=== PATIENT | female | born 1955 | race Caucasian/White ===

== ENCOUNTER 2016-10-26 11:58 | Day surgery (SDC) | payer OTHER ==
[~2016-10-26 11:58] MED LIST: DIPHENHYDRAMINE HCL 50 MG/ML VIAL ONE; EPINEPHRINE INJ 1 MG/10 ML DISP.SYRIN ONE; FENTANYL CITRATE INJ/PF 100 MCG/2 ML AMPUL ONE; FLUMAZENIL INJ 0.5 MG/5 ML VIAL IV ONE; GLUCAGON,HUMAN RECOMB 1 MG INJ ONE; MIDAZOLAM 2 MG/2 ML INJ ONE; NALOXONE HCL INJ/PF 0.4 MG/1 ML SDV ONE; ONDANSETRON HCL INJ/PF 4 MG/2 ML SDV ONE; PROMETHAZINE HCL INJ 25 MG/1 ML VIAL ONE
--- NOTE | 2016-10-26 14:30 | Operative Report ---
Operative Report DATE OF SURGERY: 10/26/16 Operative Report: The risks benefits and alternatives of the procedure explained to the patient in detail and informed consent is obtained that GIF Olympus video scope was inserted into the patient's mouth and hypopharynx the esophagus is identified intubated and insufflated the scope was then advanced through the esophagus stomach and duodenum retroflexion maneuver is done the esophagus stomach and first and second portions of the duodenum examined PREOPERATIVE DIAGNOSIS: Dysfunctional PEG tube POSTOPERATIVE DIAGNOSIS: PEG tube changed with endoscopic assistance. PEG tube was attempted to be pulled out after local sedation and lubrication was provided. However bumper was not able to be pulled out. It did appear calcified after upper endoscopy was done. OPERATION: EGD with percutaneous endoscopic gastrostomy tube change SURGEON: CLAUDIA GASCA ANESTHESIA: Moderate Sedation - 1 mg of Versed administered. TISSUE REMOVED OR ALTERED: None. COMPLICATIONS: None. ESTIMATED BLOOD LOSS: none. INTRAOPERATIVE FINDINGS: Initial attempt at percutaneous removal was unsuccessful. Upper endoscopy had to be done to assist change of the PEG tube. The upper endoscopy is performed the old bumper of the indwelling PEG tube was calcified. This explained the fact that it could not be removed transabdominally. The the bumper was snared. It was cut on the outside. The bumper was retrieved. A new PEG tube was inserted 6 mL of saline was used to insufflate the balloon photodocumentation is obtained PROCEDURE: Patient tolerated the procedure well. No immediate postprocedure complications are noted. Patient is discharged in good condition. Discharge date 10/26/2016 Discharge diet: Regular. Discharge activity: Regular. Follow-up in 2-3 weeks Patient is instructed to call the office or proceed to the emergency room to any further problems or questions Social work up in called to arrange for home assistance
[2016-10-26 15:01] VITALS: BP 118/69
== END 2016-10-26 14:45 | disposition home or self-care (01) ==
LOC: END 11:58
PROVIDERS: ATTEND Internal Medicine Gastroenterology
PROC: 0DH63UZ Insertion of Feeding Device into Stomach, Percutaneous Approach (ICD-10-PCS; principal; 2016-10-26 12:30)
DX: R13.10 Dysphagia, unspecified (principal); I10 Essential (primary) hypertension; E11.9 Type 2 diabetes mellitus without complications; Z86.73 Personal history of transient ischemic attack (TIA), and cerebral infarction without residual deficits; Z79.82 Long term (current) use of aspirin; Z79.899 Other long term (current) drug therapy; Z79.4 Long term (current) use of insulin; Z79.02 Long term (current) use of antithrombotics/antiplatelets
CPT/HCPCS: 43246; 82962; J2250; 43235; 43760; J0171; J1200; J1610; J2310; J2405; J2550; J3010; J3490

== ENCOUNTER 2017-05-12 17:10 | Emergency (ER) | payer OTHER ==
--- NOTE | 2017-05-12 17:29 | ER Document Report ---
ED Blood Pressure Problem - General Chief Complaint: Blood Pressure Problem Stated Complaint: HIGH BLOOD PRESSURE Time Seen by Provider: 05/12/17 17:15 Notes: The patient is a 62-year-old female, past medical history prior CVA with residual left-sided weakness, hyperlipidemia, presents by EMS from home after her occupational therapist took her blood pressure and was 170/80. Patient said that she used to have hypertension and was on medications, but the medications were stopped 1 year ago because her blood pressure was remaining 120 /80. Her primary care physician is at [facility]. Patient denies any complaints at this time. She denies increased weakness, numbness, tingling, blurry vision , headache, fevers, urinary symptoms, chest pain, shortness of breath or difficulty swallowing. TRAVEL OUTSIDE OF THE [place] IN LAST 30 DAYS: No - Related Data Allergies/Adverse Reactions: No Known Allergies Allergy (Verified 10/21/16 15:55) Past Medical History - General Information source: Patient, Relative, Emergency Med Personnel - Social History Smoking Status: Never Smoker Family History: Reviewed & Not Pertinent - Past Medical History Cardiac Medical History: Denies: Hx Coronary Artery Disease, Hx Heart Attack, Hx Hypertension Pulmonary Medical History: Denies: Hx Asthma, Hx Bronchitis, Hx COPD, Hx Pneumonia Neurological Medical History: Reports: Hx Cerebrovascular Accident - 2004, 2014. Denies: Hx Seizures Endocrine Medical History: Reports: Hx Diabetes Mellitus Type 1 Musculoskeltal Medical History: Denies Hx Arthritis - Immunizations Hx Diphtheria, Pertussis, Tetanus Vaccination: Yes Review of Systems - Review of Systems Notes: REVIEW OF SYSTEMS: CONSTITUTIONAL: -fevers, -chills EENT: -eye pain, -difficulty swallowing, -nasal congestion CARDIOVASCULAR:-chest pain, -syncope. RESPIRATORY: -cough, -SOB GASTROINTESTINAL: -abdominal pain, - nausea, -vomiting, -diarrhea GENITOURINARY: -dysuria, -hematuria MUSCULOSKELETAL: -back pain, -neck pain SKIN: -rash or skin lesions. HEMATOLOGIC: -easy bruising or bleeding. LYMPHATIC: -swollen, enlarged glands. NEUROLOGICAL: -altered mental status or loss of consciousness, -headache, - acute neurologic symptoms PSYCHIATRIC: -anxiety, -depression. ALL OTHER SYSTEMS REVIEWED AND NEGATIVE. Physical Exam - Vital signs Vitals: Resp BP Pulse Ox 19 157/72 H 96 05/12/17 17:15 05/12/17 17:15 05/12/17 17:15 - Notes Notes: PHYSICAL EXAMINATION: GENERAL: Well-appearing, well-nourished and in no acute distress. HEAD: Atraumatic, normocephalic. EYES: Pupils equal round and reactive to light, extraocular movements intact, sclera anicteric, conjunctiva are normal. ENT: nares patent, oropharynx clear without exudates. Moist mucous membranes. NECK: Normal range of motion, supple without lymphadenopathy LUNGS: Breath sounds clear to auscultation bilaterally and equal. No wheezes rales or rhonchi. HEART: Regular rate and rhythm without murmurs ABDOMEN: Soft, nontender, normoactive bowel sounds. No guarding, no rebound. No masses appreciated. EXTREMITIES: Normal range of motion, no pitting or edema. No cyanosis. NEUROLOGICAL: Chronic left-sided weakness. 5/5 strength in RUE and RLE. No sensory changes. PSYCH: Normal mood, normal affect. SKIN: Warm, Dry, normal turgor, no rashes or lesions noted. Course - Re-evaluation Re-evalutation: Patient has no symptoms at this time. Her blood pressure in the emergency room is 157/72. Without symptoms, no labs are indicated. Instructed patient to begin a blood pressure log and present it to her primary care physician during her next visit next week. Based on ACEP guidelines, patient should be started on blood pressure medications by primary care physicians due to close follow-up and not in the emergency room. Given strict return precautions and the patient and family understand. - Vital Signs Vital signs: Temp Pulse Resp BP Pulse Ox 19 157/72 H 96 05/12/17 17:15 05/12/17 17:15 05/12/17 17:15 Discharge - Discharge Clinical Impression: High blood pressure Qualifiers: Hypertension type: unspecified Qualified Code(s): I10 - Essential (primary) hypertension Condition: Stable Disposition: HOME, SELF-CARE Additional Instructions: HIGH BLOOD PRESSURE, NOT TREAT: When your blood pressure was taken today it was elevated. Today's reading was 157/92. We do not think you need to have your blood pressure treated today. Sometimes, stress or illness causes a temporary elevation of your blood pressure. We suggest that you get your blood pressure measured again during the next few days to see if this elevated blood pressure is more than a temporary abnormality. If your blood pressure is greater than 150/90 on each occasion, you must have treatment. Some simple things you can do to help are: If you have blood pressure medicine but aren't using it regularly, start taking it again. Get some aerobic exercise for at least 20 minutes on a daily basis. (See your doctor before beginning a new exercise program.) Eat a low-fat diet. Lose excess weight. Avoid salty foods and avoid adding salt to any of the foods you eat. Avoid diet pills, decongestants, "energizing" herbs, and other medicines that elevate blood pressure. If left untreated, hypertension greatly enhances your risk for developing heart disease and strokes. Please don't ignore this problem. FOLLOW-UP CARE: If you have been referred to a physician for follow-up care, call the physician s office for an appointment as you were instructed or within the next two days. If you experience worsening or a significant change in your symptoms, notify the physician immediately or return to the Emergency Department at any time for re-evaluation.
[2017-05-12 18:13] VITALS: BP 159/67
== END 2017-05-12 18:13 | disposition home or self-care (01) ==
LOC: ER 17:10
DX: I10 Essential (primary) hypertension (principal); R53.1 Weakness; E78.5 Hyperlipidemia, unspecified
CPT/HCPCS: 99283

== ENCOUNTER 2017-12-01 12:05 | Day surgery (SDC) | payer OTHER ==
[2017-12-01 12:41] VITALS: BP 140/63
[2017-12-01] MEDS ORDERED: LIDOCAINE 2% JELLY 5 ML TUBE ONE (13:02)
--- NOTE | 2017-12-01 13:38 | Operative Report ---
Operative Report DATE OF SURGERY: 12/01/17 Operative Report: Patient is a dysfunctional PEG tube. She was brought to the recovery area. She was placed in a supine position. Old PEG tube was inspected. It appears to be somewhat calcified. No air could be withdrawn out of the old balloon. Lidocaine gel was used to anesthetize the area. We will PEG tube was carefully removed. The new 20 Martiniquais percutaneous gastrostomy tube was then inserted the balloon insufflated with 7 cc of normal saline the area was cleaned dressed and the patient allowed to go home. There was gastric contents that were aspirated and flushed easily. PREOPERATIVE DIAGNOSIS: Dysfunctional PEG tube POSTOPERATIVE DIAGNOSIS: PEG tube change bedside OPERATION: Bedside. Tube change SURGEON: CLAUDIA GASCA ANESTHESIA: Other - None. TISSUE REMOVED OR ALTERED: None. COMPLICATIONS: None. ESTIMATED BLOOD LOSS: As noted above. INTRAOPERATIVE FINDINGS: As noted above. PROCEDURE: Patient can be discharged home. Follow-up PEG tube change in 6 months.
== END 2017-12-01 13:18 | disposition home or self-care (01) ==
LOC: END 12:05
PROVIDERS: ATTEND Internal Medicine Gastroenterology
DX: R13.10 Dysphagia, unspecified (principal); K94.23 Gastrostomy malfunction
CPT/HCPCS: 43760; 82962

== ENCOUNTER 2018-06-19 11:02 | Day surgery (SDC) | payer OTHER ==
--- NOTE | 2018-06-19 12:56 | Operative Report ---
Operative Report DATE OF SURGERY: 06/19/18 Operative Report: Patient is seen bedside. Old PEG tube appears worse for wear and is dysfunctional. 6-7 cc of normal saline now with to decompress the balloon. The old tube was removed without difficulty. A new tube is then introduced 6-7 cc of normal saline was then used to reinsufflate the new balloon It is noted to be secure Procedure completed No sedation PREOPERATIVE DIAGNOSIS: Dysfunctional PEG tube POSTOPERATIVE DIAGNOSIS: As noted PEG tube change OPERATION: Bedside PEG tube change SURGEON: CLAUDIA GASCA ANESTHESIA: Other - No sedation TISSUE REMOVED OR ALTERED: None COMPLICATIONS: None ESTIMATED BLOOD LOSS: None INTRAOPERATIVE FINDINGS: As noted above PROCEDURE: Patient tolerated procedure well She is discharged in good condition Discharge date 06/19/2018 Discharge diet regular. Discharge activity: Regular. Patient is instructed call the office or proceed to the emergency room should there be any further problems or questions
--- NOTE | 2018-06-23 06:43 | Discharge Summary ---
Discharge Summary (SDC) - Discharge Final Diagnosis: dysfunctional PEG Date of Surgery: 06/19/18 Condition: Stable Treatment or Instructions: Peg tube changed without problems Discharge Diet: Tube Feeding (Comments) - as preivous Respiratory Treatments at Home: Deep Breathing/Coughing
== END 2018-06-19 13:00 | disposition home or self-care (01) ==
LOC: END 11:02
PROVIDERS: ATTEND Internal Medicine Gastroenterology
DX: K94.23 Gastrostomy malfunction (principal); R13.10 Dysphagia, unspecified
CPT/HCPCS: 43760

== ENCOUNTER 2019-06-25 11:37 | Inpatient (IN) | payer MEDICARE, OTHER ==
[2019-06-25] MEDS ORDERED: PROPOFOL 1,000 MG/100 ML INFUS..BTL IV ONE (11:42)
[2019-06-25] MEDS: NORMAL SALINE 1000 ML 1,000 ML IV PRN ×2 (11:46→12:46)
--- NOTE | 2019-06-25 11:51 | ER Document Report ---
ED General - General Stated Complaint: UNRESPONSIVE Time Seen by Provider: 06/25/19 11:44 Mode of Arrival: Stretcher Cannot obtain history due to: Unstable vital signs, Altered mental status TRAVEL OUTSIDE OF THE [place] IN LAST 30 DAYS: No - HPI Onset/Duration: Sudden Severity: Moderate Context: Unfortunate frail chronically ill female arrives via EMS after resp failure and intubation in the field. Reportedly vomited at home and then was unresponsive and could not speak. She is intubated upon arrival with 7-[address] 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 Lives at home and can normally converse without difficulty. No recent illness reportedly. FSBS Approx 200 for EMS. Ketamine and rockuronium given in the field plus 500ml NS and 1 mg epi. - Related Data Allergies/Adverse Reactions: No Known Allergies Allergy (Verified 12/01/17 12:42) Past Medical History - Social History Smoking Status: Unknown if Ever Smoked Family History: Reviewed & Not Pertinent - Past Medical History Cardiac Medical History: Reports: Hx Coronary Artery Disease, Hx Hypertension Denies: Hx Heart Attack Pulmonary Medical History: Denies: Hx Asthma, Hx Bronchitis, Hx COPD, Hx Pneumonia Neurological Medical History: Reports: Hx Cerebrovascular Accident - 2004, 2015 (LEFT ARM AND LEFT LEG CONTRACTED) . Denies: Hx Seizures Endocrine Medical History: Reports: Hx Diabetes Mellitus Type 1, Hx Diabetes Mellitus Type 2 Musculoskeletal Medical History: Denies Hx Arthritis - Immunizations Hx Diphtheria, Pertussis, Tetanus Vaccination: Yes Review of Systems - Review of Systems -: Yes ROS unobtainable due to patient's medical condition Physical Exam - Vital signs Vitals: Resp BP Pulse Ox 16 82/65 L 89 L 06/25/19 11:43 06/25/19 11:43 06/25/19 11:43 Interpretation: Normal - Notes Notes: frail elderly female appears older than stated age. - General General appearance: Unresponsive In distress: None - HEENT Head: Normocephalic, Atraumatic Eyes: Normal Pupils: PERRL - Respiratory Respiratory status: No respiratory distress Chest status: Nontender Breath sounds: Decreased air movement Chest palpation: Normal - Cardiovascular Rhythm: Regular Heart sounds: Normal auscultation Murmur: No - Abdominal Inspection: Normal Distension: No distension Bowel sounds: Normal Tenderness: Nontender Organomegaly: No organomegaly - Extremities General upper extremity: Normal inspection, Nontender, Normal color, Normal ROM, Normal temperature General lower extremity: Normal inspection, Nontender, Normal color, Normal ROM, Normal temperature, Normal weight bearing. No: Dimitrios's sign - Neurological Neuro grossly intact: No - Sedated and intubated GCS 3i Sensory: Normal - Psychological Associated symptoms: Other - unable to assess at this time - Skin Skin Temperature: Warm Skin Moisture: Dry Skin Color: Normal Course - Re-evaluation Re-evalutation: 06/25/19 13:37 MDM Frail infirm female with dense hemiparesis, resp failure, likely aspiration pneumonia and sepsis, dm is agressively rehydrated and antibiotics started. I have spoken with ICU physician and he will see. - Vital Signs Vital signs: Temp Pulse Resp BP Pulse Ox 100.5 F H 102 H 16 143/71 H 97 06/26/19 18:00 06/26/19 18:00 06/26/19 18:00 06/26/19 18:00 06/26/19 18:00 - Laboratory Result Diagrams: 06/26/19 05:37 06/26/19 16:37 Laboratory results interpreted by me: 06/25/19 06/25/19 06/25/19 11:50 11:50 11:50 WBC 10.7 H RBC 3.71 L Hgb 11.5 L Hct 33.5 L Plt Count 91 L Seg Neuts % (Manual) 86 H Band Neutrophils % 8 H Lymphocytes % (Manual) 2 L Abs Neuts (Manual) 10.1 H Abs Lymphs (Manual) 0.2 L PT Carbonic Acid ABG pH ABG pCO2 ABG pO2 ABG HCO3 ABG Total CO2 ABG O2 Saturation Potassium 3.4 L BUN 60 H Est GFR (MDRD) Non-Af 51 L Glucose 187 H Lactic Acid 3.2 H Phosphorus Total Protein 4.9 L Albumin 2.4 L Urine Protein Urine Blood Ur Leukocyte Esterase Urine Ascorbic Acid 06/25/19 06/25/19 06/25/19 11:50 11:50 12:08 WBC RBC Hgb Hct Plt Count Seg Neuts % (Manual) Band Neutrophils % Lymphocytes % (Manual) Abs Neuts (Manual) Abs Lymphs (Manual) PT 16.6 H Carbonic Acid ABG pH ABG pCO2 ABG pO2 ABG HCO3 ABG Total CO2 ABG O2 Saturation Potassium BUN Est GFR (MDRD) Non-Af Glucose Lactic Acid Phosphorus 2.2 L Total Protein Albumin Urine Protein 100 H Urine Blood MODERATE H Ur Leukocyte Esterase LARGE H Urine Ascorbic Acid 40 H 06/25/19 14:30 WBC RBC Hgb Hct Plt Count Seg Neuts % (Manual) Band Neutrophils % Lymphocytes % (Manual) Abs Neuts (Manual) Abs Lymphs (Manual) PT Carbonic Acid 1.04 L ABG pH 7.48 H ABG pCO2 34.5 L ABG pO2 49.6 L ABG HCO3 25.3 H ABG Total CO2 26.3 H ABG O2 Saturation 88.1 L Potassium BUN Est GFR (MDRD) Non-Af Glucose Lactic Acid Phosphorus Total Protein Albumin Urine Protein Urine Blood Ur Leukocyte Esterase Urine Ascorbic Acid - Diagnostic Test Radiology reviewed: Image reviewed, Reports reviewed - EKG Interpretation by Wi EKG shows normal: Sinus rhythm Rate: Tachycardia Rhythm: NSR [place]/QRS: Left axis deviation - Sinus Tachy 104 BPM Poor R wave progression LBBB No st elevation Repolarization abnormality diffusely. Critical Care Note - Critical Care Note Total time excluding time spent on procedures (mins): 30 - Discussed pt with family and EMS and resp and reviewed old chart. Discharge - Discharge Clinical Impression: Respiratory failure Qualifiers: Chronicity: acute Respiratory failure complication: hypoxia Qualified Code(s): J96.01 - Acute respiratory failure with hypoxia Aspiration pneumonia Qualifiers: Aspiration pneumonia type: due to vomit Laterality: bilateral Lung location: unspecified part of lung Qualified Code(s): J69.0 - Pneumonitis due to inhalation of food and vomit Diabetes Qualifiers: Diabetes mellitus type: type 2 Diabetes mellitus adjunct faculty for medical terminology insulin use: without snf use Diabetes mellitus complication status: with other specified complication Qualified Code(s): E11.69 - Type 2 diabetes mellitus with other specified complication Condition: Poor Disposition: ADMITTED INPATIENT Unit Admitted: ICU
--- NOTE | 2019-06-25 12:23 | RADIOLOGY REPORT (SQ) ---
EXAM DESCRIPTION: CHEST SINGLE VIEW COMPLETED DATE/TIME: 06/25/2019 12:05 pm REASON FOR STUDY: aloc COMPARISON: 11/27/2014 EXAM PARAMETERS: NUMBER OF VIEWS: One view. TECHNIQUE: Single frontal radiographic view of the chest acquired. RADIATION DOSE: NA LIMITATIONS: None. FINDINGS: LUNGS AND PLEURA: Right mid-lower lung zone airspace disease suggesting infiltrate. Patc hy airspace disease suggested in the left perihilar region may also represent infiltrate. No pneumot horax or pleural effusion. MEDIASTINUM AND HILAR STRUCTURES: No masses. Contour normal. HEART AND VASCULAR STRUCTURES: Heart normal in size. Normal vasculature. BONES: No acute findings. HARDWARE: Endotracheal tube, the tip is approximately 4.5 cm proximal to the lara. Nasogastric tu be, the visualized distal portion projects over the fundus-body of the stomach. OTHER: No other significant finding. IMPRESSION: 1. Bilateral perihilar airspace disease, more extensive on the right, considerations fo r these findings include infiltrates. 2. Endotracheal and nasogastric tubes. TECHNICAL DOCUMENTATION: JOB ID: [id number] [employer]- All Rights Reserved Reading location - IP/workstation name: [email or web address]
[2019-06-25] MEDS ORDERED: AMPICILLIN SOD/SULBACTAM 3 GM VIAL IV ONE (12:28)
--- NOTE | 2019-06-25 12:41 | RADIOLOGY REPORT (SQ) ---
EXAM DESCRIPTION: CT HEAD WITHOUT COMPLETED DATE/TIME: 06/25/2019 12:29 pm REASON FOR STUDY: aloc COMPARISON: 10/16/2014 TECHNIQUE: Axial images acquired through the brain without intravenous contrast. Images reviewed wi th bone, brain and subdural windows. Additional sagittal and coronal reconstructions were generated. Images stored on PACS. All CT scanners at this facility use dose modulation, iterative reconstruction, and/or weight based d osing when appropriate to reduce radiation dose to as low as reasonably achievable (ALARA). [facility]: Dose Right [facility]: CareDose [facility]: Dose Right [facility]: Teradose 4D [facility]: [employer] RADIATION DOSE: CT Rad equipment meets quality standard of care and radiation dose reduction techniq ues were employed. CTDIvol: 53.2 mGy. DLP: 1017 mGy-cm. mGy. LIMITATIONS: None. FINDINGS: VENTRICLES: Enlarged ventricles secondary to ex vacuo enlargement because of atrophy. CEREBRUM: No masses. No hemorrhage. No midline shift. Prior right MCA infarction. There are some small lacunar infarctions. No evidence for acute infarction. Areas of low density in the white matte r most likely chronic small vessel ischemic changes. CEREBELLUM: No masses. No hemorrhage. No alteration of density. No evidence for acute infarction. EXTRAAXIAL SPACES: No fluid collections. No masses. ORBITS AND GLOBE: No intra- or extraconal masses. Normal contour of globe without masses. CALVARIUM: No fracture. PARANASAL SINUSES: Small amount of fluid in the left maxillary sinus. There is opacification of some of the ethmoid air cells. SOFT TISSUES: No mass or hematoma. OTHER: No other significant finding. IMPRESSION: MICROVASCULAR ISCHEMIA AND GENERALIZED ATROPHY. OLD RIGHT MIDDLE CEREBRAL ARTERY INFARC TION. NO ACUTE IMAGING FINDINGS IN THE BRAIN. EVIDENCE OF ACUTE STROKE: NO. COMMENT: Quality ID # [id number]: Final reports with documentation of one or more dose reduction techniques (e.g., Automated exposure control, adjustment of the mA and/or kV according to patient size, use of iterative reconstruction technique) TECHNICAL DOCUMENTATION: JOB ID: [id number] [employer]- All Rights Reserved Reading location - IP/workstation name: [email or web address]
[2019-06-25 12:45] LABS: HEMATOCRIT 33.5 % (36.0-47.0); HEMOGLOBIN 11.5 g/dL (12.0-15.5); MEAN CORPUSCULAR HEMOGLOBIN 30.9 pg (27.0-33.4); MEAN CORPUSCULAR HGB CONC 34.3 g/dL (32.0-36.0); MEAN CORPUSCULAR VOLUME 90 fl (80-97); RED BLOOD COUNT 3.71 10^6/uL (3.72-5.28); RED CELL DISTRIBUTION WIDTH 13.6 % (11.5-14.0); WHITE BLOOD COUNT 10.7 10^3/uL (4.0-10.5)
[2019-06-25 12:50] LABS: ALBUMIN 2.4 g/dL (3.5-5.0); ALKALINE PHOSPHATASE 81 U/L (38-126); ANION GAP 10 (5-19); ASPARTATE AMINO TRANSFERASE 22 U/L (14-36); BILIRUBIN,DIRECT 0.1 mg/dL (0.0-0.4); BILIRUBIN,TOTAL 0.8 mg/dL (0.2-1.3); BLOOD UREA NITROGEN 60 mg/dL (7-20); CALCIUM 8.4 mg/dL (8.4-10.2); CARBON DIOXIDE 29 mmol/L (22-30); CHLORIDE 100 mmol/L (98-107); CREATINE KINASE 30 U/L (30-135); GLUCOSE 187 mg/dL (75-110); POTASSIUM 3.4 mmol/L (3.6-5.0); TOTAL PROTEIN 4.9 g/dL (6.3-8.2)
[2019-06-25 13:01] LABS: CREATINE KINASE MB 0.7 ng/mL (<4.55)
[2019-06-25] MEDS ORDERED: PROPOFOL 1,000 MG/100 ML INFUS..BTL IV PRN (13:04)
--- NOTE | 2019-06-25 13:09 | EKG REPORT ---
SEVERITY:- ABNORMAL ECG - SINUS TACHYCARDIA VENTRICULAR PREMATURE COMPLEX NONSPECIFIC INTRAVENTRICULAR CONDUCTION DELAY =LBBB ABNRM R PROG, CONSIDER ASMI OR LEAD PLACEMENT MINIMAL ST DEPRESSION, DIFFUSE LEADS NEW CHANGES COMPARED WITH 11/27/14 EKG : Confirmed by: Tone Scherer MD 25-Jun-2019 13:09:00
[2019-06-25 13:10] LABS: APPEARANCE,URINE CLOUDY; BILIRUBIN,URINE NEGATIVE (NEGATIVE); COLOR,URINE AMBER; GLUCOSE, URINE NEGATIVE (NEGATIVE); KETONES,URINE NEGATIVE (NEGATIVE); LEUKOCYTE ESTERASE,URINE LARGE (NEGATIVE); NITRITE,URINE NEGATIVE (NEGATIVE); PROTEIN,URINE 100 mg/dL (NEGATIVE); URINE SPECIFIC GRAVITY 1.019; UROBILINOGEN,URINE NEGATIVE mg/dL (<2.0)
[2019-06-25 13:11] LABS: PLATELET COUNT 91 10^3/uL (150-450)
[2019-06-25 13:14] LABS: ABSOLUTE LYMPHOCYTES# (MANUAL) 0.2 10^3/uL (0.5-4.7); ABSOLUTE MONOCYTES # (MANUAL) 0.4 10^3/uL (0.1-1.4); BAND NEUTROPHILS % (MANUAL) 8 % (3-5); BASOPHILS % (MANUAL) 0 % (0-2); EOSINOPHILS % (MANUAL) 0 % (0-6); LYMPHOCYTES % (MANUAL) 2 % (13-45); MONOCYTES % (MANUAL) 4 % (3-13); POLYCHROMASIA SLIGHT; SEGMENTED NEUTROPHILS % (MAN) 86 % (42-78); TOTAL CELLS COUNTED 100; TOXIC VACUOLATION PRESENT
[2019-06-25 13:15] LABS: PLATELET COMMENT DECREASED
[2019-06-25 13:18] LABS: TROPONIN I 0.066 ng/mL
[2019-06-25] MEDS ORDERED: CLINDAMYCIN 600 MG/D5W RTU 600 MG/50 ML RTUPB IV SCH (14:00)
[2019-06-25] MEDS ORDERED: METRONIDAZOLE RTU 500 MG/NS 100 ML IV ONE (14:42)
[2019-06-25 14:53] LABS: ARTERIAL BLOOD BASE EXCESS 2.2 mmol/L; ARTERIAL BLOOD H2CO3 1.04 mmol/L (1.05-1.35); ARTERIAL BLOOD HCO3 25.3 mmol/L (20-24); ARTERIAL BLOOD O2 SATURATION 88.1 % (94-98); ARTERIAL BLOOD PCO2 34.5 mmHg (35-45); ARTERIAL BLOOD PH 7.48 (7.35-7.45); ARTERIAL BLOOD PO2 49.6 mmHg (80-100); ARTERIAL BLOOD TOTAL CO2 26.3 mmol/L (21-25)
[2019-06-25 14:54] LABS: ARTERIAL BLOOD FIO2 40%
[2019-06-25] MEDS ORDERED: WATER FOR INJECTION,STERILE 1,000 ML with SODIUM BICARBONATE 125 MEQ IV PRN ×2 (14:59)
[2019-06-25] MEDS ORDERED: CEFTRIAXONE 1 GM/D5W RTU 1 GM/50 ML RTUPB IV SCH (15:00)
[2019-06-25] MEDS ORDERED: CEFTRIAXONE 2 GM/D5W RTU 2 GM/50 ML RTUPB IV SCH (15:00)
[2019-06-25] MEDS ORDERED: FUROSEMIDE INJ/PF 20 MG/2 ML SDV IV ONE (15:15)
[2019-06-25] MEDS ORDERED: ACETAMINOPHEN SOLN 325 MG/10.15 ML UDCUP PO ONE (15:16)
[2019-06-25 15:31] LABS: INTERNATIONAL RATION (INR) 1.33; PROTHROMBIN TIME 16.6 SEC (11.4-15.4)
[2019-06-25 16:22] LABS: PHOSPHORUS 2.2 mg/dL (2.5-4.5)
[2019-06-25 16:43] LABS: FREE T4 (FREE THYROXINE) 1.33 ng/dL (0.78-2.19)
[2019-06-25 16:56] LABS: THYROID STIMULATING HORMONE 1.13 uIU/mL (0.47-4.68)
[2019-06-25] MEDS ORDERED: NOREPINEPHRINE BITARTRATE INJ/PF 4 MG/4 ML SDV IV ONE (17:15)
[2019-06-25] MEDS ORDERED: DEXTROSE 5%-WATER 250 ML with NOREPINEPHRINE BITARTRATE 4 MG IV PRN ×2 (17:27)
[2019-06-25] MEDS: PROPOFOL 1,000 MG/100 ML INFUS..BTL IV PRN (17:30)
[2019-06-25] MEDS: METRONIDAZOLE 500 MG/NS RTU 500 MG/100 ML RTUPB IV SCH ×2 (18:09→23:58)
[2019-06-25] MEDS ORDERED: MILRINONE LACTATE/D5W 20 MG/100 ML RTUINJ IV PRN (18:19)
[2019-06-25] MEDS ORDERED: ALBUMIN HUMAN 250 ML IV ONE (18:30)
[2019-06-25] MEDS ORDERED: ALBUMIN HUMAN 500 ML IV ONE (18:30)
[2019-06-25 19:40] LABS: HEMATOCRIT 36.2 % (36.0-47.0); HEMOGLOBIN 12.1 g/dL (12.0-15.5); MEAN CORPUSCULAR HEMOGLOBIN 30.2 pg (27.0-33.4); MEAN CORPUSCULAR HGB CONC 33.6 g/dL (32.0-36.0); MEAN CORPUSCULAR VOLUME 90 fl (80-97); PLATELET COUNT 104 10^3/uL (150-450); RED BLOOD COUNT 4.02 10^6/uL (3.72-5.28); RED CELL DISTRIBUTION WIDTH 13.3 % (11.5-14.0); WHITE BLOOD COUNT 14.9 10^3/uL (4.0-10.5)
[2019-06-25] MEDS ORDERED: HEPARIN SOD (PORCINE) 1,000 UNIT/ML 10 ML VIAL IV ONE (19:58)
[2019-06-25 19:59] LABS: ANION GAP 10 (5-19); BLOOD UREA NITROGEN 58 mg/dL (7-20); CALCIUM 8.7 mg/dL (8.4-10.2); CARBON DIOXIDE 27 mmol/L (22-30); CHLORIDE 102 mmol/L (98-107); GLUCOSE 144 mg/dL (75-110); POTASSIUM 3.5 mmol/L (3.6-5.0)
[2019-06-25 20:03] LABS: ABSOLUTE LYMPHOCYTES# (MANUAL) 0.6 10^3/uL (0.5-4.7); ABSOLUTE MONOCYTES # (MANUAL) 0.9 10^3/uL (0.1-1.4); BAND NEUTROPHILS % (MANUAL) 9 % (3-5); BASOPHILS % (MANUAL) 0 % (0-2); EOSINOPHILS % (MANUAL) 0 % (0-6); LYMPHOCYTES % (MANUAL) 4 % (13-45); MONOCYTES % (MANUAL) 6 % (3-13); PLATELET COMMENT ADEQUATE; RBC MORPHOLOGY COMMENT NORMO-CYTIC/CHROMIC; SEGMENTED NEUTROPHILS % (MAN) 81 % (42-78); TOTAL CELLS COUNTED 100
[2019-06-25 20:04] LABS: TOXIC VACUOLATION PRESENT
--- NOTE | 2019-06-25 20:07 | XCELERA REPORT ---
[address] [address] Transthoracic Echocardiogram Report Name: DAHLIA NEGRO Age: 64 yrs Gender: Female : 1955 Patient Status: Inpatient Patient Location: ICU^609^A Study Date: 06/25/2019 05:31 PM Height: 66 in Weight: 140 lb BSA: 1.7 m2 Procedure: A two-dimensional transthoracic echocardiogram with color flow and Doppler was performed. Study Quality: Fair. Reason For Study: reduced function on screening echo Ordering Physician: CARTER CASTREJON Performed By: Pam Zamora Interpretation Summary The left ventricle is borderline dilated. There is normal left ventricular wall thickness. LV EF is 25% to 30% Left ventricular systolic function is severely reduced. Doppler measurements suggest impaired left ventricular relaxation, which is associated with grade I/IV or mild diastolic dysfunction There is severe global hypokinesis of the left ventricle. Septal motion is consistent with conduction abnormality cannot exclude a small sesile apical lanterior and apical laterak wall clot.Later recommend PANFILO to be sure. The right ventricle is normal in size and function. The right atrium is normal. The left atrial size is normal. Probably no ASD ,VSD or PFO seen. There is mild to moderate mitral annular calcification. There is no evidence of mitral valve prolapse. There is no vegetation seen on the mitral valve. There is no mitral valve stenosis. There is a trace amount of mitral regurgitation There is no aortic valvular vegetation. There is no aortic valve stenosis There is aortic sclerosis without aortic stenosis. There is no LVOT obstruction. There is no tricuspid stenosis. There is a trace amount of tricuspid regurgitation Tricuspid regurgitation jet envelope not well defined to measure RV systolic pressure accurately. There is no pulmonic valvular stenosis. There is no pulmonic valvular regurgitation. The aortic root is normal size. The inferior vena cava appeared dilated and decreased < 50% with respiration (RAP 15-20 mmHg) There is no pericardial effusion. MMode/2D Measurements & Calculations RVDd: 2.0 cm LVIDd: 4.1 cm FS: 12.4 % Ao root diam: 3.0 cm IVSd: 0.96 cm LVIDs: 3.6 cm EDV(Teich): Ao root area: 75.6 ml LVPWd: 1.0 cm 7.0 cm2 ESV(Teich): LA dimension: 2.9 cm 55.1 ml EF(Teich): 27.1 % LVLd ap4: 7.4 cm SV(MOD-sp4): EDV(MOD-sp4): 15.0 ml 46.0 ml LVLs ap4: 6.3 cm ESV(MOD-sp4): 31.0 ml EF(MOD-sp4): 32.6 % Doppler Measurements & Calculations MV E max laurie: MV P1/2t max laurie: Ao V2 max: LV V1 max P.2 cm/sec 51.4 cm/sec 111.0 cm/sec 2.9 mmHg MV A max laurie: MV P1/2t: 60.1 msec Ao max P.9 mmHg LV V1 max: 70.3 cm/sec 85.7 cm/sec MVA(P1/2t): 3.7 cm2 MV E/A: 0.60 MV dec slope: 250.3 cm/sec2 MV dec time: 0.26 sec PA V2 max: PI end-d laurie: MV P1/2t-pr_phl: 117.9 cm/sec 122.2 cm/sec 60.1 msec PA max P.7 mmHg Left Ventricle The left ventricle is borderline dilated. There is normal left ventricular wall thickness. LV EF is 25% to 30%. Left ventricular systolic function is severely reduced. Doppler measurements suggest impaired left ventricular relaxation, which is associated with grade I/IV or mild diastolic dysfunction. There is severe global hypokinesis of the left ventricle. Septal motion is consistent with conduction abnormality. cannot exclude a small sesile apical lanterior and apical laterak wall clot.Later recommend PANFILO to be sure. Right Ventricle The right ventricle is normal in size and function. Atria The right atrium is normal. The left atrial size is normal. Probably no ASD ,VSD or PFO seen. Mitral Valve There is mild to moderate mitral annular calcification. There is no evidence of mitral valve prolapse. There is no vegetation seen on the mitral valve. There is no mitral valve stenosis. There is a trace amount of mitral regurgitation. Aortic Valve There is no aortic valvular vegetation. There is no aortic valve stenosis. There is aortic sclerosis without aortic stenosis. There is no LVOT obstruction. No aortic regurgitation is present. Tricuspid Valve There is no tricuspid stenosis. There is a trace amount of tricuspid regurgitation. Tricuspid regurgitation jet envelope not well defined to measure RV systolic pressure accurately. Pulmonic Valve There is no pulmonic valvular stenosis. There is no pulmonic valvular regurgitation. Great Vessels The aortic root is normal size. The inferior vena cava appeared dilated and decreased < 50% with respiration (RAP 15-20 mmHg). Effusions There is no pericardial effusion. : CARTER CASTREJON, Zandra
--- NOTE | 2019-06-25 20:14 | CRITICAL CARE ADMISSION REPORT ---
HPI Date:: 06/25/19 Time:: 15:10 Reason for ICU Reason:: Hypoxic Respiratory Failure HPI: 64-year-old white female with a story of chronic bedridden state secondary to multiple strokes. She is unable to give a history even at baseline and most of the history is obtained from the son who was present in the emergency room. Son relates that she appeared to have multiple bouts of emesis on Tuesday and he was careful to make sure that she did not aspirate. Noted that her blood sugars were elevated uncharacteristically. He was breathing okay however within 24 hours she became sick again and had an aspiration event. The home health aide noted that she had increased work of breathing and was less responsive than her normal baseline diminished cognition. She was seen by EMS and noted to be in acute respiratory distress with hypoxia with saturations less than 88%. She was intubated with a #7 ET tube. Hypotensive on admission she improved with the 2 and half liters of normal saline she was given in combination from EMS and the emergency room staff. She also received clindamycin and ampicillin. In addition to above she was given rocuronium for the intubation as well as ketamine because of the hypotension. He was also noted to be febrile with a temp of 102. Initial chest x-ray shows bilateral mixed interstitial alveolar pattern. Significant amount of time was spent in the emergency room in evaluation for patient's cause for her condition. Bedside critical care echo showed a reduced ejection fraction with septal dyskinesis left bundle branch block changes and EF of approximately 20%. A formal echo shows possible left thrombus. She became hypotensive while in the ICU requiring vasopressor therapy. With a reduced ejection fraction she was started on milrinone. Central line and arterial catheters were placed. On vascular ultrasound for cr itical care procedures it was noted that she had significant calcifications of her arteries and a right radial was unable to be placed resulting in placing a left femoral arterial catheter under ultrasound guidance. A long lengthy discussion was carried out with the son regarding the patient's condition. She had previously declared herself DNR and the son in conjunction with the patient's has agreed. They elected for the intubation hoping for a rapid improvement. We discussed the patient's hypoxia and possible need for higher level of care. At this point the son would not want the [facility] or [facility] ECMO and would want a limited time trial on the ventilator. If she continues to decline he would request comfort measures only. Medications Propofol (Diprivan Rtu 1000 Mg/100 Ml Inf.Bottle) 1,000 mg in 100 mls @ 1.905 mls/hr IV CONTINUOUS PRN; Protocol PRN Reason: THIS MED IS NOT "PRN" Stop: 07/25/19 13:03 Last Titration: 06/25/19 15:51 Dose: 15 mcg/kg/min, 5.72 mls/hr Documented by: ANNY Swanmond Agitation Sedation Sc Document 06/25/19 15:51 SPORTS CLERK (Rec: 06/25/19 15:51 [id number] RASS [place] Agitation Sedation Scale Restless RASS Score 1 Titration Flowsheet Document 06/25/19 15:51 SPORTS CLERK (Rec: 06/25/19 15:51 [id number] Titration Queries Titration 15 IV Rate 5.72 Titration Cumulative Dose 70 Increase/Decrease Increased Elapsed Time 2h 44m Intake Queries Container Volume 93 Titration Intake 3 Cumulative Intake 7 Total Intake (Rx) 7 Volume Adjusted/Wasted 0 Titration: 06/25/19 15:00 Dose: 10 mcg/kg/min, 3.81 mls/hr Documented by: ANNY [place] Agitation Sedation Sc Document 06/25/19 15:00 SPORTS CLERK (Rec: 06/25/19 15:51 [id number] RASS [place] Agitation Sedation Scale Restless RASS Score 1 Titration Flowsheet Document 06/25/19 15:00 SPORTS CLERK (Rec: 06/25/19 15:51 [id number] Titration Queries Titration 10 IV Rate 3.81 Titration Cumulative Dose 40 Increase/Decrease Increased Elapsed Time 1h 53m Intake Queries Container Volume 96 Titration Intake 4 Cumulative Intake 4 Total Intake (Rx) 4 Volume Adjusted/Wasted 0 Admin: 06/25/19 13:07 Dose: 5 mcg/kg/min, 1.91 mls/hr Documented by: ANNY Lgauna Agitation Sedation Sc Document 06/25/19 13:07 SPORTS CLERK (Rec: 06/25/19 13:07 [id number] RASS [place] Agitation Sedation Scale Moderate Sedation RASS Score -3 Titration Flowsheet Document 06/25/19 13:07 SPORTS CLERK (Rec: 06/25/19 13:07 [id number] Titration Queries Titration 5 IV Rate 1.91 Increase/Decrease Started Elapsed Time 0m Intake Queries Container Volume 100 Volume Adjusted/Wasted 0 Comment Titration Comment veried and given with HARRY Boss Propofol (Diprivan Rtu 1000 Mg/100 Ml Inf.Bottle) 1,000 mg in 100 mls @ 1.905 mls/hr IV CONTINUOUS PRN; Protocol PRN Reason: THIS MED IS NOT "PRN" Stop: 07/25/19 14:24 Last Titration: 06/25/19 18:10 Dose: 25 mcg/kg/min, 9.53 mls/hr Documented by: MEÑO [place] Agitation Sedation Sc Document 06/25/19 18:10 RHU (Rec: 06/25/19 19:58 U [email or web address]) RASS [place] Agitation Sedation Scale Deep Sedation RASS Score -4 Titration Flowsheet Document 06/25/19 18:10 RHU (Rec: 06/25/19 19:58 U [email or web address]) Titration Queries Titration 25 IV Rate 9.53 Titration Cumulative Dose 40 Increase/Decrease Increased Elapsed Time 40m Intake Queries Container Volume 96 Titration Intake 1 Cumulative Intake 4 Total Intake (Rx) 4 Volume Adjusted/Wasted 0 Titration: 06/25/19 18:00 Dose: 20 mcg/kg/min, 7.62 mls/hr Documented by: MEÑO [place] Agitation Sedation Sc Document 06/25/19 18:00 RHU (Rec: 06/25/19 19:57 U [email or web address]) RASS [place] Agitation Sedation Scale Moderate Sedation RASS Score -3 Titration Flowsheet Document 06/25/19 18:00 RHU (Rec: 06/25/19 19:57 U [email or web address]) Titration Queries Titration 20 IV Rate 7.62 Titration Cumulative Dose 30 Increase/Decrease Increased Elapsed Time 30m Intake Queries Container Volume 97 Titration Intake 3 Cumulative Intake 3 Total Intake (Rx) 3 Volume Adjusted/Wasted 0 Admin: 06/25/19 17:30 Dose: 15 mcg/kg/min, 5.72 mls/hr Documented by: MEÑO [place] Agitation Sedation Sc Document 06/25/19 17:30 RHU (Rec: 06/25/19 19:56 U [email or web address]) RASS [place] Agitation Sedation Scale Light Sedation RASS Score -2 Titration Flowsheet Document 06/25/19 17:30 RHU (Rec: 06/25/19 19:56 U [email or web address]) Titration Queries Titration 15 IV Rate 5.72 Increase/Decrease Started Elapsed Time 0m Intake Queries Container Volume 100 Volume Adjusted/Wasted 0 Metronidazole (Flagyl Rtu 500 Mg/Ns 100ml Premix) 500 mg in 100 mls @ 100 mls/hr IV Q6 LAURE Stop: 07/02/19 17:59 Last Admin: 06/25/19 18:09 Dose: 100 mls/hr, 100 mls/hr Documented by: CCUSTY Infusion Flowsheet Document 06/25/19 18:09 CCU (Rec: 06/25/19 18:10 CCU [email or web address]) Infusion Queries Infusion Dose 100 IV Rate 100 Increase/Decrease Started Elapsed Time 0m Intake Queries Container Volume 100 Volume Adjusted/Wasted 0 Norepinephrine Bitartrate 4 mg (/ Dextrose) 250 mls @ 0 mls/hr IV CONTINUOUS PRN; Protocol PRN Reason: THIS MED IS NOT "PRN" Stop: 07/25/19 17:26 Last Titration: 06/25/19 17:55 Dose: 5 mcg/hr, 0.31 mls/hr Documented by: MEÑO Infusion Flowsheet Document 06/25/19 17:55 RHU (Rec: 06/25/19 19:54 [facility] Infusion Queries Infusion Dose 5 IV Rate 0.31 Infusion Cumulative Dose 0 Increase/Decrease Running Elapsed Time 20m Intake Queries Container Volume 250 Infusion Intake 0 Cumulative Intake 0 Total Intake (Rx) 0 Volume Adjusted/Wasted 0 Comment Infusion Comment PER Dr. Dior Titration Flowsheet Document 06/25/19 17:55 RHU (Rec: 06/25/19 19:54 [facility] Titration Queries Titration 5 IV Rate 0.31 Titration Cumulative Dose 0 Increase/Decrease Increased Elapsed Time 20m Intake Queries Container Volume 250 Titration Intake 0 Cumulative Intake 0 Total Intake (Rx) 0 Volume Adjusted/Wasted 0 Titration: 06/25/19 17:45 Dose: 5 mcg/hr, 0.31 mls/hr Documented by: REHUNTER Infusion Flowsheet Document 06/25/19 17:45 RHU (Rec: 06/25/19 19:54 [facility] Infusion Queries Infusion Dose 5 IV Rate 0.31 Infusion Cumulative Dose 0 Increase/Decrease Increased Elapsed Time 10m Intake Queries Container Volume 250 Infusion Intake 0 Cumulative Intake 0 Total Intake (Rx) 0 Volume Adjusted/Wasted 0 Titration Flowsheet Document 06/25/19 17:45 RHU (Rec: 06/25/19 19:54 RHU [email or web address]) Titration Queries Titration 3 IV Rate 0.19 Titration Cumulative Dose 0 Increase/Decrease Increased Elapsed Time 10m Intake Queries Container Volume 250 Titration Intake 0 Cumulative Intake 0 Total Intake (Rx) 0 Volume Adjusted/Wasted 0 Admin: 06/25/19 17:35 Dose: 3 mcg/hr, 0.19 mls/hr Documented by: MATTHEWER Infusion Flowsheet Document 06/25/19 17:35 RHU (Rec: 06/25/19 19:52 RHU [email or web address]) Infusion Queries Infusion Dose 3 IV Rate 0.19 Increase/Decrease Started Elapsed Time 0m Intake Queries Container Volume 250 Volume Adjusted/Wasted 0 Titration Flowsheet Document 06/25/19 17:35 RHU (Rec: 06/25/19 19:52 RHU [email or web address]) Titration Queries Titration 2 IV Rate 0.13 Increase/Decrease Started Elapsed Time 0m Intake Queries Container Volume 250 Volume Adjusted/Wasted 0 Milrinone Lactate/Dextrose (Primacor Rtu 20 Mg-D5w 100 Ml Premix Bag) 20 mg in 100 mls @ 0 mls/hr IV CONTINUOUS PRN; Protocol PRN Reason: THIS MED IS NOT "PRN" Stop: 07/25/19 18:18 Last Admin: 06/25/19 20:09 Dose: 0.25 mcg/kg/min, 4.51 mls/hr Documented by: HFLEMING Titration Flowsheet Document 06/25/19 20:09 HFL (Rec: 06/25/19 20:09 [facility]) Titration Queries Titration 0.25 IV Rate 4.51 Increase/Decrease Started Elapsed Time 0m Intake Queries Container Volume 100 Volume Adjusted/Wasted 0 Discontinued Medications Acetaminophen (Tylenol Soln 325 Mg/10.15 Ml Udcup) 650 mg PO NOW ONE Stop: 06/25/19 15:17 Last Admin: 06/25/19 15:43 Dose: 650 mg Documented by: ANNY Comments: GIVEN THRU PEG PER MD MYERS Indications for Use Document 06/25/19 15:43 SPORTS CLERK (Rec: 06/25/19 15:44 SPORTS CLERK [id number]) Indications for Use Indication for Use Fever Vital Sign Review-Temperature Temperature (97.0 F-100.4 F) 102.8 F Re-Assess: LOUIS Indications for Use Document 06/25/19 17:06 KGO (Rec: 06/25/19 17:06 KGO [id number]) Indications for Use Indication for Use Fever Vital Sign Review-Temperature Temperature (97.0 F-100.4 F) 102.7 F Ampicillin Sodium/Sulbactam Sodium (Unasyn Inj 3 Gm Vial) 3 gm IV IVBAG (ED) ONE Stop: 06/25/19 12:29 Last Admin: 06/25/19 13:03 Dose: 3 gm Documented by: ANNY Infusion Flowsheet Document 06/25/19 13:03 SPORTS CLERK (Rec: 06/25/19 13:04 SPORTS CLERK [id number]) Comment Infusion Comment stopped 1403 Furosemide (Lasix Inj/Pf 20 Mg/2 Ml Sdv) 20 mg IV NOW ONE Stop: 06/25/19 15:16 Last Admin: 06/25/19 15:32 Dose: 20 mg Documented by: ANNY Propofol (Diprivan Rtu 1000 Mg/100 Ml Inf.Bottle) Confirm Administered Dose 1,000 mg in 100 mls @ ud IV .STK-MED ONE Stop: 06/25/19 11:43 Last Admin: 06/25/19 13:05 Dose: Not Given Documented by: ANNY Non-Admin Reason: Documented Elsewhere Sodium Chloride (Nacl 0.9% 1000 Ml Iv Soln) 1,000 mls @ 0 mls/hr IV X 2 BAGS PRN PRN Reason: THIS MED IS NOT "PRN" Last Infusion: 06/25/19 13:45 Dose: 0 mls/hr Documented by: MSCHRAAD Infusion Flowsheet Document 06/25/19 13:45 MJO (Rec: 06/25/19 13:45 MJO [id number]) Infusion Queries IV Rate 0 Infusion Cumulative Dose Not Applicable Increase/Decrease Infused Elapsed Time 1h 59m Intake Queries Container Volume 0 Infusion Intake 1,000 Cumulative Intake 1,000 Total Intake (Rx) 2,000 Volume Adjusted/Wasted 0 Admin: 06/25/19 12:46 Dose: 1,000 mls/hr Documented by: ANNY Infusion Flowsheet Document 06/25/19 12:46 SPORTS CLERK (Rec: 06/25/19 13:06 SPORTS CLERK [id number]) Infusion Queries IV Rate 1,000 Infusion Cumulative Dose Not Applicable Increase/Decrease Started/Running Elapsed Time 1h 0m Intake Queries Container Volume 1,000 Total Intake (Rx) 1,000 Volume Adjusted/Wasted 0 Infusion: 06/25/19 12:46 Dose: 0 mls/hr Documented by: ANNY Infusion Flowsheet Document 06/25/19 12:46 SPORTS CLERK (Rec: 06/25/19 13:05 [id number] Infusion Queries IV Rate 0 Infusion Cumulative Dose Not Applicable Increase/Decrease Infused Elapsed Time 1h 0m Intake Queries Container Volume 0 Infusion Intake 1,000 Cumulative Intake 1,000 Total Intake (Rx) 1,000 Volume Adjusted/Wasted 0 Admin: 06/25/19 11:46 Dose: 1,000 mls/hr Documented by: ANNY Infusion Flowsheet Document 06/25/19 11:46 SPORTS CLERK (Rec: 06/25/19 13:00 [id number][facility] Infusion Queries IV Rate 1,000 Infusion Cumulative Dose Not Applicable Increase/Decrease Started Elapsed Time 0m Intake Queries Container Volume 1,000 Volume Adjusted/Wasted 0 Clindamycin Phosphate/Dextrose (Cleocin Rtu 600 Mg/D5w 50 Ml Premix) 600 mg in 50 mls @ 50 mls/hr IV Q8 LAURE Stop: 07/02/19 13:59 Last Infusion: 06/25/19 14:56 Dose: 0 mls/hr, 0 mls/hr Documented by: PixelleChuck Infusion Flowsheet Document 06/25/19 14:56 MJO (Rec: 06/25/19 15:10 MJO [id number]) Infusion Queries Infusion Dose 0 IV Rate 0 Infusion Cumulative Dose 600 Increase/Decrease Infused Elapsed Time 1h 0m Intake Queries Container Volume 0 Infusion Intake 50 Cumulative Intake 50 Total Intake (Rx) 50 Volume Adjusted/Wasted 0 Admin: 06/25/19 13:56 Dose: 50 mls/hr, 50 mls/hr Documented by: BeSmart Infusion Flowsheet Document 06/25/19 13:56 MJO (Rec: 06/25/19 13:56 [email or web address]) Infusion Queries Infusion Dose 50 IV Rate 50 Increase/Decrease Started Elapsed Time 0m Intake Queries Container Volume 50 Volume Adjusted/Wasted 0 Ceftriaxone Sodium/Dextrose (Rocephin Rtu 2 Gm/D5w 50 Ml Premix Bag) 2 gm in 50 mls @ 100 mls/hr IV DAILY LAURE Stop: 07/02/19 14:59 Last Infusion: 06/25/19 16:15 Dose: 0 mls/hr, 0 mls/hr Documented by: ANGELICA Infusion Flowsheet Document 06/25/19 16:15 KGO (Rec: 06/25/19 17:07 KGO [id number]) Infusion Queries Infusion Dose 0 IV Rate 0 Infusion Cumulative Dose 2 Increase/Decrease Infused Elapsed Time 34m Intake Queries Container Volume 0 Infusion Intake 50 Cumulative Intake 50 Total Intake (Rx) 50 Volume Adjusted/Wasted 0 Admin: 06/25/19 15:41 Dose: 100 mls/hr, 100 mls/hr Documented by: ANNY Antibiotics Document 06/25/19 15:41 SPORTS CLERK (Rec: 06/25/19 15:42 SPORTS CLERK [id number]) Blood Cultures Were blood cultures obtained prior to Yes giving antibiotics? Time blood cultures were obtained 13:00 Date blood cultures were obtained 06/25/19 Infusion Flowsheet Document 06/25/19 15:41 SPORTS CLERK (Rec: 06/25/19 15:42 SPORTS CLERK [id number]) Infusion Queries Infusion Dose 100 IV Rate 100 Increase/Decrease Started Elapsed Time 0m Intake Queries Container Volume 50 Volume Adjusted/Wasted 0 Comment Infusion Comment STOPPED 1611 Metronidazole (Flagyl Rtu 500 Mg/Ns 100ml Premix) 500 mg IV NOW ONE Stop: 06/25/19 14:43 Last Admin: 06/25/19 15:46 Dose: 500 mg Documented by: ANNY Norepinephrine Bitartrate (Levophed Inj/Pf 4 Mg/4 Ml Sdv) Confirm Administered Dose 4 mg IV .STK-MED ONE Stop: 06/25/19 17:16 Last Admin: 06/25/19 19:55 Dose: Not Given Documented by: ROOPAUNTSARAH Non-Admin Reason: scanned elsewhere Vital Signs 06/25/19 06/25/19 06/25/19 11:43 11:44 11:46 Temperature Pulse Rate Respiratory 16 20 18 Rate Blood Pressure 82/65 L Blood Pressure [Left Femoral Artery] Blood Pressure [Right Upper Arm] O2 Sat by Pulse 89 L 90 L 91 L Oximetry 06/25/19 06/25/19 06/25/19 11:47 11:50 11:51 Temperature Pulse Rate Respiratory 16 19 16 Rate Blood Pressure 73/56 L 109/67 Blood Pressure [Left Femoral Artery] Blood Pressure [Right Upper Arm] O2 Sat by Pulse 92 97 97 Oximetry 06/25/19 06/25/19 06/25/19 11:55 11:56 12:00 Temperature Pulse Rate Respiratory 18 20 16 Rate Blood Pressure 124/78 Blood Pressure [Left Femoral Artery] Blood Pressure [Right Upper Arm] O2 Sat by Pulse 97 95 95 Oximetry 06/25/19 06/25/19 06/25/19 12:29 12:30 12:31 Temperature Pulse Rate Respiratory 16 16 16 Rate Blood Pressure 114/61 Blood Pressure [Left Femoral Artery] Blood Pressure [Right Upper Arm] O2 Sat by Pulse 97 98 95 Oximetry 06/25/19 06/25/19 06/25/19 12:32 12:35 12:36 Temperature Pulse Rate Respiratory 16 16 16 Rate Blood Pressure 112/68 116/59 L Blood Pressure [Left Femoral Artery] Blood Pressure [Right Upper Arm] O2 Sat by Pulse 95 94 97 Oximetry 06/25/19 06/25/19 06/25/19 12:40 12:41 12:45 Temperature Pulse Rate Respiratory 16 16 16 Rate Blood Pressure 113/60 Blood Pressure [Left Femoral Artery] Blood Pressure [Right Upper Arm] O2 Sat by Pulse 93 97 93 Oximetry 06/25/19 06/25/19 06/25/19 12:46 12:50 12:51 Temperature Pulse Rate Respiratory 16 16 16 Rate Blood Pressure 118/63 119/74 Blood Pressure [Left Femoral Artery] Blood Pressure [Right Upper Arm] O2 Sat by Pulse 92 92 95 Oximetry 06/25/19 06/25/19 06/25/19 12:55 12:56 13:00 Temperature Pulse Rate Respiratory 16 16 16 Rate Blood Pressure 126/61 H Blood Pressure [Left Femoral Artery] Blood Pressure [Right Upper Arm] O2 Sat by Pulse 96 96 95 Oximetry 06/25/19 06/25/19 06/25/19 13:01 13:05 13:06 Temperature Pulse Rate Respiratory 16 16 16 Rate Blood Pressure 127/64 H 123/71 Blood Pressure [Left Femoral Artery] Blood Pressure [Right Upper Arm] O2 Sat by Pulse 96 95 95 Oximetry 06/25/19 06/25/19 06/25/19 13:30 13:31 14:00 Temperature Pulse Rate Respiratory 16 16 16 Rate Blood Pressure 136/77 H Blood Pressure [Left Femoral Artery] Blood Pressure [Right Upper Arm] O2 Sat by Pulse 94 94 94 Oximetry 06/25/19 06/25/19 06/25/19 14:01 14:30 14:31 Temperature Pulse Rate Respiratory 17 19 18 Rate Blood Pressure 137/71 H 128/70 H Blood Pressure [Left Femoral Artery] Blood Pressure [Right Upper Arm] O2 Sat by Pulse 94 89 L 92 Oximetry 06/25/19 06/25/19 06/25/19 15:00 15:01 15:30 Temperature Pulse Rate Respiratory 21 H 20 21 H Rate Blood Pressure 115/67 Blood Pressure [Left Femoral Artery] Blood Pressure [Right Upper Arm] O2 Sat by Pulse 87 L 88 L 88 L Oximetry 06/25/19 06/25/19 06/25/19 15:31 15:53 15:54 Temperature Pulse Rate Respiratory 24 H 23 H 21 H Rate Blood Pressure 108/68 95/66 L Blood Pressure [Left Femoral Artery] Blood Pressure [Right Upper Arm] O2 Sat by Pulse 88 L 85 L 87 L Oximetry 06/25/19 06/25/19 06/25/19 16:00 16:01 16:10 Temperature Pulse Rate Respiratory 22 H 27 H Rate Blood Pressure 86/58 L Blood Pressure [Left Femoral Artery] Blood Pressure [Right Upper Arm] O2 Sat by Pulse 86 L 85 L 87 L Oximetry 06/25/19 06/25/19 06/25/19 16:28 16:29 16:34 Temperature 101.2 F H Pulse Rate 111 H Respiratory 30 H 28 H 24 H Rate Blood Pressure 87/60 L 87/60 L Blood Pressure [Left Femoral Artery] Blood Pressure 87/60 L [Right Upper Arm] O2 Sat by Pulse 94 Oximetry 06/25/19 06/25/19 06/25/19 16:53 17:00 17:13 Temperature Pulse Rate 103 H Respiratory 22 H 21 H Rate Blood Pressure Blood Pressure [Left Femoral Artery] Blood Pressure [Right Upper Arm] O2 Sat by Pulse 87 L 87 L Oximetry 06/25/19 06/25/19 06/25/19 17:14 17:22 17:23 Temperature Pulse Rate Respiratory 21 H 22 H 21 H Rate Blood Pressure 59/39 L 82/41 L Blood Pressure [Left Femoral Artery] Blood Pressure [Right Upper Arm] O2 Sat by Pulse 87 L 86 L 86 L Oximetry 06/25/19 06/25/19 06/25/19 17:27 17:28 17:42 Temperature Pulse Rate Respiratory 22 H 21 H 12 Rate Blood Pressure 71/34 L Blood Pressure [Left Femoral Artery] Blood Pressure [Right Upper Arm] O2 Sat by Pulse 89 L 88 L 88 L Oximetry 06/25/19 06/25/19 06/25/19 17:43 17:57 17:58 Temperature Pulse Rate Respiratory 16 18 18 Rate Blood Pressure 76/47 L 101/58 L Blood Pressure [Left Femoral Artery] Blood Pressure [Right Upper Arm] O2 Sat by Pulse 87 L 90 L 92 Oximetry 06/25/19 06/25/19 06/25/19 18:00 18:12 18:13 Temperature Pulse Rate Respiratory 16 19 20 Rate Blood Pressure 112/55 L Blood Pressure [Left Femoral Artery] Blood Pressure [Right Upper Arm] O2 Sat by Pulse 93 93 94 Oximetry 06/25/19 06/25/19 06/25/19 18:27 18:28 18:42 Temperature Pulse Rate Respiratory 20 26 H 32 H Rate Blood Pressure 124/55 L Blood Pressure [Left Femoral Artery] Blood Pressure [Right Upper Arm] O2 Sat by Pulse Oximetry 06/25/19 06/25/19 06/25/19 18:43 18:53 18:57 Temperature 100.8 F H Pulse Rate 77 Respiratory 29 H 17 17 Rate Blood Pressure 107/51 L Blood Pressure 97/52 L [Left Femoral Artery] Blood Pressure [Right Upper Arm] O2 Sat by Pulse 90 L Oximetry 06/25/19 06/25/19 06/25/19 18:58 19:00 19:12 Temperature Pulse Rate Respiratory 17 26 H 17 Rate Blood Pressure 102/50 L Blood Pressure [Left Femoral Artery] Blood Pressure [Right Upper Arm] O2 Sat by Pulse Oximetry 06/25/19 06/25/19 06/25/19 19:13 19:27 19:28 Temperature Pulse Rate Respiratory 16 21 H 26 H Rate Blood Pressure 108/46 L 109/51 L Blood Pressure [Left Femoral Artery] Blood Pressure [Right Upper Arm] O2 Sat by Pulse 91 L 89 L Oximetry 06/25/19 06/25/19 19:42 19:43 Temperature Pulse Rate Respiratory 27 H 18 Rate Blood Pressure 109/56 L Blood Pressure [Left Femoral Artery] Blood Pressure [Right Upper Arm] O2 Sat by Pulse 79 L 89 L Oximetry Chest X-Ray 06/25/19 11:45 IMPRESSION: 1. Bilateral perihilar airspace disease, more extensive on the right, considerations for these findings include infiltrates. 2. Endotracheal and nasogastric tubes. Head CT 06/25/19 11:45 IMPRESSION: MICROVASCULAR ISCHEMIA AND GENERALIZED ATROPHY. 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 NO ACUTE IMAGING FINDINGS IN THE BRAIN. EVIDENCE OF ACUTE STROKE: NO. History obtained from:: Son and ED staff - Diagnosis/Plan (1) Cardiogenic shock Is this a current diagnosis for this admission?: Yes (2) ARDS (adult respiratory distress syndrome) Is this a current diagnosis for this admission?: Yes (3) Aspiration pneumonia Qualifiers: Aspiration pneumonia type: due to vomit Laterality: bilateral Lung location: unspecified part of lung Qualified Code(s): J69.0 - Pneumonitis due to inhalation of food and vomit Is this a current diagnosis for this admission?: Yes (4) Lactic acid acidosis Is this a current diagnosis for this admission?: Yes (5) Hypotension arterial Qualifiers: Hypotension type: other hypotension type Qualified Code(s): I95.89 - Other hypotension Is this a current diagnosis for this admission?: Yes (6) Diabetes Qualifiers: Diabetes mellitus type: type 2 Diabetes mellitus correction insulin use: without moth exterminator use Diabetes mellitus complication status: with other specified complication Qualified Code(s): E11.69 - Type 2 diabetes mellitus with other specified complication Is this a current diagnosis for this admission?: Yes Past Medical History Cardiac Medical History: Reports: Hyperlipidema, Hypertension Denies: Atrial Fibrillation, Congestive Heart Failure, Coronary Artery Disease, Myocardial Infarction Pulmonary Medical History: Denies: Asthma, Bronchitis, Chronic Obstructive Pulmonary Disease (COPD), Pneumonia EENT Medical History: Denies: None, Cataracts, Eyes, Ears, Nose, Throat, Other Neurological Medical History: Reports: Ischemic CVA Denies: Hemorrhagic CVA, Seizures Endocrine Medical History: Reports: Diabetes Mellitus Type 2 - Diagnosed in 2006 type II [id number] Denies: Diabetes Mellitus Type 1 Renal/ Medical History: Denies: Chronic Kidney Disease, End Stage Renal Disease Malignancy Medical History: Denies: None GI Medical History: Reports: Other Denies: Cirrhosis, Crohn's Disease, Diverticulitis, Gastroesophageal Reflux Disease, Hepatitis, Hiatal Hernia, Peptic Ulcer Disease, Ulcerative Colitis GI History Note: History of dysphagia with multiple PEG tube placements Musculoskeltal Medical History: Denies: Arthritis Musculoskeletal History Note: 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 Social/Family History - Social History Occupation: Disabled Lives with: Family Smoking Status: Former Smoker Last Time Smoked: Many years ago Frequency of Alcohol Use: None Hx Recreational Drug Use: No Drugs: None Hx Prescription Drug Abuse: No - Family History Family History: Other Family History: Able to be obtained - Medication/Allergies Home Medications: Amlodipine Besylate [Norvasc 5 mg Tablet] 5 mg PO DAILY 06/25/19 Atorvastatin Calcium [Lipitor 80 mg Tablet] 80 mg PO QHS 06/25/19 Clopidogrel Bisulfate [Plavix 75 mg Tablet] 75 mg PO DAILY 06/25/19 Fluoxetine HCl [Prozac 20 mg Capsule] 20 mg PO DAILY 06/25/19 Allergies/Adverse Reactions: No Known Allergies Allergy (Verified 12/01/17 12:42) Review of Systems ROS unobtainable: Due to endotracheal tube, Due to mental status, Other - As per son he noticed that she was warm. She is aspirated multiple times. At baseline, she can only answer yes or no. Her level of cognition is depressed normally however this has worsened today. Son says she has chronic frequent soft stools. She receives tube feeds with Ensure via a PEG tube. He is unable to determine whether she has had chest pain and there is not been any shortness of breath complaints. Physical Exam Vital Signs: Temp Pulse Resp BP Pulse Ox 16 136/77 H 94 06/25/19 13:31 06/25/19 13:31 06/25/19 13:31 Intake & Output 06/24/19 06/25/19 06/26/19 06:59 06:59 06:59 Intake Total 1999 Balance 1999 Weight 63.503 kg Weight/Height Weight 63.503 kg General appearance: PRESENT: thin, well-nourished Exam: Intubated, likely in critically ill appearing 64-year-old female who appears older than stated age hemodynamics as noted above. Eye exam: PRESENT: conjunctiva pink, PERRLA. ABSENT: nystagmus, scleral icterus Ear exam: PRESENT: normal external ear exam Mouth exam: PRESENT: dry mucosa Teeth exam: PRESENT: dental caries, poor dentation Throat exam: PRESENT: other - Unable to evaluate patient intubated. Respiratory exam: PRESENT: crackles, decreased breath sounds, rhonchi. ABSENT: accessory muscle use Cardiovascular exam: PRESENT: tachycardia Pulses: PRESENT: +1 pedal pulses bilateral Vascular exam: ABSENT: normal capillary refill - Capillary refill at 3 -4 seconds, distal digits, foot GI/Abdominal exam: PRESENT: hypoactive bowel sounds, soft. ABSENT: distended, firm, guarding, organolmegaly, rebound, rigid, tenderness Rectal exam: PRESENT: normal inspection. ABSENT: hemorrhoids Gentrourinary exam: PRESENT: indwelling catheter Extremities exam: ABSENT: clubbing Musculoskeletal exam: PRESENT: deformity - Patient has left upper extremity contraction deformity which was present on admission. The left lower extremity is in flexion and ABduction contraction deformity. ABSENT: ambulatory Neurological exam: PRESENT: other - Patient is intubated and had recent neuromuscular blockade. She has chronic contraction deformities of the left upper and lower extremity. Over time she did start to spontaneously move her right upper extremity.. ABSENT: alert, altered, awake Skin exam: ABSENT: cyanosis, erythema, jaundice, mottled, rash, skin tears - No sacral decubiti, urticaria Tubes/Lines: PRESENT: Endotracheal Tube, Peg Tube, Other - Sánchez catheter placed in the emergency room Laboratory/Radiographs Laboratory Results: 06/25/19 11:50 06/25/19 11:50 06/25/19 06/25/19 06/25/19 11:50 11:50 11:50 WBC 10.7 H RBC 3.71 L Hgb 11.5 L Hct 33.5 L MCV 90 MCH 30.9 MCHC 34.3 RDW 13.6 Plt Count 91 L Seg Neutrophils % Not Reportable Carbonic Acid HCO3/H2CO3 Ratio ABG pH ABG pCO2 ABG pO2 ABG HCO3 ABG O2 Saturation ABG Base Excess FiO2 Sodium 139.1 Potassium 3.4 L Chloride 100 Carbon Dioxide 29 Anion Gap 10 BUN 60 H Creatinine 1.08 Est GFR ( Amer) > 60 Glucose 187 H Lactic Acid 3.2 H Calcium 8.4 Magnesium 1.9 Total Bilirubin 0.8 AST 22 Alkaline Phosphatase 81 Total Protein 4.9 L Albumin 2.4 L Urine Color Urine Appearance Urine pH Ur Specific [place] Urine Protein Urine Glucose (UA) Urine Ketones Urine Blood Urine Nitrite Ur Leukocyte Esterase Urine WBC (Auto) Urine RBC (Auto) 06/25/19 06/25/19 11:50 14:30 WBC RBC Hgb Hct MCV MCH MCHC RDW Plt Count Seg Neutrophils % Carbonic Acid 1.04 L HCO3/H2CO3 Ratio 24:1 ABG pH 7.48 H ABG pCO2 34.5 L ABG pO2 49.6 L ABG HCO3 25.3 H ABG O2 Saturation 88.1 L ABG Base Excess 2.2 FiO2 40% Sodium Potassium Chloride Carbon Dioxide Anion Gap BUN Creatinine Est GFR ( Amer) Glucose Lactic Acid Calcium Magnesium Total Bilirubin AST Alkaline Phosphatase Total Protein Albumin Urine Color [place] Urine Appearance CLOUDY Urine pH 5.0 Ur Specific [place] 1.019 Urine Protein 100 H Urine Glucose (UA) NEGATIVE Urine Ketones NEGATIVE Urine Blood MODERATE H Urine Nitrite NEGATIVE Ur Leukocyte Esterase LARGE H Urine WBC (Auto) 57 Urine RBC (Auto) 5 06/25/19 06/25/19 11:50 11:50 Creatine Kinase 30 CK-MB (CK-2) 0.70 Troponin I 0.066 Impressions: Chest X-Ray 06/25/19 11:45 IMPRESSION: 1. Bilateral perihilar airspace disease, more extensive on the right, considerations for these findings include infiltrates. 2. Endotracheal and nasogastric tubes. Head CT 06/25/19 11:45 IMPRESSION: MICROVASCULAR ISCHEMIA AND GENERALIZED ATROPHY. 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 NO ACUTE IMAGING FINDINGS IN THE BRAIN. EVIDENCE OF ACUTE STROKE: NO. EKG: New left bundle branch block from 2015 rightward axis Critical Time Critical Time (minutes): 180 - Includes Critical Care US and Basic echo -: The care of a critically ill patient is dynamic. This note represents a static moment in the admission process. orders and treatments may be given simulataneously and urgentl, and time is not business services representative of the treatment process. This patient requires Critical Care secondary to life threating organ or limb dysfunction. Without the need for Critical Care services, the patient is at risk for increasid mortality and morbidity.
--- NOTE | 2019-06-25 20:19 | Operative Report ---
Bedside Procedure - History of Present Illness Indication for Procedure: Sepsis and Cardiogenic shock Surgeon: CARTER CASTREJON - Central Line Right Internal jugular Time completed: 17:00 Consent obtained: Yes Central line pre-insertion: Sterile PPE donned, Chloraprep applied, Sterile drapes applied Central line size (Fr.): 3 Central line lumen type: Triple Anesthetic type: 1% Lidocaine mL's of anesthesia: 4 Ultrasound guided: Yes CM at insertion site: 15 Line secured with sutures: Yes Central line post-insertion: Blood return from lumens, Biopatch applied, Sutured, Sterile dressing applied, Position confirmed w/ CXR, Other - Position confirmed with ultrasound with wire visible in the internal jugular. CXR shows tip at the RA SVC junction. Complications: No
--- NOTE | 2019-06-25 20:25 | Operative Report ---
Bedside Procedure - History of Present Illness Indication for Procedure: Sepsis with shock Date: 06/25/19 Surgeon: CARTER CASTREJON Provider Note Provider Note: Procedure Placement of left femoral arterial catheter Surgeon: DO Franko [facility] Podiatric Medicine Professor bedside ICU nursing staff Blood loss 10 cc Occasions: None Patient was appropriately identified using chart check name bracelet and ongoing critical care. Consent was obtained from the son prior to the procedure. The right wrist was prepped and draped however a suitable artery was not able to be found. Next the only available site was the left femoral region and this was p repped and draped with chlorhexidine x2. After allowing for sufficient drying and sterility regional barrier precautions were used as well as nonsterile mask and sterile gloves and hat. Under dynamic ultrasound guidance with sterile sleeve the left femoral artery was found. It had significant calcification but was able to be cannulated up. Slow pulsatile blood flow was noted and a wire was placed through the needle. After the wire was placed using typical Seldinger techniques the needle was removed. After the needle was removed a 20- gauge long catheter was placed over wire using typical Seldinger technique. The wire was removed and placed in its loop. Because of the low pulsatility the catheter was affixed to transducer which showed a biphasic waveform. At this point the catheter was maintained in on the transducer tubing and was sutured in place x2. Reapplication of chlorhexidine occurred and a CHG Biopatch and sterile dressing were applied after drying. Patient tolerated procedure well there were no complications. Procedure excludes critical care time
[2019-06-25] MEDS ORDERED: HEPARIN SOD (PORCINE) 1,000 UNIT/ML 10 ML VIAL ONE (20:34)
[2019-06-25] MEDS ORDERED: HEPARIN SODIUM,PORCINE/D5W 25,000 UNIT/250 ML RTUINJ IV ONE (20:34)
--- NOTE | 2019-06-25 20:40 | RADIOLOGY REPORT (SQ) ---
EXAM DESCRIPTION: XR CHEST 1 VIEW COMPLETED DATE/TME: 06/25/2019 00:00 CLINICAL HISTORY: 64 years, Female, line placement COMPARISON: Prior study from earlier the same day NUMBER OF VIEWS: One TECHNIQUE: Single frontal view of the chest was obtained portably LIMITATIONS: None. FINDINGS: Endotracheal tube tip is located within the trachea, approximately 4.7 cm above the lara. Interval placement of right IJ approach central venous catheter with its tip located in the upper SVC. Cardiac and mediastinal contours are stable. Multifocal bilateral airspace disease as a result in the interim, specifically about both mid to lower lung zones. No pneumothorax or large pleural effusion. IMPRESSION: Interval placement of right IJ approach central venous catheter with its tip located in the upper SVC. Patchy bilateral mid to lower lung zone airspace disease, new from the previous exam. Consider atelectasis, pneumonia, or edema. copyright 2010 [employer]- All Rights Reserved
[2019-06-25] MEDS: HEPARIN SODIUM,PORCINE/D5W 25,000 UNIT/250 ML RTUINJ IV PRN (20:46)
--- NOTE | 2019-06-25 21:00 | RADIOLOGY REPORT (SQ) ---
EXAM DESCRIPTION: XR ABDOMEN 1 VIEW (KUB) COMPLETED DATE/TME: 06/25/2019 00:00 CLINICAL HISTORY: 64 years, Female, NG tube placement COMPARISON: None. NUMBER OF VIEWS: One TECHNIQUE: Single frontal view of the abdomen was obtained portably LIMITATIONS: None. FINDINGS: Enteric drainage tube tip is located within the gastric body. The bowel gas pattern is indeterminate secondary to exclusion of the lower half of the abdomen. Mild rightward curvature of the lumbar spine is noted. There is arterial calcinosis. A balloon projects over the left upper quadrant, presumably corresponding to a percutaneous gastrostomy tube. IMPRESSION: Enteric drainage tube tip is located within the gastric body. copyright 2010 [employer]- All Rights Reserved
[2019-06-25] MEDS ORDERED: NORMAL SALINE INJ/PF 0.9% 10 ML SDV IV PRN (21:26)
[2019-06-25] MEDS: HEPARIN SOD (PORCINE) 5,000 UNIT/ML 1 ML VIAL SUBCUT SCH (21:28)
[2019-06-25 21:31] LABS: VENOUS BLOOD BASE EXCESS 2.6 mmol/L; VENOUS BLOOD HCO3 27.6 mmol/L (20-32); VENOUS BLOOD PCO2 43.5 mmHg (35-63); VENOUS BLOOD PH 7.42 (7.30-7.42)
[2019-06-25 21:32] LABS: ARTERIAL BLOOD H2CO3 1.08 mmol/L (1.05-1.35); ARTERIAL BLOOD HCO3 25.4 mmol/L (20-24); ARTERIAL BLOOD O2 SATURATION 90.5 % (94-98); ARTERIAL BLOOD PH 7.47 (7.35-7.45); ARTERIAL BLOOD TOTAL CO2 26.5 mmol/L (21-25)
[2019-06-25 21:33] LABS: ARTERIAL BLOOD FIO2 90%
[2019-06-25 21:36] LABS: ALBUMIN 2.4 g/dL (3.5-5.0); ALKALINE PHOSPHATASE 82 U/L (38-126); ANION GAP 11 (5-19); ASPARTATE AMINO TRANSFERASE 23 U/L (14-36); BILIRUBIN,DIRECT 0.4 mg/dL (0.0-0.4); BILIRUBIN,TOTAL 0.8 mg/dL (0.2-1.3); BLOOD UREA NITROGEN 58 mg/dL (7-20); CALCIUM 8.8 mg/dL (8.4-10.2); CARBON DIOXIDE 26 mmol/L (22-30); CHLORIDE 102 mmol/L (98-107); GLUCOSE 140 mg/dL (75-110); POTASSIUM 3.5 mmol/L (3.6-5.0); TOTAL PROTEIN 5.2 g/dL (6.3-8.2)
[2019-06-25 21:40] LABS: APPEARANCE,URINE CLOUDY; BILIRUBIN,URINE NEGATIVE (NEGATIVE); COLOR,URINE AMBER; GLUCOSE, URINE NEGATIVE (NEGATIVE); KETONES,URINE NEGATIVE (NEGATIVE); LEUKOCYTE ESTERASE,URINE LARGE (NEGATIVE); NITRITE,URINE NEGATIVE (NEGATIVE); PROTEIN,URINE 100 mg/dL (NEGATIVE); URINE SPECIFIC GRAVITY 1.027
[2019-06-25] MEDS: FAMOTIDINE 20 MG TABLET PO SCH (22:01)
[2019-06-25] MEDS ORDERED: GLUCAGON,HUMAN RECOMB 1 MG INJ IM PRN (22:02)
[2019-06-25] MEDS ORDERED: DEXTROSE 40% GEL 15 GM TUBE PO PRN ×2 (22:02)
[2019-06-25] MEDS ORDERED: DEXTROSE 50%-WATER 25 GM/50 ML DISP.SYRIN IV PRN ×2 (22:02)
[2019-06-26 00:08] LABS: A TYPE INFLUENZA AG NEGATIVE (NEGATIVE); B INFLUENZA AG NEGATIVE (NEGATIVE)
[2019-06-26] MEDS: PROPOFOL 1,000 MG/100 ML INFUS..BTL IV PRN ×2 (00:50→11:10)
[2019-06-26 01:18] LABS: ARTERIAL BLOOD BASE EXCESS 2.5 mmol/L; ARTERIAL BLOOD FIO2 30%; ARTERIAL BLOOD H2CO3 0.98 mmol/L (1.05-1.35); ARTERIAL BLOOD HCO3 25.2 mmol/L (20-24); ARTERIAL BLOOD O2 SATURATION 90.6 % (94-98); ARTERIAL BLOOD PCO2 32.4 mmHg (35-45); ARTERIAL BLOOD PH 7.51 (7.35-7.45); ARTERIAL BLOOD PO2 52.6 mmHg (80-100); ARTERIAL BLOOD TOTAL CO2 26.2 mmol/L (21-25)
[2019-06-26] MEDS ORDERED: MEROPENEM 1 GM VIAL IV PRN (04:00)
[2019-06-26] MEDS: HEPARIN SOD (PORCINE) 5,000 UNIT/ML 1 ML VIAL SUBCUT SCH (05:49)
[2019-06-26 05:50] LABS: ARTERIAL BLOOD BASE EXCESS 5.8 mmol/L; ARTERIAL BLOOD FIO2 30%; ARTERIAL BLOOD H2CO3 1.04 mmol/L (1.05-1.35); ARTERIAL BLOOD HCO3 28.4 mmol/L (20-24); ARTERIAL BLOOD O2 SATURATION 92.7 % (94-98); ARTERIAL BLOOD PCO2 34.5 mmHg (35-45); ARTERIAL BLOOD PH 7.53 (7.35-7.45); ARTERIAL BLOOD PO2 56.9 mmHg (80-100); ARTERIAL BLOOD TOTAL CO2 29.5 mmol/L (21-25); VENOUS BLOOD BASE EXCESS 5.1 mmol/L; VENOUS BLOOD HCO3 28.6 mmol/L (20-32); VENOUS BLOOD PCO2 38.4 mmHg (35-63); VENOUS BLOOD PH 7.49 (7.30-7.42)
[2019-06-26 05:53] LABS: HEMATOCRIT 33.6 % (36.0-47.0); HEMOGLOBIN 11.4 g/dL (12.0-15.5); MEAN CORPUSCULAR HEMOGLOBIN 30.7 pg (27.0-33.4); MEAN CORPUSCULAR HGB CONC 33.8 g/dL (32.0-36.0); MEAN CORPUSCULAR VOLUME 91 fl (80-97); RED CELL DISTRIBUTION WIDTH 13.4 % (11.5-14.0); WHITE BLOOD COUNT 9.2 10^3/uL (4.0-10.5)
[2019-06-26 06:04] LABS: ALBUMIN 2.8 g/dL (3.5-5.0); ALKALINE PHOSPHATASE 73 U/L (38-126); ANION GAP 8 (5-19); ASPARTATE AMINO TRANSFERASE 36 U/L (14-36); BILIRUBIN,DIRECT 0.3 mg/dL (0.0-0.4); BILIRUBIN,TOTAL 0.9 mg/dL (0.2-1.3); BLOOD UREA NITROGEN 65 mg/dL (7-20); CALCIUM 8.9 mg/dL (8.4-10.2); CARBON DIOXIDE 32 mmol/L (22-30); CHLORIDE 100 mmol/L (98-107); GLUCOSE 194 mg/dL (75-110); POTASSIUM 3.4 mmol/L (3.6-5.0); TOTAL PROTEIN 5.8 g/dL (6.3-8.2)
[2019-06-26] MEDS ORDERED: MEROPENEM 1 GM VIAL ONE (06:06)
[2019-06-26 06:14] LABS: PLATELET COUNT 74 10^3/uL (150-450)
[2019-06-26 06:17] LABS: ABSOLUTE LYMPHOCYTES# (MANUAL) 0.8 10^3/uL (0.5-4.7); ABSOLUTE MONOCYTES # (MANUAL) 0.6 10^3/uL (0.1-1.4); BAND NEUTROPHILS % (MANUAL) 7 % (3-5); BASOPHILS % (MANUAL) 0 % (0-2); EOSINOPHILS % (MANUAL) 0 % (0-6); LYMPHOCYTES % (MANUAL) 9 % (13-45); METAMYELOCYTES % (MANUAL) 1 % (0); MONOCYTES % (MANUAL) 6 % (3-13); PLATELET COMMENT DECREASED; RBC MORPHOLOGY COMMENT NORMO-CYTIC/CHROMIC; SEGMENTED NEUTROPHILS % (MAN) 77 % (42-78); TOTAL CELLS COUNTED 100
[2019-06-26 06:18] LABS: TOXIC VACUOLATION PRESENT
[2019-06-26] MEDS: MEROPENEM 1 GM in NORMAL SALINE 50 ML IV SCH ×3 (06:19→21:23)
[2019-06-26] MEDS: POTASSI CL 20 MEQ/50 ML RIDER 20 MEQ/50 ML RTUPB IV SCH ×2 (07:52→09:04)
[2019-06-26] MEDS ORDERED: INFLUENZA QUAD (6MOS+) 2019-20 VAC 0.5 ML SYR IM ONE (08:00)
[2019-06-26 09:08] LABS: PHOSPHORUS 2.7 mg/dL (2.5-4.5)
[2019-06-26 09:21] LABS: CREATINE KINASE MB 1.83 ng/mL (<4.55); TROPONIN I 0.047 ng/mL
[2019-06-26 10:50] LABS: VENOUS BLOOD HCO3 30.1 mmol/L (20-32); VENOUS BLOOD PCO2 46.2 mmHg (35-63); VENOUS BLOOD PH 7.43 (7.30-7.42)
[2019-06-26] MEDS: FAMOTIDINE 20 MG TABLET PO SCH ×2 (11:10→21:23)
[2019-06-26 11:59] LABS: ARTERIAL BLOOD BASE EXCESS 5.6 mmol/L; ARTERIAL BLOOD H2CO3 1.15 mmol/L (1.05-1.35); ARTERIAL BLOOD O2 SATURATION 72.7 % (94-98); ARTERIAL BLOOD PCO2 38.1 mmHg (35-45); ARTERIAL BLOOD TOTAL CO2 30.2 mmol/L (21-25)
[2019-06-26 12:04] LABS: ARTERIAL BLOOD FIO2 30%; ARTERIAL BLOOD PO2 34.9 mmHg (80-100)
--- NOTE | 2019-06-26 14:03 | RADIOLOGY REPORT (SQ) ---
EXAM DESCRIPTION: KUB/ABDOMEN (SINGLE VIEW) COMPLETED DATE/TIME: 06/26/2019 1:17 pm REASON FOR STUDY: feeding tube integrity COMPARISON: None. NUMBER OF VIEWS: One view. TECHNIQUE: Supine radiographic image of the abdomen acquired. LIMITATIONS: None. FINDINGS: BOWEL GAS PATTERN: Normal bowel gas pattern. CALCIFICATIONS: No suspicious calcifications. SOFT TISSUES: No gross mass or suggestion of organomegaly. HARDWARE: Gastrostomy tube. BONES: No acute fracture. No worrisome bone lesions. OTHER: Contrast is present in the stomach by way of the gastrostomy tube. IMPRESSION: The gastrostomy tube is positioned in the stomach and is patent. TECHNICAL DOCUMENTATION: JOB ID: [id number] [employer]- All Rights Reserved Reading location - IP/workstation name: [email or web address]
--- NOTE | 2019-06-26 15:28 | RADIOLOGY REPORT (SQ) ---
EXAM DESCRIPTION: CHEST SINGLE VIEW COMPLETED DATE/TIME: 06/26/2019 3:11 pm REASON FOR STUDY: Pneumonitis COMPARISON: 06/25/2019 EXAM PARAMETERS: NUMBER OF VIEWS: One view. TECHNIQUE: Single frontal radiographic view of the chest acquired. RADIATION DOSE: NA LIMITATIONS: None. FINDINGS: LUNGS AND PLEURA: There is opacification in the left mid and lower lung PA and in the righ t base. MEDIASTINUM AND HILAR STRUCTURES: No masses. Contour normal. HEART AND VASCULAR STRUCTURES: Heart normal in size. Normal vasculature. BONES: No acute findings. HARDWARE: None in the chest. OTHER: No other significant finding. IMPRESSION: Multicentric pneumonia. TECHNICAL DOCUMENTATION: JOB ID: [id number] [employer]- All Rights Reserved Reading location - IP/workstation name: [email or web address]
[2019-06-26 17:17] LABS: ARTERIAL BLOOD BASE EXCESS 4.6 mmol/L; ARTERIAL BLOOD H2CO3 1.08 mmol/L (1.05-1.35); ARTERIAL BLOOD HCO3 27.7 mmol/L (20-24); ARTERIAL BLOOD O2 SATURATION 76.4 % (94-98); ARTERIAL BLOOD PCO2 35.9 mmHg (35-45); ARTERIAL BLOOD TOTAL CO2 28.8 mmol/L (21-25)
[2019-06-26 17:18] LABS: ARTERIAL BLOOD BASE EXCESS 4.9 mmol/L; ARTERIAL BLOOD HCO3 27.3 mmol/L (20-24); ARTERIAL BLOOD O2 SATURATION 94.6 % (94-98); ARTERIAL BLOOD PCO2 33.1 mmHg (35-45); ARTERIAL BLOOD PO2 63.5 mmHg (80-100); ARTERIAL BLOOD TOTAL CO2 28.3 mmol/L (21-25)
[2019-06-26 17:25] LABS: ARTERIAL BLOOD FIO2 30%
[2019-06-26 17:26] LABS: ARTERIAL BLOOD PH 7.51 (7.35-7.45); ARTERIAL BLOOD PH 7.53 (7.35-7.45)
[2019-06-26 17:42] LABS: ANION GAP 7 (5-19); BLOOD UREA NITROGEN 68 mg/dL (7-20); CALCIUM 8.8 mg/dL (8.4-10.2); CARBON DIOXIDE 30 mmol/L (22-30); CHLORIDE 103 mmol/L (98-107); GLUCOSE 170 mg/dL (75-110); PHOSPHORUS 2.5 mg/dL (2.5-4.5); POTASSIUM 3.6 mmol/L (3.6-5.0)
--- NOTE | 2019-06-26 19:53 | PDOC PROGRESS REPORT ---
Subjective Progress Note for:: 06/26/19 Subjective:: Patient admitted for septic shock. Echocardiogram obtained because the base line critical care ultrasound screen showed reduction in EF. Official formal echocardiogram showed an EF about 15 to 20%. Patient was started on Levophed and milrinone. Patient has improved significantly in the last 12 hours. She is clearing her lactic acid and she does not have a significant acidosis. We had some difficulty in obtaining mixed venous gases however this morning's mixed venous gases are acceptable. She does have some low urine output which has improved. Her creatinine has improved as well. Sedation is being weaned and FiO2 is now down to 30%. PEEP has been reduced. Of significance are gram negatives growing in blood sputum and urine. Notably the echocardiogram also showed a possible thrombus in the left ventricle and she was started on heparin. Reason For Visit: SEPSIS Physical Exam Vital Signs: Temp Pulse Resp BP Pulse Ox 100.5 F H 102 H 16 143/71 H 97 06/26/19 18:00 06/26/19 18:00 06/26/19 18:00 06/26/19 18:00 06/26/19 18:00 Intake & Output 06/25/19 06/26/19 06/27/19 06:59 06:59 06:59 Intake Total 2617 543 Output Total 955 210 Balance 1662 333 Weight 58.5 kg Physical Exam: Chronically and critically ill appearing intubated no active distress. No response on low-dose sedation General appearance: PRESENT: no acute distress, thin Head exam: PRESENT: atraumatic, normocephalic Eye exam: PRESENT: conjunctiva pink, PERRLA. ABSENT: conjunctival injection, nystagmus, scleral icterus Mouth exam: PRESENT: dry mucosa, neck supple Teeth exam: PRESENT: poor dentation Neck exam: ABSENT: carotid bruit, JVD, lymphadenopathy, meningismus, tenderness, thyromegaly, tracheal deviation Respiratory exam: PRESENT: crackles, unlabored. ABSENT: accessory muscle use Cardiovascular exam: PRESENT: RRR, +S1, +S2, tachycardia - Occassionally Vascular exam: PRESENT: normal capillary refill GI/Abdominal exam: PRESENT: hypoactive bowel sounds. ABSENT: ascites, distended, firm, guarding, mass, Greene's sign, rebound, rigid, soft Additonal comments: PEG tube site clean and dry. There is minimal erosion erythema but no active erythema indicative of infection. 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 Left upper extremity is held in flexion with contractures of the fingers. Left lower extremity is held in abduction and flexion at the knee contracture. The right leg has foot drop. Neurological exam: PRESENT: altered Additional comments: Glascow coma scale is 1-1T-1 on sedation. At baseline patient's level of cognition is diminished. Skin exam: PRESENT: intact. ABSENT: abrasion, cyanosis, erythema, jaundice, mottled, pallor, rash, skin tears, urticaria, vesicles Results Laboratory Results: 06/26/19 05:37 06/26/19 16:37 06/25/19 06/25/19 06/25/19 19:10 19:10 19:10 WBC RBC Hgb Hct MCV MCH MCHC RDW Plt Count Seg Neutrophils % Carbonic Acid HCO3/H2CO3 Ratio ABG pH ABG pCO2 ABG pO2 ABG HCO3 ABG O2 Saturation ABG Base Excess VBG pH Cancelled VBG pCO2 Cancelled VBG HCO3 Cancelled VBG Base Excess Cancelled FiO2 Sodium Potassium Chloride Carbon Dioxide Anion Gap BUN Creatinine Est GFR ( Amer) Glucose Lactic Acid 2.7 H Calcium Phosphorus Magnesium Total Bilirubin AST Alkaline Phosphatase Ammonia Cancelled Total Protein Albumin Urine Color Urine Appearance Urine pH Ur Specific [place] Urine Protein Urine Glucose (UA) Urine Ketones Urine Blood Urine Nitrite Ur Leukocyte Esterase Urine WBC (Auto) Urine RBC (Auto) 06/25/19 06/25/19 06/25/19 19:10 19:10 19:10 WBC 14.9 H RBC 4.02 Hgb 12.1 Hct 36.2 MCV 90 MCH 30.2 MCHC 33.6 RDW 13.3 Plt Count 104 L Seg Neutrophils % Not Reportable Carbonic Acid HCO3/H2CO3 Ratio ABG pH ABG pCO2 ABG pO2 ABG HCO3 ABG O2 Saturation ABG Base Excess VBG pH VBG pCO2 VBG HCO3 VBG Base Excess FiO2 Sodium 139.4 Potassium 3.5 L Chloride 102 Carbon Dioxide 27 Anion Gap 10 BUN 58 H Creatinine 1.13 Est GFR ( Amer) 58 L Glucose 144 H Lactic Acid Calcium 8.7 Phosphorus Magnesium Total Bilirubin AST Alkaline Phosphatase Ammonia < 8.7 L Total Protein Albumin Urine Color Urine Appearance Urine pH Ur Specific [place] Urine Protein Urine Glucose (UA) Urine Ketones Urine Blood Urine Nitrite Ur Leukocyte Esterase Urine WBC (Auto) Urine RBC (Auto) 06/25/19 06/25/19 06/25/19 19:45 20:44 21:15 WBC RBC Hgb Hct MCV MCH MCHC RDW Plt Count Seg Neutrophils % Carbonic Acid Cancelled 1.08 HCO3/H2CO3 Ratio Cancelled 23:1 ABG pH Cancelled 7.47 H ABG pCO2 Cancelled 36.0 ABG pO2 Cancelled 55.0 L ABG HCO3 Cancelled 25.4 H ABG O2 Saturation Cancelled 90.5 L ABG Base Excess Cancelled 2.0 VBG pH VBG pCO2 VBG HCO3 VBG Base Excess FiO2 Cancelled 90% Sodium 139.0 Potassium 3.5 L Chloride 102 Carbon Dioxide 26 Anion Gap 11 BUN 58 H Creatinine 1.22 Est GFR ( Amer) 54 L Glucose 140 H Lactic Acid Calcium 8.8 Phosphorus Magnesium Total Bilirubin 0.8 AST 23 Alkaline Phosphatase 82 Ammonia Total Protein 5.2 L Albumin 2.4 L Urine Color Urine Appearance Urine pH Ur Specific [place] Urine Protein Urine Glucose (UA) Urine Ketones Urine Blood Urine Nitrite Ur Leukocyte Esterase Urine WBC (Auto) Urine RBC (Auto) 06/25/19 06/25/19 06/25/19 21:15 21:20 22:35 WBC RBC Hgb Hct MCV MCH MCHC RDW Plt Count Seg Neutrophils % Carbonic Acid HCO3/H2CO3 Ratio ABG pH ABG pCO2 ABG pO2 ABG HCO3 ABG O2 Saturation ABG Base Excess VBG pH 7.42 VBG pCO2 43.5 VBG HCO3 27.6 VBG Base Excess 2.6 FiO2 Sodium Potassium Chloride Carbon Dioxide Anion Gap BUN Creatinine Est GFR ( Amer) Glucose Lactic Acid 3.0 H Calcium Phosphorus Magnesium Total Bilirubin AST Alkaline Phosphatase Ammonia Total Protein Albumin Urine Color [place] Urine Appearance CLOUDY Urine pH 5.0 Ur Specific [place] 1.027 Urine Protein 100 H Urine Glucose (UA) NEGATIVE Urine Ketones NEGATIVE Urine Blood LARGE H Urine Nitrite NEGATIVE Ur Leukocyte Esterase LARGE H Urine WBC (Auto) >182 Urine RBC (Auto) 45 06/26/19 06/26/19 06/26/19 01:10 02:20 05:37 WBC RBC Hgb Hct MCV MCH MCHC RDW Plt Count Seg Neutrophils % Carbonic Acid 0.98 L HCO3/H2CO3 Ratio 25:1 ABG pH 7.51 H ABG pCO2 32.4 L ABG pO2 52.6 L ABG HCO3 25.2 H ABG O2 Saturation 90.6 L ABG Base Excess 2.5 VBG pH 7.49 H VBG pCO2 38.4 VBG HCO3 28.6 VBG Base Excess 5.1 FiO2 30% Sodium Potassium Chloride Carbon Dioxide Anion Gap BUN Creatinine Est GFR ( Amer) Glucose Lactic Acid 2.4 H Calcium Phosphorus Magnesium Total Bilirubin AST Alkaline Phosphatase Ammonia Total Protein Albumin Urine Color Urine Appearance Urine pH Ur Specific [place] Urine Protein Urine Glucose (UA) Urine Ketones Urine Blood Urine Nitrite Ur Leukocyte Esterase Urine WBC (Auto) Urine RBC (Auto) 06/26/19 06/26/19 06/26/19 05:37 05:37 05:37 WBC 9.2 RBC 3.70 L Hgb 11.4 L Hct 33.6 L MCV 91 MCH 30.7 MCHC 33.8 RDW 13.4 Plt Count 74 L Seg Neutrophils % Not Reportable Carbonic Acid 1.04 L HCO3/H2CO3 Ratio 27:1 ABG pH 7.53 H ABG pCO2 34.5 L ABG pO2 56.9 L ABG HCO3 28.4 H ABG O2 Saturation 92.7 L ABG Base Excess 5.8 VBG pH VBG pCO2 VBG HCO3 VBG Base Excess FiO2 30% Sodium 139.5 Potassium 3.4 L Chloride 100 Carbon Dioxide 32 H Anion Gap 8 BUN 65 H Creatinine 1.36 H Est GFR ( Amer) 47 L Glucose 194 H Lactic Acid Calcium 8.9 Phosphorus Magnesium Total Bilirubin 0.9 AST 36 Alkaline Phosphatase 73 Ammonia Total Protein 5.8 L Albumin 2.8 L Urine Color Urine Appearance Urine pH Ur Specific [place] Urine Protein Urine Glucose (UA) Urine Ketones Urine Blood Urine Nitrite Ur Leukocyte Esterase Urine WBC (Auto) Urine RBC (Auto) 06/26/19 06/26/19 06/26/19 06:40 08:12 08:12 WBC RBC Hgb Hct MCV MCH MCHC RDW Plt Count Seg Neutrophils % Carbonic Acid HCO3/H2CO3 Ratio ABG pH ABG pCO2 ABG pO2 ABG HCO3 ABG O2 Saturation ABG Base Excess VBG pH VBG pCO2 VBG HCO3 VBG Base Excess FiO2 Sodium Potassium Chloride Carbon Dioxide Anion Gap BUN Creatinine Est GFR ( Amer) Glucose Lactic Acid 2.0 1.7 Calcium Phosphorus 2.7 Magnesium 2.1 Total Bilirubin AST Alkaline Phosphatase Ammonia Total Protein Albumin Urine Color Urine Appearance Urine pH Ur Specific [place] Urine Protein Urine Glucose (UA) Urine Ketones Urine Blood Urine Nitrite Ur Leukocyte Esterase Urine WBC (Auto) Urine RBC (Auto) 06/26/19 06/26/19 06/26/19 10:37 11:28 16:37 WBC RBC Hgb Hct MCV MCH MCHC RDW Plt Count Seg Neutrophils % Carbonic Acid 1.15 HCO3/H2CO3 Ratio 25:1 ABG pH 7.50 H ABG pCO2 38.1 ABG pO2 34.9 L* ABG HCO3 29.0 H ABG O2 Saturation 72.7 L ABG Base Excess 5.6 VBG pH 7.43 H VBG pCO2 46.2 VBG HCO3 30.1 VBG Base Excess 5.0 FiO2 30% Sodium 140.1 Potassium 3.6 Chloride 103 Carbon Dioxide 30 Anion Gap 7 BUN 68 H Creatinine 1.15 Est GFR ( Amer) 57 L Glucose 170 H Lactic Acid Calcium 8.8 Phosphorus 2.5 Magnesium 2.1 Total Bilirubin AST Alkaline Phosphatase Ammonia Total Protein Albumin Urine Color Urine Appearance Urine pH Ur Specific [place] Urine Protein Urine Glucose (UA) Urine Ketones Urine Blood Urine Nitrite Ur Leukocyte Esterase Urine WBC (Auto) Urine RBC (Auto) 06/26/19 06/26/19 06/26/19 16:37 16:40 16:40 WBC RBC Hgb Hct MCV MCH MCHC RDW Plt Count Seg Neutrophils % Carbonic Acid 1.08 HCO3/H2CO3 Ratio 25:1 ABG pH 7.51 H ABG pCO2 35.9 ABG pO2 37.0 L* ABG HCO3 27.7 H ABG O2 Saturation 76.4 L ABG Base Excess 4.6 VBG pH Cancelled VBG pCO2 Cancelled VBG HCO3 Cancelled VBG Base Excess Cancelled FiO2 30% Sodium Potassium Chloride Carbon Dioxide Anion Gap BUN Creatinine Est GFR ( Amer) Glucose Lactic Acid 1.4 Calcium Phosphorus Magnesium Total Bilirubin AST Alkaline Phosphatase Ammonia Total Protein Albumin Urine Color Urine Appearance Urine pH Ur Specific [place] Urine Protein Urine Glucose (UA) Urine Ketones Urine Blood Urine Nitrite Ur Leukocyte Esterase Urine WBC (Auto) Urine RBC (Auto) 06/26/19 16:40 WBC RBC Hgb Hct MCV MCH MCHC RDW Plt Count Seg Neutrophils % Carbonic Acid 1.00 L HCO3/H2CO3 Ratio 27:1 ABG pH 7.53 H ABG pCO2 33.1 L ABG pO2 63.5 L ABG HCO3 27.3 H ABG O2 Saturation 94.6 ABG Base Excess 4.9 VBG pH VBG pCO2 VBG HCO3 VBG Base Excess FiO2 30% Sodium Potassium Chloride Carbon Dioxide Anion Gap BUN Creatinine Est GFR ( Amer) Glucose Lactic Acid Calcium Phosphorus Magnesium Total Bilirubin AST Alkaline Phosphatase Ammonia Total Protein Albumin Urine Color Urine Appearance Urine pH Ur Specific [place] Urine Protein Urine Glucose (UA) Urine Ketones Urine Blood Urine Nitrite Ur Leukocyte Esterase Urine WBC (Auto) Urine RBC (Auto) 06/25/19 06/25/19 06/25/19 11:50 11:50 19:10 Creatine Kinase 30 CK-MB (CK-2) 0.70 Troponin I 0.066 0.070 06/26/19 06/26/19 06/26/19 03:24 08:12 08:12 Creatine Kinase 59 CK-MB (CK-2) 1.83 Troponin I 0.052 0.047 Impressions: Head CT 06/25/19 11:45 IMPRESSION: MICROVASCULAR ISCHEMIA AND GENERALIZED ATROPHY. 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 NO ACUTE IMAGING FINDINGS IN THE BRAIN. EVIDENCE OF ACUTE STROKE: NO. KUB X-Ray 06/26/19 00:00 IMPRESSION: The gastrostomy tube is positioned in the stomach and is patent. Chest X-Ray 06/26/19 14:45 IMPRESSION: Multicentric pneumonia. Assessment & Plan - Diagnosis (1) Sepsis due to Gram negative bacteria Is this a current diagnosis for this admission?: Yes (2) Cardiogenic shock Is this a current diagnosis for this admission?: Yes (3) ARDS (adult respiratory distress syndrome) Is this a current diagnosis for this admission?: Yes (4) Aspiration pneumonia Qualifiers: Aspiration pneumonia type: due to vomit Laterality: bilateral Lung location: unspecified part of lung Qualified Code(s): J69.0 - Pneumonitis due to inhalation of food and vomit Is this a current diagnosis for this admission?: Yes (5) Lactic acid acidosis Is this a current diagnosis for this admission?: Yes (8) Pneumonia due to gram-negative bacteria Is this a current diagnosis for this admission?: Yes (9) Hypotension arterial Qualifiers: Hypotension type: other hypotension type Qualified Code(s): I95.89 - Other hypotension Is this a current diagnosis for this admission?: Yes (10) Left ventricular thrombus Is this a current diagnosis for this admission?: Yes (11) Aspiration pneumonia Qualifiers: Aspiration pneumonia type: due to regurgitated food Laterality: bilateral Lung location: unspecified part of lung Qualified Code(s): J69.0 - Pneumonitis due to inhalation of food and vomit Is this a current diagnosis for this admission?: Yes (12) Complicated UTI (urinary tract infection) Is this a current diagnosis for this admission?: Yes (13) Diabetes Qualifiers: Diabetes mellitus type: type 2 Diabetes mellitus longterm insulin use: without terminologist use Diabetes mellitus complication status: with other specified complication Qualified Code(s): E11.69 - Type 2 diabetes mellitus with other specified complication Is this a current diagnosis for this admission?: Yes - Time Time Spent with patient: 35 or more minutes Total Critical Time (Minutes): 60 Medications reviewed and adjusted accordingly: Yes Anticipated discharge: SNF Within: Other - Inpatient Certification Based on my medical assessment, after consideration of the patient's comorbidities, presenting symptoms, or acuity I expect that the services needed warrant INPATIENT care.: Yes I certify that my determination is in accordance with my understanding of Medicare's requirements for reasonable and necessary INPATIENT services [42 CFR 412.3e].: Yes Medical Necessity: Significant Comorbidiites Make Outpatient Treatment Too Risky, Need Close Monitoring Due to Risk of Patient Decompensation, Need For IV Fluids, Need For Continuous Telemetry Monitoring, Need for Neurological Checks, Need for IV Antibiotics, Other - Mechanical ventilation - Plan Summary Plan Summary: Patient has had significant improvement. From a respiratory standpoint we will begin to wean PEEP and her FiO2 is already been weaned. In evaluation of patient on pressure support she is still too weak and cannot generate an adequate tidal volume and has an increase in minute ventilation because of an increase in respiratory rate. Her chest x-ray has improved as well. She has gram negatives growing in her initial Gram stain and will continue to follow for culture and sensitivity. Given her baseline markedly deconditioned state she may be difficult to wean. I had a lengthy discussion with her son who would not want prolonged mechanical ventilation. From an infectious disease standpoint patient has gram negatives growing in both her bloodstream sputum and urine. I am assuming this will be E. coli but will await the cultures and sensitivities. She was changed to meropenem yesterday but we may be able to de-escalate given her improvement. Will await sensitivities once cultures have been obtained. Given her overall improvement her sepsis has improved there is no need for gram-negative coverage. In IDSA guidelines stipulate that repeat cultures for bacteremia are unnecessary and gram-negative cases as long as a source can be determined. Cardiac standpoint patient has a left ventricular thrombus potentially seen on echo. She has been started on heparin therapy. Even if this is a shadow effect given her low cardiac output it will be of more benefit to have her on anticoagulation. We will continue to monitor her PTT. She needs a more formal PANFILO but we are unable to perform that at this hospital. Her mixed venous gas has improved and she is now off levophed. Her lactic acid has improved and her milrinone is now being weaned to off. I am impressed with her mixed venous gas. Continue to follow supportively. 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 From an endocrine standpoint patient's cortisol level is excessively high. Mortality rates in cases of sepsis with high cortisol levels noted to be exceptionally high. Continue to follow her glucose levels with [id number] testing but have not initiated insulin therapy. He does have type II [id number] diabetes but the family had noted in the last few days that her glucose levels have been elevated. Renal function has improved and she did develop acute renal dysfunction in the face of her shock like state. We will continue to monitor her as the milrinone is discontinued. Her urine is positive for gram-negative organisms and will await cultures. If there is no further improvement we will obtain CT scan to rule out other sources. From a metabolic standpoint patient has a respiratory and metabolic alkalosis. She has been on a bicarb drip for short period of time. We will continue to follow her pH. Continue to replace electrolytes. From an alimentary tract standpoint I am concerned that patient has been aspirating at home. We did do a KUB with Gastrografin which showed integrity of the GI tract PEG tube system. If this continues to be a problem we will ask for interventional radiology to change out the PEG tube to a PEJ tube. We will attempt to start tube feedings tomorrow. Nursing reported a possible aspiration event today. Neurologically patient is deconditioned at baseline. She has chronic contractures of the extremities (left upper and left lower). Given her already premorbid deconditioned state she is at risk for critical care deconditioning and inability to wean from the ventilator. The family would not want tracheostomy and would not want prolonged mechanical ventilation. Overall plans for today: Wean the milrinone, await cultures and sensitivities, reduce sedation, follow labs including mixed venous gas off milrinone.
[2019-06-26 21:37] LABS: ARTERIAL BLOOD BASE EXCESS 5.8 mmol/L; ARTERIAL BLOOD FIO2 30%; ARTERIAL BLOOD H2CO3 1.01 mmol/L (1.05-1.35); ARTERIAL BLOOD HCO3 28.1 mmol/L (20-24); ARTERIAL BLOOD O2 SATURATION 94.3 % (94-98); ARTERIAL BLOOD PCO2 33.5 mmHg (35-45); ARTERIAL BLOOD PH 7.54 (7.35-7.45); ARTERIAL BLOOD PO2 61.7 mmHg (80-100); ARTERIAL BLOOD TOTAL CO2 29.2 mmol/L (21-25)
[2019-06-26 21:49] LABS: ARTERIAL BLOOD BASE EXCESS 6.4 mmol/L; ARTERIAL BLOOD FIO2 30%; ARTERIAL BLOOD H2CO3 1.19 mmol/L (1.05-1.35); ARTERIAL BLOOD O2 SATURATION 66.7 % (94-98); ARTERIAL BLOOD PCO2 39.4 mmHg (35-45); ARTERIAL BLOOD TOTAL CO2 31.2 mmol/L (21-25)
[2019-06-26 21:58] LABS: ARTERIAL BLOOD PO2 31.7 mmHg (80-100)
[2019-06-27 01:09] LABS: ARTERIAL BLOOD BASE EXCESS 2.8 mmol/L; ARTERIAL BLOOD H2CO3 0.83 mmol/L (1.05-1.35); ARTERIAL BLOOD HCO3 24.4 mmol/L (20-24); ARTERIAL BLOOD O2 SATURATION 97.2 % (94-98); ARTERIAL BLOOD PCO2 27.6 mmHg (35-45); ARTERIAL BLOOD PH 7.56 (7.35-7.45); ARTERIAL BLOOD PO2 78.9 mmHg (80-100); ARTERIAL BLOOD TOTAL CO2 25.2 mmol/L (21-25)
[2019-06-27 01:16] LABS: ARTERIAL BLOOD FIO2 30%
[2019-06-27 01:23] LABS: ARTERIAL BLOOD BASE EXCESS 5.8 mmol/L; ARTERIAL BLOOD FIO2 30%; ARTERIAL BLOOD H2CO3 1.17 mmol/L (1.05-1.35); ARTERIAL BLOOD HCO3 29.4 mmol/L (20-24); ARTERIAL BLOOD O2 SATURATION 76.2 % (94-98); ARTERIAL BLOOD TOTAL CO2 30.6 mmol/L (21-25)
[2019-06-27 01:25] LABS: ARTERIAL BLOOD PO2 37.4 mmHg (80-100)
[2019-06-27] MEDS: HEPARIN SODIUM,PORCINE/D5W 25,000 UNIT/250 ML RTUINJ IV PRN (03:26)
[2019-06-27] MEDS: PROPOFOL 1,000 MG/100 ML INFUS..BTL IV PRN (03:29)
[2019-06-27 04:07] LABS: HEMATOCRIT 32.9 % (36.0-47.0); HEMOGLOBIN 11.1 g/dL (12.0-15.5); MEAN CORPUSCULAR HEMOGLOBIN 30.5 pg (27.0-33.4); MEAN CORPUSCULAR HGB CONC 33.7 g/dL (32.0-36.0); MEAN CORPUSCULAR VOLUME 90 fl (80-97); RED BLOOD COUNT 3.64 10^6/uL (3.72-5.28); RED CELL DISTRIBUTION WIDTH 13.5 % (11.5-14.0); WHITE BLOOD COUNT 7.9 10^3/uL (4.0-10.5)
[2019-06-27 04:12] LABS: INTERNATIONAL RATION (INR) 1.37
[2019-06-27 04:14] LABS: PARTIAL THROMBOPLASTIN TIME 76.7 SEC (23.5-35.8)
[2019-06-27 04:29] LABS: PLATELET COUNT 93 10^3/uL (150-450)
[2019-06-27 04:32] LABS: ABSOLUTE LYMPHOCYTES# (MANUAL) 1.3 10^3/uL (0.5-4.7); ABSOLUTE MONOCYTES # (MANUAL) 0.2 10^3/uL (0.1-1.4); BAND NEUTROPHILS % (MANUAL) 5 % (3-5); BASOPHILS % (MANUAL) 0 % (0-2); EOSINOPHILS % (MANUAL) 0 % (0-6); HYPOCHROMASIA 2+; LYMPHOCYTES % (MANUAL) 17 % (13-45); MONOCYTES % (MANUAL) 2 % (3-13); PLATELET COMMENT DECREASED; SEGMENTED NEUTROPHILS % (MAN) 76 % (42-78); TOTAL CELLS COUNTED 100; TOXIC VACUOLATION PRESENT
[2019-06-27 05:01] LABS: ALBUMIN 2.4 g/dL (3.5-5.0); ALKALINE PHOSPHATASE 77 U/L (38-126); ANION GAP 9 (5-19); ASPARTATE AMINO TRANSFERASE 32 U/L (14-36); BILIRUBIN,DIRECT 0.3 mg/dL (0.0-0.4); BILIRUBIN,TOTAL 0.7 mg/dL (0.2-1.3); BLOOD UREA NITROGEN 70 mg/dL (7-20); CALCIUM 8.7 mg/dL (8.4-10.2); CARBON DIOXIDE 29 mmol/L (22-30); CHLORIDE 105 mmol/L (98-107); GLUCOSE 155 mg/dL (75-110); PHOSPHORUS 2.8 mg/dL (2.5-4.5); POTASSIUM 3.6 mmol/L (3.6-5.0); TOTAL PROTEIN 5.1 g/dL (6.3-8.2)
[2019-06-27] MEDS: MEROPENEM 1 GM in NORMAL SALINE 50 ML IV SCH ×3 (05:23→21:17)
[2019-06-27 05:28] LABS: ARTERIAL BLOOD BASE EXCESS 4.2 mmol/L; ARTERIAL BLOOD FIO2 30%; ARTERIAL BLOOD H2CO3 0.92 mmol/L (1.05-1.35); ARTERIAL BLOOD HCO3 26.1 mmol/L (20-24); ARTERIAL BLOOD O2 SATURATION 95.4 % (94-98); ARTERIAL BLOOD PCO2 30.6 mmHg (35-45); ARTERIAL BLOOD PH 7.55 (7.35-7.45); ARTERIAL BLOOD PO2 66.3 mmHg (80-100); ARTERIAL BLOOD TOTAL CO2 27.1 mmol/L (21-25)
[2019-06-27 05:30] LABS: ARTERIAL BLOOD BASE EXCESS 6.6 mmol/L; ARTERIAL BLOOD H2CO3 1.17 mmol/L (1.05-1.35); ARTERIAL BLOOD HCO3 30.1 mmol/L (20-24); ARTERIAL BLOOD PH 7.51 (7.35-7.45); ARTERIAL BLOOD TOTAL CO2 31.3 mmol/L (21-25)
[2019-06-27 05:31] LABS: ARTERIAL BLOOD FIO2 30%; ARTERIAL BLOOD O2 SATURATION 67.6 % (94-98)
[2019-06-27 05:41] LABS: APPEARANCE,URINE TURBID; BILIRUBIN,URINE NEGATIVE (NEGATIVE); COLOR,URINE AMBER; GLUCOSE, URINE NEGATIVE (NEGATIVE); KETONES,URINE TRACE mg/dL (NEGATIVE); LEUKOCYTE ESTERASE,URINE SMALL (NEGATIVE); NITRITE,URINE NEGATIVE (NEGATIVE); PROTEIN,URINE NEGATIVE (NEGATIVE); URINE SPECIFIC GRAVITY 1.025; UROBILINOGEN,URINE NEGATIVE mg/dL (<2.0)
[2019-06-27 07:49] LABS: ARTERIAL BLOOD BASE EXCESS 7.2 mmol/L; ARTERIAL BLOOD H2CO3 0.89 mmol/L (1.05-1.35); ARTERIAL BLOOD HCO3 28.4 mmol/L (20-24); ARTERIAL BLOOD O2 SATURATION 96.9 % (94-98); ARTERIAL BLOOD PCO2 29.5 mmHg (35-45); ARTERIAL BLOOD PO2 73.4 mmHg (80-100); ARTERIAL BLOOD TOTAL CO2 29.3 mmol/L (21-25)
[2019-06-27 07:53] LABS: ARTERIAL BLOOD FIO2 30%
[2019-06-27] MEDS ORDERED: HEPARIN SOD (PORCINE) 1,000 UNIT/ML 10 ML VIAL IV PRN (08:30)
[2019-06-27] MEDS: ACETAZOLAMIDE SODIUM INJ 500 MG VIAL IV SCH ×3 (09:26→21:18)
[2019-06-27] MEDS: FAMOTIDINE 20 MG TABLET PO SCH ×2 (09:27→21:19)
[2019-06-27] MEDS ORDERED: METOPROLOL TARTRATE PF/INJ 5 MG/5 ML SDV IV ONE (11:30)
[2019-06-27] MEDS: METOPROLOL TARTRATE 25 MG TABLET PO SCH ×2 (11:39→21:19)
[2019-06-27] MEDS ORDERED: FENTANYL CITRATE INJ/PF 100 MCG/2 ML AMPUL IV ONE (13:00)
[2019-06-27 13:15] LABS: ARTERIAL BLOOD BASE EXCESS 4.8 mmol/L; ARTERIAL BLOOD FIO2 28%; ARTERIAL BLOOD H2CO3 1.09 mmol/L (1.05-1.35); ARTERIAL BLOOD HCO3 27.9 mmol/L (20-24); ARTERIAL BLOOD O2 SATURATION 95.4 % (94-98); ARTERIAL BLOOD PCO2 36.2 mmHg (35-45); ARTERIAL BLOOD PH 7.51 (7.35-7.45); ARTERIAL BLOOD PO2 69.6 mmHg (80-100)
--- NOTE | 2019-06-27 15:04 | RADIOLOGY REPORT (SQ) ---
EXAM DESCRIPTION: CHEST SINGLE VIEW COMPLETED DATE/TIME: 06/27/2019 2:55 pm REASON FOR STUDY: Pneumonitis COMPARISON: 06/26/2019 EXAM PARAMETERS: NUMBER OF VIEWS: One view. TECHNIQUE: Single frontal radiographic view of the chest acquired. RADIATION DOSE: NA LIMITATIONS: None. FINDINGS: LUNGS AND PLEURA: Improve but residual patchy airspace disease within the left lower lobe and mid lung. No new consolidation. No pleural effusion or pneumothorax. MEDIASTINUM AND HILAR STRUCTURES: No masses. Contour normal. HEART AND VASCULAR STRUCTURES: Heart normal in size. Normal vasculature. BONES: No acute findings. HARDWARE: Endotracheal tube tip overlies midthoracic trachea. Enteric tube tip below diaphragm but e xcluded by collimation. Right internal jugular central venous catheter tip over SVC OTHER: No other significant finding. IMPRESSION: Mildly improved but persistent patchy left mid and lower lobe airspace disease. Stable lines and tubes as above. TECHNICAL DOCUMENTATION: JOB ID: [id number] [email or web address] All Rights Reserved Reading location - IP/workstation name: [email or web address]
--- NOTE | 2019-06-27 17:29 | PDOC PROGRESS REPORT ---
Subjective Progress Note for:: 06/27/19 - Critical Care Day 2 Subjective:: 06.27.19: Patient has continued to improve from a hemodynamic point and is off all vasopressor and inotropic therapy. She is now dealing with higher blood pressures with ranges noted in the 180 systolic range at one point. She appeared to improve with fentanyl. Neurologically she is more responsive and starting to spontaneously move her right side. Notably our micro lab called to notify us that she has E. coli in her blood and urine cultures and Enterobacter species in her sputum. Most are pansensitive. Repeat critical care bedside ech o shows slight improvement in ejection fraction and mixed venous gas results have remained stable. 06.26.19: Patient admitted for septic shock. Echocardiogram obtained because the base line critical care ultrasound screen showed reduction in EF. Official formal echocardiogram showed an EF about 15 to 20%. Patient was started on Levophed and milrinone. Patient has improved significantly in the last 12 hours. She is clearing her lactic acid and she does not have a significant acidosis. We had some difficulty in obtaining mixed venous gases however this morning's mixed venous gases are acceptable. She does have some low urine output which has improved. Her creatinine has improved as well. Sedation is being weaned and FiO2 is now down to 30%. PEEP has been reduced. Of significance are gram negatives growing in blood sputum and urine. Notably the echocardiogram also showed a possible thrombus in the left ventricle and she was started on heparin. Reason For Visit: SEPSIS with shock as well as cardiogenic shock Physical Exam Vital Signs: Temp Pulse Resp BP Pulse Ox 99.7 F 61 17 166/65 H 98 06/27/19 16:00 06/27/19 16:00 06/27/19 16:00 06/27/19 16:00 06/27/19 16:33 Intake & Output 06/26/19 06/27/19 06/28/19 06:59 06:59 06:59 Intake Total 2617 865 185 Output Total 955 565 640 Balance 1662 300 -455 Weight 58.5 kg 56.2 kg Physical Exam: Intubated chronically and critically ill appearing no acute distress. General appearance: PRESENT: no acute distress, thin Head exam: PRESENT: atraumatic, normocephalic Eye exam: PRESENT: conjunctiva pink. ABSENT: conjunctival injection, nystagmus, scleral icterus Mouth exam: PRESENT: moist, neck supple Teeth exam: PRESENT: poor dentation Neck exam: ABSENT: carotid bruit, JVD, lymphadenopathy, meningismus, thyromegaly, tracheal deviation Additional comments: Right IJ central venous catheter clean dry and intact no erythema or hematoma Respiratory exam: PRESENT: crackles - Improved crackles and rhonchi, rhonchi. ABSENT: accessory muscle use, tachypnea, unlabored, wheezes Cardiovascular exam: PRESENT: +S1, +S2 Additional comments: Noted tachycardia at times in atrial fibrillation on monitor and EKG Pulses: PRESENT: normal carotid pulses. ABSENT: normal dorsalis pedis pul Vascular exam: PRESENT: normal capillary refill GI/Abdominal exam: PRESENT: hypoactive bowel sounds, soft. ABSENT: ascites, distended, mass, Greene's sign, rebound, rigid, tenderness Additonal comments: PEG tube site is clean dry and intact with superficial erosion which appears to be chronic no erythema Rectal exam: PRESENT: deferred Gentrourinary exam: PRESENT: indwelling catheter Extremities exam: PRESENT: pedal edema - Mild Additional comments: Patient has chronic contracture of left lower extremity with ABduction and flexion at the knee. Upper extremity is held in flexion contracture of the elbo w and flexion contracture of the wrist Neurological exam: PRESENT: altered Additional comments: At baseline patient has poor neurological status. She does move arm to noxious stimulus. Walker Coma Scale is 31T4 with abnormal response to noxious stimulus on the right arm. Her chronically contracted left arm resists flexion. She does open her eyes to voice. Psychiatric exam: PRESENT: unusual affect Focused psych exam: PRESENT: catatonic Skin exam: PRESENT: intact. ABSENT: cyanosis, erythema, jaundice, mottled, urticaria, vesicles Results Laboratory Results: 06/27/19 03:55 06/27/19 03:55 06/26/19 06/26/19 06/26/19 16:37 16:37 16:40 WBC RBC Hgb Hct MCV MCH MCHC RDW Plt Count Seg Neutrophils % Carbonic Acid HCO3/H2CO3 Ratio ABG pH ABG pCO2 ABG pO2 ABG HCO3 ABG O2 Saturation ABG Base Excess VBG pH Cancelled VBG pCO2 Cancelled VBG HCO3 Cancelled VBG Base Excess Cancelled FiO2 Sodium 140.1 Potassium 3.6 Chloride 103 Carbon Dioxide 30 Anion Gap 7 BUN 68 H Creatinine 1.15 Est GFR ( Amer) 57 L Glucose 170 H Lactic Acid 1.4 Calcium 8.8 Phosphorus 2.5 Magnesium 2.1 Total Bilirubin AST Alkaline Phosphatase Ammonia Total Protein Albumin Urine Color Urine Appearance Urine pH Ur Specific Gordon Urine Protein Urine Glucose (UA) Urine Ketones Urine Blood Urine Nitrite Ur Leukocyte Esterase Urine WBC (Auto) Urine RBC (Auto) 06/26/19 06/26/19 06/26/19 16:40 16:40 21:15 WBC RBC Hgb Hct MCV MCH MCHC RDW Plt Count Seg Neutrophils % Carbonic Acid 1.08 1.00 L 1.01 L HCO3/H2CO3 Ratio 25:1 27:1 27:1 ABG pH 7.51 H 7.53 H 7.54 H ABG pCO2 35.9 33.1 L 33.5 L ABG pO2 37.0 L* 63.5 L 61.7 L ABG HCO3 27.7 H 27.3 H 28.1 H ABG O2 Saturation 76.4 L 94.6 94.3 ABG Base Excess 4.6 4.9 5.8 VBG pH VBG pCO2 VBG HCO3 VBG Base Excess FiO2 30% 30% 30% Sodium Potassium Chloride Carbon Dioxide Anion Gap BUN Creatinine Est GFR ( Amer) Glucose Lactic Acid Calcium Phosphorus Magnesium Total Bilirubin AST Alkaline Phosphatase Ammonia Total Protein Albumin Urine Color Urine Appearance Urine pH Ur Specific Gordon Urine Protein Urine Glucose (UA) Urine Ketones Urine Blood Urine Nitrite Ur Leukocyte Esterase Urine WBC (Auto) Urine RBC (Auto) 06/26/19 06/27/19 06/27/19 21:15 00:40 00:40 WBC RBC Hgb Hct MCV MCH MCHC RDW Plt Count Seg Neutrophils % Carbonic Acid 1.19 0.83 L 1.17 HCO3/H2CO3 Ratio 25:1 29:1 25:1 ABG pH 7.50 H 7.56 H 7.50 H ABG pCO2 39.4 27.6 L 39.0 ABG pO2 31.7 L* 78.9 L 37.4 L* ABG HCO3 30.0 H 24.4 H 29.4 H ABG O2 Saturation 66.7 L 97.2 76.2 L ABG Base Excess 6.4 2.8 5.8 VBG pH VBG pCO2 VBG HCO3 VBG Base Excess FiO2 30% 30% 30% Sodium Potassium Chloride Carbon Dioxide Anion Gap BUN Creatinine Est GFR ( Amer) Glucose Lactic Acid Calcium Phosphorus Magnesium Total Bilirubin AST Alkaline Phosphatase Ammonia Total Protein Albumin Urine Color Urine Appearance Urine pH Ur Specific Gordon Urine Protein Urine Glucose (UA) Urine Ketones Urine Blood Urine Nitrite Ur Leukocyte Esterase Urine WBC (Auto) Urine RBC (Auto) 06/27/19 06/27/19 06/27/19 03:55 03:55 04:34 WBC 7.9 RBC 3.64 L Hgb 11.1 L Hct 32.9 L MCV 90 MCH 30.5 MCHC 33.7 RDW 13.5 Plt Count 93 L Seg Neutrophils % Not Reportable Carbonic Acid HCO3/H2CO3 Ratio ABG pH ABG pCO2 ABG pO2 ABG HCO3 ABG O2 Saturation ABG Base Excess VBG pH VBG pCO2 VBG HCO3 VBG Base Excess FiO2 Sodium 143.3 Potassium 3.6 Chloride 105 Carbon Dioxide 29 Anion Gap 9 BUN 70 H Creatinine 1.11 Est GFR ( Amer) > 60 Glucose 155 H Lactic Acid Calcium 8.7 Phosphorus 2.8 Magnesium 2.3 Total Bilirubin 0.7 AST 32 Alkaline Phosphatase 77 Ammonia Total Protein 5.1 L Albumin 2.4 L Urine Color KENDALL Urine Appearance TURBID Urine pH 5.0 Ur Specific Gordon 1.025 Urine Protein NEGATIVE Urine Glucose (UA) NEGATIVE Urine Ketones TRACE H Urine Blood NEGATIVE Urine Nitrite NEGATIVE Ur Leukocyte Esterase SMALL H Urine WBC (Auto) 4 Urine RBC (Auto) 1 06/27/19 06/27/19 06/27/19 04:34 04:34 07:33 WBC RBC Hgb Hct MCV MCH MCHC RDW Plt Count Seg Neutrophils % Carbonic Acid 0.92 L 1.17 HCO3/H2CO3 Ratio 28:1 25:1 ABG pH 7.55 H 7.51 H ABG pCO2 30.6 L 39.0 ABG pO2 66.3 L 32.0 L* ABG HCO3 26.1 H 30.1 H ABG O2 Saturation 95.4 67.6 L ABG Base Excess 4.2 6.6 VBG pH VBG pCO2 VBG HCO3 VBG Base Excess FiO2 30% 30% Sodium Potassium Chloride Carbon Dioxide Anion Gap BUN Creatinine Est GFR ( Amer) Glucose Lactic Acid Calcium Phosphorus Magnesium Total Bilirubin AST Alkaline Phosphatase Ammonia < 8.7 L Total Protein Albumin Urine Color Urine Appearance Urine pH Ur Specific Gordon Urine Protein Urine Glucose (UA) Urine Ketones Urine Blood Urine Nitrite Ur Leukocyte Esterase Urine WBC (Auto) Urine RBC (Auto) 06/27/19 06/27/19 07:33 12:55 WBC RBC Hgb Hct MCV MCH MCHC RDW Plt Count Seg Neutrophils % Carbonic Acid 0.89 L 1.09 HCO3/H2CO3 Ratio 31:1 25:1 ABG pH 7.60 H* 7.51 H ABG pCO2 29.5 L 36.2 ABG pO2 73.4 L 69.6 L ABG HCO3 28.4 H 27.9 H ABG O2 Saturation 96.9 95.4 ABG Base Excess 7.2 4.8 VBG pH VBG pCO2 VBG HCO3 VBG Base Excess FiO2 30% 28% Sodium Potassium Chloride Carbon Dioxide Anion Gap BUN Creatinine Est GFR ( Amer) Glucose Lactic Acid Calcium Phosphorus Magnesium Total Bilirubin AST Alkaline Phosphatase Ammonia Total Protein Albumin Urine Color Urine Appearance Urine pH Ur Specific Gordon Urine Protein Urine Glucose (UA) Urine Ketones Urine Blood Urine Nitrite Ur Leukocyte Esterase Urine WBC (Auto) Urine RBC (Auto) 06/25/19 20:10 Sputum Gram Stain - Final 06/25/19 20:10 Sputum Sputum Culture - Final Enterobacter Cloacae Normal Sweta 06/25/19 11:50 Blood Blood Culture - Final Escherichia Coli 06/25/19 14:46 Catheterized Urine Urine Culture - Final Escherichia Coli 06/25/19 14:27 Blood Blood Culture - Final Escherichia Coli 06/25/19 06/25/19 06/25/19 11:50 11:50 19:10 Creatine Kinase 30 CK-MB (CK-2) 0.70 Troponin I 0.066 0.070 06/26/19 06/26/19 06/26/19 03:24 08:12 08:12 Creatine Kinase 59 CK-MB (CK-2) 1.83 Troponin I 0.052 0.047 EKG Comments: Slightly improved. Qtc at 535. Impressions: Head CT 06/25/19 11:45 IMPRESSION: MICROVASCULAR ISCHEMIA AND GENERALIZED ATROPHY. 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 NO ACUTE IMAGING FINDINGS IN THE BRAIN. EVIDENCE OF ACUTE STROKE: NO. KUB X-Ray 06/26/19 00:00 IMPRESSION: The gastrostomy tube is positioned in the stomach and is patent. Chest X-Ray 06/27/19 14:45 IMPRESSION: Mildly improved but persistent patchy left mid and lower lobe airspace disease. Stable lines and tubes as above. Status: Image reviewed by me Assessment & Plan - Diagnosis (1) Sepsis due to Gram negative bacteria Is this a current diagnosis for this admission?: Yes Plan: Improved. Continue antibiotics. Add Vitamin C, Thiamine. No steroids given cortisol elevation (2) Cardiogenic shock Is this a current diagnosis for this admission?: Yes Plan: Improved. Start BBlocker and ACEI. Has atrial enlargement on echo. At risk for Atrial fibrillation. Has Atrial fibrillation on ECG (3) ARDS (adult respiratory distress syndrome) Is this a current diagnosis for this admission?: Yes Plan: Much improved. Begin ventilator wean (4) Aspiration pneumonia Qualifiers: Aspiration pneumonia type: due to vomit Laterality: bilateral Lung location: unspecified part of lung Qualified Code(s): J69.0 - Pneumonitis due to inhalation of food and vomit Is this a current diagnosis for this admission?: Yes Plan: Improved. Continue care for aspiration pneumonia (5) Lactic acid acidosis Is this a current diagnosis for this admission?: Yes Plan: Resolved. Follow supportively (6) Sepsis due to Gram-negative organism with septic shock Is this a current diagnosis for this admission?: Yes Plan: Continue meropenem (7) Hypotension arterial Qualifiers: Hypotension type: other hypotension type Qualified Code(s): I95.89 - Other hypotension Is this a current diagnosis for this admission?: Yes (8) Left ventricular thrombus Is this a current diagnosis for this admission?: Yes (9) Aspiration pneumonia Qualifiers: Aspiration pneumonia type: due to regurgitated food Laterality: bilateral Lung location: unspecified part of lung Qualified Code(s): J69.0 - Pneumonitis due to inhalation of food and vomit Is this a current diagnosis for this admission?: Yes (10) E coli bacteremia Is this a current diagnosis for this admission?: Yes Plan: Follow course. IDSA guidelines do not recommend repeat culture (11) Enterobacter cloacae pneumonia Is this a current diagnosis for this admission?: Yes Plan: Ortiz sensitive, however, IDSA does not recommend Third generation cephalosporins secondary to AmpC antigenicity/resistance. Continue Meropenem (12) Escherichia coli urinary tract infection Is this a current diagnosis for this admission?: Yes Plan: Patient does not have chronic indwelling dejesus. Follow supportively (13) Complicated UTI (urinary tract infection) Is this a current diagnosis for this admission?: Yes (14) Diabetes Qualifiers: Diabetes mellitus type: type 2 Diabetes mellitus rn long term care insulin use: without prison use Diabetes mellitus complication status: with other specified complication Qualified Code(s): E11.69 - Type 2 diabetes mellitus with other specified complication Is this a current diagnosis for this admission?: Yes Plan: Follow blood sugars and treat supportively (15) Atrial fibrillation with controlled ventricular rate Is this a current diagnosis for this admission?: Yes Plan: Beta-ximena, control pain. Patient to be started on methyphenidate for hypo- active delirium. No evidence to support worsening Atrial fibrillation. - Time Time Spent with patient: 35 or more minutes Total Critical Time (Minutes): 65 Medications reviewed and adjusted accordingly: Yes Anticipated discharge: SNF Disposition: To remain in ICU - Inpatient Certification Based on my medical assessment, after consideration of the patient's comorbidities, presenting symptoms, or acuity I expect that the services needed warrant INPATIENT care.: Yes I certify that my determination is in accordance with my understanding of Medicare's requirements for reasonable and necessary INPATIENT services [42 CFR 412.3e].: Yes Medical Necessity: Need Close Monitoring Due to Risk of Patient Decompensation, Need For IV Fluids, Need For Continuous Telemetry Monitoring, Need for Neurological Checks, Need for IV Antibiotics, Risk of Complication if Not Cared For in Hospital Post Hospital Care: D/C Tools Administrator Documentation - Plan Summary Plan Summary: Patient continues to have improvement. Patient has improved to the point that we will start an SBT. Her neurological s tatus is suppressed enough that I do not feel she is safe for liberation however we will start the process of diaphragmatic muscle mobilization. Patient has significant hypertension which is of dramatic significance given her severe hypotension on admission. She still has reduced ejection fraction. At this point we will start beta-ximena and ELBA inhibitor. Her creatinine function has improved significantly as well. She does have atrial fibrillation which appears to be persistent with a controlled rate. She is on heparin for ventricular thrombus and will continue this in addition for atrial fibrillation. From a neurological standpoint patient has a baseline neurological deficit and is bedridden for 5 to 7 years. She appears to have diminished cognition which was made worsened by her infection. She does have metabolic encephalopathy secondary to toxic results from her sepsis. To that and she appears to have hypoactive delirium. Based on numerous case studies and anecdotal evidence patients such as this responded to Ritalin. We will attempt this in an attempt to determine whether we can improve her neurological status. I had a lengthy talk with her and her son Oliver who are her medical power of rn internal medicine's. They do not want prolonged ventilator care and should she not be able to be weaned they would advocate based on the patient's wishes for comfort care and w ithdrawal of ventilator support. The care of a critically ill patient is dynamic. This note represents a static time-frame in the admission process. Orders and treatments may be given simulta neously and urgently, and time is not billing representative of the treatment process. This patient requires Critical Care secondary to life-threatening organ or limb dysfunction. Without the need for Critical Care services, the patient is at risk for increased mortality and morbidity. MPOA: Son: Oliver, : Jose
--- NOTE | 2019-06-27 17:40 | EKG REPORT ---
SEVERITY:- ABNORMAL ECG - ATRIAL FIBRILLATION NONSPECIFIC INTRAVENTRICULAR CONDUCTION DELAY ABNRM R PROG, CONSIDER ASMI OR LEAD PLACEMENT BORDERLINE ST DEPRESSION, INFERIOR LEADS : Confirmed by: Tone Scherer MD 27-Jun-2019 17:40:01
[2019-06-27] MEDS: LISINOPRIL 5 MG TABLET PO SCH (21:19)
[2019-06-28] MEDS: ACETAZOLAMIDE SODIUM INJ 500 MG VIAL IV SCH (02:24)
[2019-06-28] MEDS: MEROPENEM 1 GM in NORMAL SALINE 50 ML IV SCH ×3 (05:45→21:38)
[2019-06-28 06:18] LABS: ABSOLUTE LYMPHOCYTES (AUTO) 0.6 10^3/uL (0.5-4.7); ABSOLUTE MONOCYTES (AUTO) 0.7 10^3/uL (0.1-1.4); ABSOLUTE NEUT (AUTO) 6.6 10^3/uL (1.7-8.2); BASOPHILS % (AUTO) 0.3 % (0-2); EOSINOPHILS % (AUTO) 0.2 % (0-6); HEMATOCRIT 34.5 % (36.0-47.0); HEMOGLOBIN 11.2 g/dL (12.0-15.5); MEAN CORPUSCULAR HEMOGLOBIN 29.9 pg (27.0-33.4); MEAN CORPUSCULAR HGB CONC 32.5 g/dL (32.0-36.0); MEAN CORPUSCULAR VOLUME 92 fl (80-97); RED BLOOD COUNT 3.75 10^6/uL (3.72-5.28); RED CELL DISTRIBUTION WIDTH 13.9 % (11.5-14.0); SEGMENTED NEUTROPHILS % (AUTO) 83.5 % (42-78); TOTAL CELLS COUNTED % (AUTO) 100 %; WHITE BLOOD COUNT 7.9 10^3/uL (4.0-10.5)
[2019-06-28 06:34] LABS: PHOSPHORUS 3.1 mg/dL (2.5-4.5)
[2019-06-28 06:47] LABS: PLATELET COUNT 98 10^3/uL (150-450)
[2019-06-28] MEDS: HEPARIN SODIUM,PORCINE/D5W 25,000 UNIT/250 ML RTUINJ IV PRN (07:25)
--- NOTE | 2019-06-28 08:20 | RADIOLOGY REPORT (SQ) ---
EXAM DESCRIPTION: CHEST SINGLE VIEW COMPLETED DATE/TIME: 06/28/2019 6:38 am REASON FOR STUDY: pneumonia COMPARISON: Chest films 06/25/2019, 06/26/2019, 06/27/2019 EXAM PARAMETERS: NUMBER OF VIEWS: One view. TECHNIQUE: Single frontal radiographic view of the chest acquired. RADIATION DOSE: NA LIMITATIONS: Patient rotated toward [place] orientation FINDINGS: LUNGS AND PLEURA: Persistent left retrocardiac consolidation worrisome for pneumonia. Remainder of the lungs are well inflated and grossly clear. No pleural effusion or pneumothorax. MEDIASTINUM AND HILAR STRUCTURES: No masses. Contour normal. HEART AND VASCULAR STRUCTURES: No gross cardiomegaly. BONES: No acute findings. HARDWARE: Endotracheal tube tip 5 cm above the lara. Right jugular line tip superior vena cava. N asogastric tube tip and side port in the stomach OTHER: No other significant finding. IMPRESSION: Persistent left retrocardiac consolidation Tubes and lines in good positioning. TECHNICAL DOCUMENTATION: JOB ID: [id number] [employer]- All Rights Reserved Reading location - IP/workstation name: [email or web address]
[2019-06-28] MEDS: METOPROLOL TARTRATE 25 MG TABLET PO SCH ×2 (08:30→21:38)
[2019-06-28] MEDS: LISINOPRIL 5 MG TABLET PO SCH ×2 (08:30→21:39)
[2019-06-28] MEDS ORDERED: HYDRALAZINE HCL INJ/PF 20 MG/1 ML SDV ONE (11:52)
[2019-06-28] MEDS: FAMOTIDINE 20 MG TABLET PO SCH ×2 (12:00→21:39)
[2019-06-28] MEDS ORDERED: HYDRALAZINE HCL INJ/PF 20 MG/1 ML SDV IV ONE (12:00)
[2019-06-28] MEDS: METHYLPHENIDATE HCL 5 MG TABLET PO SCH ×2 (12:02)
[2019-06-28] MEDS ORDERED: HYDROMORPHONE HCL INJ/PF 2 MG/ML AMPULE IV PRN (13:22)
--- NOTE | 2019-06-28 17:31 | PDOC PROGRESS REPORT ---
Subjective Progress Note for:: 06/28/19 Subjective:: 06.28.19: Patient continues to be off all vasopressor therapy. She has actually had extreme elevations in her blood pressure some of which respond to narcotic pain medication and antihypertensive regimens. She was started on her beta- ximena yesterday as well as ELBA inhibitor. Labs are pending at time of this dictation. He has chronic soft stools and this has developed with the initiation of tube feeds. She still remains comatose off sedation. She has limited response to noxious stimuli. She was placed on SBT during rounds this morning. White Count has improved. No bleeding events on heparin. 06.27.19: Patient has continued to improve from a hemodynamic point and is off all vasopressor and inotropic therapy. She is now dealing with higher blood pressures with ranges noted in the 180 systolic range at one point. She appea red to improve with fentanyl. Neurologically she is more responsive and starting to spontaneously move her right side. Notably our micro lab called to notify us that she has E. coli in her blood and urine cultures and Enterobacter species in her sputum. Most are pansensitive. Repeat critical care bedside echo shows slight improvement in ejection fraction and mixed venous gas results have remained stable. 06.26.19: Patient admitted for septic shock. Echocardiogram obtained because the base line critical care ultrasound screen showed reduction in EF. Official form al echocardiogram showed an EF about 15 to 20%. Patient was started on Levophed and milrinone. Patient has improved significantly in the last 12 hours. She is clearing her lactic acid and she does not have a significant acidosis. We had some difficulty in obtaining mixed venous gases however this morning's mixed venous gases are acceptable. She does have some low urine output which has improved. Her creatinine has improved as well. Sedation is being weaned and FiO2 is now down to 30%. PEEP has been reduced. Of significance are gram negatives growing in blood sputum and urine. Notably the echocardiogram also showed a possible thrombus in the left ventricle and she was started on heparin. Reason For Visit: SEPSIS Physical Exam Vital Signs: Temp Pulse Resp BP Pulse Ox 99.9 F 57 L 19 150/65 H 97 06/28/19 04:00 06/28/19 10:00 06/28/19 16:00 06/28/19 14:59 06/28/19 16:44 Intake & Output 06/27/19 06/28/19 06/29/19 06:59 06:59 06:59 Intake Total 865 285 269 Output Total 565 1205 1155 Balance 300 -080 -886 Weight 56.2 kg 56.4 kg Physical Exam: Intubated minimally responsive 64-year-old female no active distress. Responds to noxious stimulus only not on sedation. General appearance: PRESENT: no acute distress, well-developed, well-nourished Head exam: PRESENT: atraumatic, normocephalic Eye exam: PRESENT: conjunctiva pink, PERRLA. ABSENT: conjunctival injection, conjunctiva pale, nystagmus, scleral icterus Mouth exam: PRESENT: dry mucosa, neck supple Neck exam: ABSENT: carotid bruit, JVD, lymphadenopathy, meningismus, tenderness, thyromegaly, tracheal deviation Respiratory exam: ABSENT: accessory muscle use, clear to auscultation tova, unlabored Cardiovascular exam: PRESENT: RRR, +S1, +S2 Vascular exam: PRESENT: normal capillary refill GI/Abdominal exam: PRESENT: soft. ABSENT: ascites, distended, firm, guarding, mass, Greene's sign, normal bowel sounds, rebound, rigid, tenderness Gentrourinary exam: PRESENT: indwelling catheter Additional comments: Left leg and and left upper extremity in chronic contracture state (this is at baseline and present prior to admission Neurological exam: PRESENT: altered Skin exam: PRESENT: normal color. ABSENT: cyanosis, erythema, intact, jaundice, mottled, petechiae, urticaria, vesicles Results Laboratory Results: 06/28/19 05:55 06/27/19 03:55 06/28/19 06/28/19 06/28/19 05:55 05:55 05:55 WBC 7.9 RBC 3.75 Hgb 11.2 L Hct 34.5 L MCV 92 MCH 29.9 MCHC 32.5 RDW 13.9 Plt Count 98 L Seg Neutrophils % 83.5 H Phosphorus 3.1 Magnesium 2.2 Ammonia < 8.7 L 06/25/19 20:10 Sputum Gram Stain - Final 06/25/19 20:10 Sputum Sputum Culture - Final Enterobacter Cloacae Normal Sweta 06/25/19 06/25/19 06/25/19 11:50 11:50 19:10 Creatine Kinase 30 CK-MB (CK-2) 0.70 Troponin I 0.066 0.070 06/26/19 06/26/19 06/26/19 03:24 08:12 08:12 Creatine Kinase 59 CK-MB (CK-2) 1.83 Troponin I 0.052 0.047 Impressions: Head CT 06/25/19 11:45 IMPRESSION: MICROVASCULAR ISCHEMIA AND GENERALIZED ATROPHY. 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 NO ACUTE IMAGING FINDINGS IN THE BRAIN. EVIDENCE OF ACUTE STROKE: NO. KUB X-Ray 06/26/19 00:00 IMPRESSION: The gastrostomy tube is positioned in the stomach and is patent. Chest X-Ray 06/28/19 06:00 IMPRESSION: Persistent left retrocardiac consolidation Tubes and lines in good positioning. Status: Image reviewed by me Assessment & Plan - Diagnosis (1) Sepsis due to Gram negative bacteria Is this a current diagnosis for this admission?: Yes (2) Cardiogenic shock Is this a current diagnosis for this admission?: Yes (3) ARDS (adult respiratory distress syndrome) Is this a current diagnosis for this admission?: Yes (4) Aspiration pneumonia Qualifiers: Aspiration pneumonia type: due to vomit Laterality: bilateral Lung location: unspecified part of lung Qualified Code(s): J69.0 - Pneumonitis due to inhalation of food and vomit Is this a current diagnosis for this admission?: Yes (5) Lactic acid acidosis Is this a current diagnosis for this admission?: Yes (6) Sepsis due to Gram-negative organism with septic shock Is this a current diagnosis for this admission?: Yes (7) Hypotension arterial Qualifiers: Hypotension type: other hypotension type Qualified Code(s): I95.89 - Other hypotension Is this a current diagnosis for this admission?: Yes (8) Left ventricular thrombus Is this a current diagnosis for this admission?: Yes (9) Aspiration pneumonia Qualifiers: Aspiration pneumonia type: due to regurgitated food Laterality: bilateral Lung location: unspecified part of lung Qualified Code(s): J69.0 - Pneumonitis due to inhalation of food and vomit Is this a current diagnosis for this admission?: Yes (10) E coli bacteremia Is this a current diagnosis for this admission?: Yes (11) Enterobacter cloacae pneumonia Is this a current diagnosis for this admission?: Yes (12) Escherichia coli urinary tract infection Is this a current diagnosis for this admission?: Yes (13) Complicated UTI (urinary tract infection) Is this a current diagnosis for this admission?: Yes (14) Diabetes Qualifiers: Diabetes mellitus type: type 2 Diabetes mellitus assisted insulin use: without assisted use Diabetes mellitus complication status: with other specified complication Qualified Code(s): E11.69 - Type 2 diabetes mellitus with other specified complication Is this a current diagnosis for this admission?: Yes (15) Atrial fibrillation with controlled ventricular rate Is this a current diagnosis for this admission?: Yes - Time Time Spent with patient: 35 or more minutes Total Critical Time (Minutes): 50 Medications reviewed and adjusted accordingly: Yes Anticipated discharge: Other - Potential for planned ventilator liberation in 24 hours with possible transition to comfort care. Within: within 24 hours - Inpatient Certification Based on my medical assessment, after consideration of the patient's comorbidities, presenting symptoms, or acuity I expect that the services needed warrant INPATIENT care.: Yes I certify that my determination is in accordance with my understanding of Medicare's requirements for reasonable and necessary INPATIENT services [42 CFR 412.3e].: Yes Medical Necessity: Need Close Monitoring Due to Risk of Patient Decompensation, Need For IV Fluids, Need for IV Antibiotics, Risk of Complication if Not Cared F or in Hospital Post Hospital Care: D/C [employer]er Documentation - Plan Summary Plan Summary: 06.28.19 Patient has had consistent and persistent hypertension and has been placed on beta-ximena and ELBA inhibitor therapy. Added hydralazine to her armamentarium. Patient appears to be tolerating SBT and will order blood gas for this afterno on. Despite what the findings may show as far as encouragement for improvement in her ventilatory function her neurological status is such that I am concerned that she will not tolerate liberation from the ventilator. I re-iterated this with the and the family today. We will continue to provide supportive care. Plan is for reevaluation for liberation from the ventilator. The family states that the patient does not lift her head at baseline and has decreased motor function of the right arm. 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 I am concerned that she will not survive liberation and the family is aware of this and would advocate for comfort care and no prolonged care. This would be her wish as well. 06.27.19: Patient continues to have improvement. Patient has improved to the point that we will start an SBT. Her neurological status is suppressed enough that I do not feel she is safe for liberation however we will start the process of diaphragmatic muscle mobilization. Patient has significant hypertension which is of dramatic significance given her severe hypotension on admission. She still has reduced ejection fraction. At this point we will start beta-ximena and ELBA inhibitor. Her creatinine function has improved significantly as well. She does have atrial fibrillation which appears to be persistent with a controlled rate. She is on heparin for ventricular thrombus and will continue this in addition for atrial fibrillation. From a neurological standpoint patient has a baseline neurological deficit and is bedridden for 5 to 7 years. She appears to have diminished cognition which was made worsened by her infection. She does have metabolic encephalopathy secondary to toxic results from her sepsis. To that and she appears to have hypoactive delirium. Based on numerous case studies and anecdotal evidence patients such as this responded to Ritalin. We will attempt this in an attempt to determine whether we can improve her neurological status. I had a lengthy talk with her and her son Oliver who are her medical power of setter [employer]'s. They do not want prolonged ventilator care and should she not be able to be weaned they would advocate based on the patient's wishes for comfort care and withdrawal of ventilator support. The care of a critically ill patient is dynamic. This note represents a static time-frame in the admission process. Orders and treatments may be given simultaneously and urgently, and time is not patient care representative of the treatment process. This patient requires Critical Care secondary to life-threatening organ or limb dysfunction. Without the need for Critical Care services, the patient is at risk for increased mortality and morbidity. MPOA: Son: Oliver, : Jose
[2019-06-28 17:51] LABS: ARTERIAL BLOOD BASE EXCESS -1.3 mmol/L; ARTERIAL BLOOD H2CO3 0.86 mmol/L (1.05-1.35); ARTERIAL BLOOD HCO3 21.1 mmol/L (20-24); ARTERIAL BLOOD O2 SATURATION 97.3 % (94-98); ARTERIAL BLOOD PCO2 28.6 mmHg (35-45); ARTERIAL BLOOD PH 7.49 (7.35-7.45); ARTERIAL BLOOD PO2 86.3 mmHg (80-100)
[2019-06-28 17:54] LABS: ARTERIAL BLOOD FIO2 35%
[2019-06-28 18:22] LABS: ANION GAP 9 (5-19); BLOOD UREA NITROGEN 47 mg/dL (7-20); CALCIUM 8.4 mg/dL (8.4-10.2); CARBON DIOXIDE 23 mmol/L (22-30); CHLORIDE 112 mmol/L (98-107); GLUCOSE 168 mg/dL (75-110); PHOSPHORUS 2.8 mg/dL (2.5-4.5)
[2019-06-28 18:25] LABS: POTASSIUM 2.3 mmol/L (3.6-5.0)
[2019-06-28] MEDS: POTASSIUM CHLORIDE 20 MEQ/50 ML RTU IV SCH ×2 (21:14→23:30)
[2019-06-29] MEDS: POTASSIUM CHLORIDE 20 MEQ/50 ML RTU IV SCH ×2 (01:11→03:14)
[2019-06-29] MEDS: HYDRALAZINE HCL INJ/PF 20 MG/1 ML SDV IV PRN ×2 (03:33→20:00)
[2019-06-29] MEDS: MEROPENEM 1 GM in NORMAL SALINE 50 ML IV SCH ×3 (05:36→21:41)
[2019-06-29 05:56] LABS: ABSOLUTE LYMPHOCYTES (AUTO) 0.8 10^3/uL (0.5-4.7); ABSOLUTE MONOCYTES (AUTO) 0.9 10^3/uL (0.1-1.4); ABSOLUTE NEUT (AUTO) 7.9 10^3/uL (1.7-8.2); BASOPHILS % (AUTO) 0.2 % (0-2); EOSINOPHILS % (AUTO) 0.2 % (0-6); HEMATOCRIT 34.1 % (36.0-47.0); HEMOGLOBIN 11.5 g/dL (12.0-15.5); LYMPHOCYTES % (AUTO) 7.9 % (13-45); MEAN CORPUSCULAR HEMOGLOBIN 30.7 pg (27.0-33.4); MEAN CORPUSCULAR HGB CONC 33.6 g/dL (32.0-36.0); MEAN CORPUSCULAR VOLUME 91 fl (80-97); MONOCYTES % (AUTO) 9.2 % (3-13); PLATELET COUNT 104 10^3/uL (150-450); RED BLOOD COUNT 3.74 10^6/uL (3.72-5.28); RED CELL DISTRIBUTION WIDTH 13.5 % (11.5-14.0); SEGMENTED NEUTROPHILS % (AUTO) 82.5 % (42-78); TOTAL CELLS COUNTED % (AUTO) 100 %; WHITE BLOOD COUNT 9.6 10^3/uL (4.0-10.5)
[2019-06-29 07:35] LABS: ANION GAP 6 (5-19); BLOOD UREA NITROGEN 44 mg/dL (7-20); CALCIUM 8.8 mg/dL (8.4-10.2); CARBON DIOXIDE 24 mmol/L (22-30); CHLORIDE 116 mmol/L (98-107); GLUCOSE 230 mg/dL (75-110); PHOSPHORUS 1.7 mg/dL (2.5-4.5)
[2019-06-29 07:52] LABS: POTASSIUM 3.6 mmol/L (3.6-5.0)
--- NOTE | 2019-06-29 08:23 | RADIOLOGY REPORT (SQ) ---
EXAM DESCRIPTION: CHEST SINGLE VIEW COMPLETED DATE/TIME: 06/29/2019 6:02 am REASON FOR STUDY: pneumonia COMPARISON: 06/28/2019 NUMBER OF VIEWS: One view. TECHNIQUE: Single frontal radiographic image of the chest acquired. LIMITATIONS: None. FINDINGS: LUNGS AND PLEURA: Stable appearance. MEDIASTINUM AND HILAR STRUCTURES: Stable heart size and mediastinal structures. HEART AND VASCULAR STRUCTURES: Stable appearance. SUPPORT DEVICES: Appropriate location without change. BONES: No acute findings. OTHER: No other significant finding. IMPRESSION: STABLE APPEARANCE OF THE CHEST. SUPPORT DEVICES UNCHANGED. TECHNICAL DOCUMENTATION: JOB ID: [id number] [employer]- All Rights Reserved Reading location - IP/workstation name: [email or web address]
[2019-06-29] MEDS: METHYLPHENIDATE HCL 5 MG TABLET PO SCH ×2 (08:44→11:24)
[2019-06-29] MEDS: LISINOPRIL 5 MG TABLET PO SCH (09:51)
[2019-06-29] MEDS: METOPROLOL TARTRATE 25 MG TABLET PO SCH ×2 (09:51→21:41)
[2019-06-29] MEDS: FAMOTIDINE 20 MG TABLET PO SCH (09:52)
[2019-06-29] MEDS ORDERED: LISINOPRIL 5 MG TABLET PO ONE (11:00)
[2019-06-29 11:51] LABS: ARTERIAL BLOOD BASE EXCESS 0.7 mmol/L; ARTERIAL BLOOD H2CO3 0.94 mmol/L (1.05-1.35); ARTERIAL BLOOD HCO3 23.4 mmol/L (20-24); ARTERIAL BLOOD PCO2 31.2 mmHg (35-45); ARTERIAL BLOOD PH 7.49 (7.35-7.45); ARTERIAL BLOOD PO2 67.3 mmHg (80-100); ARTERIAL BLOOD TOTAL CO2 24.4 mmol/L (21-25)
[2019-06-29 11:54] LABS: ARTERIAL BLOOD FIO2 21%
[2019-06-29] MEDS: MORPHINE SULFATE 10 MG/ML INJ IV PRN ×2 (12:32→20:00)
--- NOTE | 2019-06-29 12:34 | PDOC PROGRESS REPORT ---
Subjective Progress Note for:: 06/29/19 Subjective:: 06.29.19: Patient remains on the ventilator and tolerated pressure support throughout the day yesterday. Blood pressures, which have been elevated are still labile. Placed patient on 0 pressure support and 0 PEEP to determine respiratory muscle fatigability. She quickly became tachypneic. She still minimal response to noxious stimuli. X-ray is improved as well her creatinine. She had some secretions which were thick on suction this morning. 06.28.19: Patient continues to be off all vasopressor therapy. She has actually had extreme elevations in her blood pressure some of which respond to narcotic pain medication and antihypertensive regimens. She was started on her beta- ximena yesterday as well as ELBA inhibitor. Labs are pending at time of this dictation. He has chronic soft stools and this has developed with the initi ation of tube feeds. She still remains comatose off sedation. She has limited response to noxious stimuli. She was placed on SBT during rounds this morning. White Count has improved. No bleeding events on heparin. 06.27.19: Patient has continued to improve from a hemodynamic point and is off all vasopressor and inotropic therapy. She is now dealing with higher blood pressures with ranges noted in the 180 systolic range at one point. She appeared to improve with fentanyl. Neurologically she is more responsive and starting to spontaneously move her right side. Notably our micro lab called to notify us that she has E. coli in her blood and urine cultures and Enterobacter species in her sputum. Most are blackwell sensitive. Repeat critical care bedside echo shows slight improvement in ejection fraction and mixed venous gas results have remained stable. 06.26.19: Patient admitted for septic shock. Echocardiogram obtained because the base line critical care ultrasound screen showed reduction in EF. Official formal echocardiogram showed an EF about 15 to 20%. Patient was started on Levophed and milrinone. Patient has improved significantly in the last 12 hours. She is clearing her lactic acid and she does not have a significant acidosis. We had some difficulty in obtaining mixed venous gases however this morning's mixed venous gases are acceptable. She does have some low urine output which has improved. Her creatinine has improved as well. Sedation is being weaned and FiO2 is now down to 30%. PEEP has been reduced. Of significance are gram negatives growing in blood sputum and urine. Notably the echocardiogram also showed a possible thrombus in the left ventricle and she was started on heparin. Reason For Visit: SEPSIS Physical Exam Vital Signs: Temp Pulse Resp BP Pulse Ox 100.0 F 90 L 19 181/79 99% Intake & Output 06/27/19 06/28/19 06/29/19 06:59 06:59 06:59 Intake Total 865 285 292 Output Total 565 1205 1245 Balance 300 -920 -953 Weight 56.2 kg 56.4 kg Physical Exam: Chronically and critically ill 64-year-old female appearing older than stated age comatose no active distress, intubated General appearance: PRESENT: no acute distress, well-developed, well-nourished Eye exam: PRESENT: conjunctiva pink. ABSENT: conjunctival injection, nystagmus, scleral icterus Mouth exam: PRESENT: dry mucosa Teeth exam: PRESENT: poor dentation Neck exam: ABSENT: carotid bruit, JVD, lymphadenopathy, meningismus, tenderness, thyromegaly, tracheal deviation, tracheostomy Respiratory exam: PRESENT: clear to auscultation tova, unlabored. ABSENT: accessory muscle use, prolonged expiratory phas, rales, retraction, rhonchi, tachypnea, wheezes Cardiovascular exam: PRESENT: RRR, +S1, +S2 Vascular exam: PRESENT: normal capillary refill GI/Abdominal exam: PRESENT: normal bowel sounds, soft. ABSENT: ascites, distended, guarding, mass, Greene's sign, organolmegaly, rebound, rigid, tenderness Gentrourinary exam: PRESENT: indwelling catheter Extremities exam: ABSENT: calf tenderness, joint swelling, pedal edema Neurological exam: PRESENT: altered Additional comments: She is comatose with a Elmer Coma Scale of 2-1T-3T=6T Psychiatric exam: ABSENT: agitated Skin exam: PRESENT: dry. ABSENT: cyanosis, erythema, jaundice, mottled, pallor, petechiae, urticaria, vesicles Results Laboratory Results: 06/28/19 05:55 06/28/19 17:34 06/28/19 06/28/19 06/28/19 05:55 05:55 05:55 WBC 7.9 RBC 3.75 Hgb 11.2 L Hct 34.5 L MCV 92 MCH 29.9 MCHC 32.5 RDW 13.9 Plt Count 98 L Seg Neutrophils % 83.5 H Carbonic Acid HCO3/H2CO3 Ratio ABG pH ABG pCO2 ABG pO2 ABG HCO3 ABG O2 Saturation ABG Base Excess FiO2 Sodium Potassium Chloride Carbon Dioxide Anion Gap BUN Creatinine Est GFR ( Amer) Glucose Calcium Phosphorus 3.1 Magnesium 2.2 Ammonia < 8.7 L 06/28/19 06/28/19 17:34 17:34 WBC RBC Hgb Hct MCV MCH MCHC RDW Plt Count Seg Neutrophils % Carbonic Acid 0.86 L HCO3/H2CO3 Ratio 24:1 ABG pH 7.49 H ABG pCO2 28.6 L ABG pO2 86.3 ABG HCO3 21.1 ABG O2 Saturation 97.3 ABG Base Excess -1.3 FiO2 35% Sodium 143.7 Potassium 2.3 L* Chloride 112 H Carbon Dioxide 23 Anion Gap 9 BUN 47 H Creatinine 0.84 Est GFR ( Amer) > 60 Glucose 168 H Calcium 8.4 Phosphorus 2.8 Magnesium 2.2 Ammonia 06/25/19 06/25/19 06/25/19 11:50 11:50 19:10 Creatine Kinase 30 CK-MB (CK-2) 0.70 Troponin I 0.066 0.070 06/26/19 06/26/19 06/26/19 03:24 08:12 08:12 Creatine Kinase 59 CK-MB (CK-2) 1.83 Troponin I 0.052 0.047 Laboratory WBC 9.6 10^3/uL (4.0-10.5) 06/29/19 05:27 RBC 3.74 10^6/uL (3.72-5.28) 06/29/19 05:27 Hgb 11.5 g/dL (12.0-15.5) L 06/29/19 05:27 Hct 34.1 % (36.0-47.0) L 06/29/19 05:27 MCV 91 fl (80-97) 06/29/19 05:27 MCH 30.7 pg (27.0-33.4) 06/29/19 05:27 MCHC 33.6 g/dL (32.0-36.0) 06/29/19 05:27 RDW 13.5 % (11.5-14.0) 06/29/19 05:27 Plt Count 104 10^3/uL (150-450) L 06/29/19 05:27 Lymph % (Auto) 7.9 % (13-45) L 06/29/19 05:27 Sac % (Auto) 9.2 % (3-13) 06/29/19 05:27 Eos % (Auto) 0.2 % (0-6) 06/29/19 05:27 Baso % (Auto) 0.2 % (0-2) 06/29/19 05:27 Absolute Neuts (auto) 7.9 10^3/uL (1.7-8.2) 06/29/19 05:27 Absolute Lymphs (auto) 0.8 10^3/uL (0.5-4.7) 06/29/19 05:27 Absolute Monos (auto) 0.9 10^3/uL (0.1-1.4) 06/29/19 05:27 Absolute Eos (auto) 0.0 10^3/uL (0.0-0.6) 06/29/19 05:27 Absolute Basos (auto) 0.0 10^3/uL (0.0-0.2) 06/29/19 05:27 Total Counted 100 06/27/19 03:55 Seg Neutrophils % 82.5 % (42-78) H 06/29/19 05:27 Seg Neuts % (Manual) 76 % (42-78) 06/27/19 03:55 Band Neutrophils % 5 % (3-5) 06/27/19 03:55 Lymphocytes % (Manual) 17 % (13-45) 06/27/19 03:55 Monocytes % (Manual) 2 % (3-13) L 06/27/19 03:55 Eosinophils % (Manual) 0 % (0-6) 06/27/19 03:55 Basophils % (Manual) 0 % (0-2) 06/27/19 03:55 Metamyelocytes % 1 % (0) H 06/26/19 05:37 Abs Neuts (Manual) 6.4 10^3/uL (1.7-8.2) 06/27/19 03:55 Abs Lymphs (Manual) 1.3 10^3/uL (0.5-4.7) 06/27/19 03:55 Abs Monocytes (Manual) 0.2 10^3/uL (0.1-1.4) 06/27/19 03:55 Absolute Eos (Manual) 0.0 10^3/uL (0.0-0.6) 06/27/19 03:55 Abs Basophils (Manual) 0.0 10^3/uL (0.0-0.2) 06/27/19 03:55 Toxic Vacuolation PRESENT 06/27/19 03:55 Platelet Comment DECREASED 06/27/19 03:55 Polychromasia SLIGHT 06/25/19 11:50 Hypochromasia 2+ 06/27/19 03:55 RBC Morph Comment NORMO-CYTIC/CHROMIC 06/26/19 05:37 Sodium 146.3 mmol/L (137-145) H 06/29/19 06:45 Sodium Cancelled 06/29/19 06:45 Potassium 3.6 mmol/L (3.6-5.0) D 06/29/19 06:45 Potassium Cancelled 06/29/19 06:45 Chloride 116 mmol/L (98-107) H 06/29/19 06:45 Chloride Cancelled 06/29/19 06:45 Carbon Dioxide 24 mmol/L (22-30) 06/29/19 06:45 Carbon Dioxide Cancelled 06/29/19 06:45 Anion Gap 6 (5-19) 06/29/19 06:45 Anion Gap Cancelled 06/29/19 06:45 BUN 44 mg/dL (7-20) H 06/29/19 06:45 BUN Cancelled 06/29/19 06:45 Creatinine 0.78 mg/dL (0.52-1.25) 06/29/19 06:45 Creatinine Cancelled 06/29/19 06:45 Est GFR ( Amer) > 60 (>60) 06/29/19 06:45 Est GFR ( Amer) Cancelled 06/29/19 06:45 Est GFR (Non-Af Amer) Cancelled 06/29/19 06:45 Est GFR (MDRD) Non-Af > 60 (>60) 06/29/19 06:45 Est GFR (MDRD) Non-Af Cancelled 06/29/19 06:45 Glucose 230 mg/dL (75-110) H 06/29/19 06:45 Glucose Cancelled 06/29/19 06:45 POC Glucose 198 mg/dL (70-110) H 06/29/19 00:36 Hemoglobin A1c % 6.2 % (4.7-6.0) H 06/26/19 05:37 Lactic Acid 1.4 mmol/L (0.7-2.1) 06/26/19 16:37 Calcium 8.8 mg/dL (8.4-10.2) 06/29/19 06:45 Calcium Cancelled 06/29/19 06:45 Phosphorus 1.7 mg/dL (2.5-4.5) L 06/29/19 06:45 Phosphorus Cancelled 06/29/19 06:45 Magnesium 2.1 mg/dL (1.6-2.3) 06/29/19 06:45 Total Bilirubin 0.7 mg/dL (0.2-1.3) 06/27/19 03:55 Direct Bilirubin 0.3 mg/dL (0.0-0.4) 06/27/19 03:55 Neonat Total Bilirubin Not Reportable 06/27/19 03:55 Neonat Direct Bilirubin Not Reportable 06/27/19 03:55 Neonat Indirect Bili Not Reportable 06/27/19 03:55 AST 32 U/L (14-36) 06/27/19 03:55 ALT 22 U/L (<35) 06/27/19 03:55 Alkaline Phosphatase 77 U/L (38-126) 06/27/19 03:55 Ammonia < 8.7 umol/L (9-33) L 06/29/19 05:27 Creatine Kinase 59 U/L (30-135) 06/26/19 08:12 CK-MB (CK-2) 1.83 ng/mL (<4.55) 06/26/19 08:12 Troponin I 0.047 ng/mL 06/26/19 08:12 Total Protein 5.1 g/dL (6.3-8.2) L 06/27/19 03:55 Albumin 2.4 g/dL (3.5-5.0) L 06/27/19 03:55 EGFR Cancelled 06/29/19 06:45 TSH 1.13 uIU/mL (0.47-4.68) 06/25/19 11:50 Free T4 1.33 ng/dL (0.78-2.19) 06/25/19 11:50 Random Cortisol 111.00 ug/dL (None Established) 06/25/19 19:10 Urine Color KENDALL 06/27/19 04:34 Urine Appearance TURBID 06/27/19 04:34 Urine pH 5.0 (5.0-9.0) 06/27/19 04:34 Ur Specific [place] 1.025 06/27/19 04:34 Urine Protein NEGATIVE mg/dL (NEGATIVE) 06/27/19 04:34 Urine Glucose (UA) NEGATIVE mg/dL (NEGATIVE) 06/27/19 04:34 Urine Ketones TRACE mg/dL (NEGATIVE) H 06/27/19 04:34 Urine Blood NEGATIVE (NEGATIVE) 06/27/19 04:34 Urine Nitrite NEGATIVE (NEGATIVE) 06/27/19 04:34 Urine Bilirubin NEGATIVE (NEGATIVE) 06/27/19 04:34 Urine Urobilinogen NEGATIVE mg/dL (<2.0) 06/27/19 04:34 Ur Leukocyte Esterase SMALL (NEGATIVE) H 06/27/19 04:34 Urine WBC (Auto) 4 /HPF 06/27/19 04:34 Urine RBC (Auto) 1 /HPF 06/27/19 04:34 U Hyaline Cast (Auto) Cancelled 06/25/19 12:08 Urine Bacteria (Auto) Cancelled 06/25/19 12:08 Urine Red Cell Clumps Cancelled 06/25/19 12:08 Urine WBC Clumps MANY /HPF 06/25/19 21:20 Squamous Epi Cells Auto 1 /HPF 06/27/19 04:34 U Non-Squamous Epis Auto 1 /HPF 06/25/19 21:20 Calcium Carbonate Cryst Cancelled 06/25/19 12:08 Calcium Phosphate Cryst Cancelled 06/25/19 12:08 Calcium Oxalate Cr Auto Cancelled 06/25/19 12:08 Leucine Crystals Cancelled 06/25/19 12:08 Cystine Crystals Cancelled 06/25/19 12:08 Uric Acid Cryst (Auto) Cancelled 06/25/19 12:08 Triple Phos Cryst (Auto) Cancelled 06/25/19 12:08 Tyrosine Crystals Cancelled 06/25/19 12:08 Amorphous Sediment Auto Cancelled 06/25/19 12:08 Cellular Casts Cancelled 06/25/19 12:08 Epithelial Casts (Auto) Cancelled 06/25/19 12:08 Fatty Casts Cancelled 06/25/19 12:08 Granular Casts (Auto) Cancelled 06/25/19 12:08 Waxy Casts (Auto) Cancelled 06/25/19 12:08 Broad Casts Cancelled 06/25/19 12:08 RBC Casts (Auto) Cancelled 06/25/19 12:08 WBC Casts (Auto) Cancelled 06/25/19 12:08 Urine Mucus (Auto) RARE /LPF 06/27/19 04:34 U Trichomonas (Auto) Cancelled 06/25/19 12:08 Ur Yeast w Hyphae Cancelled 06/25/19 12:08 Urine Yeast (Budding) Cancelled 06/25/19 12:08 Urine Ascorbic Acid 40 (NEGATIVE) H 06/27/19 04:34 Impressions: Head CT 06/25/19 11:45 IMPRESSION: MICROVASCULAR ISCHEMIA AND GENERALIZED ATROPHY. 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 NO ACUTE IMAGING FINDINGS IN THE BRAIN. EVIDENCE OF ACUTE STROKE: NO. KUB X-Ray 06/26/19 00:00 IMPRESSION: The gastrostomy tube is positioned in the stomach and is patent. Chest X-Ray 06/28/19 06:00 IMPRESSION: Persistent left retrocardiac consolidation Tubes and lines in good positioning. Assessment & Plan - Diagnosis (1) Sepsis due to Gram negative bacteria Is this a current diagnosis for this admission?: Yes (2) Cardiogenic shock Is this a current diagnosis for this admission?: Yes (3) ARDS (adult respiratory distress syndrome) Is this a current diagnosis for this admission?: Yes (4) Aspiration pneumonia Qualifiers: Aspiration pneumonia type: due to vomit Laterality: bilateral Lung location: unspecified part of lung Qualified Code(s): J69.0 - Pneumonitis due to inhalation of food and vomit Is this a current diagnosis for this admission?: Yes (5) Lactic acid acidosis Is this a current diagnosis for this admission?: Yes (6) Sepsis due to Gram-negative organism with septic shock Is this a current diagnosis for this admission?: Yes (7) Hypotension arterial Qualifiers: Hypotension type: other hypotension type Qualified Code(s): I95.89 - Other hypotension Is this a current diagnosis for this admission?: Yes (8) Left ventricular thrombus Is this a current diagnosis for this admission?: Yes (9) Aspiration pneumonia Qualifiers: Aspiration pneumonia type: due to regurgitated food Laterality: bilateral Lung location: unspecified part of lung Qualified Code(s): J69.0 - Pneumonitis due to inhalation of food and vomit Is this a current diagnosis for this admission?: Yes (10) E coli bacteremia Is this a current diagnosis for this admission?: Yes (11) Enterobacter cloacae pneumonia Is this a current diagnosis for this admission?: Yes (12) Acute metabolic encephalopathy Is this a current diagnosis for this admission?: Yes (13) Escherichia coli urinary tract infection Is this a current diagnosis for this admission?: Yes (14) Complicated UTI (urinary tract infection) Is this a current diagnosis for this admission?: Yes (15) Diabetes Qualifiers: Diabetes mellitus type: type 2 Diabetes mellitus residential insulin use: without dedicated intermodal truck driver use Diabetes mellitus complication status: with other specified complication Qualified Code(s): E11.69 - Type 2 diabetes mellitus with other specified complication Is this a current diagnosis for this admission?: Yes (16) Atrial fibrillation with controlled ventricular rate Is this a current diagnosis for this admission?: Yes - Time Time Spent with patient: 35 or more minutes Total Critical Time (Minutes): 80 Medications reviewed and adjusted accordingly: Yes Anticipated discharge: Other - Comfort care Disposition: Extubation with probable comfort care - Inpatient Certification Based on my medical assessment, after consideration of the patient's comorbidities, presenting symptoms, or acuity I expect that the services needed warrant INPATIENT care.: Yes I certify that my determination is in accordance with my understanding of [facility]'s requirements for reasonable and necessary INPATIENT services [42 CFR 412.3e].: Yes Medical Necessity: Significant Comorbidiites Make Outpatient Treatment Too Risky, Need Close Monitoring Due to Risk of Patient Decompensation, Need For IV Fluids, Need for Neurological Checks, Need for Pain Control, Need for IV Antibiotics - Plan Summary Plan Summary: 06.29.19: She has baseline diminished motor function and, cognitively, at baseline has minimal interactions. She does occasionally say yes or no. Has been maintained on pressure support however unable to be liberated secondary to marked deconditioning and baseline muscle dysfunction. I had a lengthy discussion again with the family who has elected to pursue liberation from the ventilator and transition to comfort care if she fails. I placed the patient on limited support on the ventilator and she quickly became tachypneic. I anticipate that her liberation from the ventilator will culminate in the need for transition to comfort care. The family is absolutely accepting of this and would prefer this then for the patient to linger in her already baseline altered state. As per government guidelines I did contact the local organ procurement organization ([employer] ). And her comorbidities and her recent sepsis she would not be a DCD candidate. Her in agreement with the above and will proceed to liberation from the ventilator. Patient's wishes at baseline were for no prolonged care and given her already altered neurological status she is at risk for failure and would need a tracheostomy. This would be against her wishes and her family's wishes. Assured integrity and respect for her dignity and should she have difficulty with liberation we will treat with comfort care measures. 06.28.19 Patient has had consistent and persistent hypertension and has been placed on beta-ximena and ELBA inhibitor therapy. Added hydralazine to her armamentarium. Patient appears to be tolerating SBT and will order blood gas for this afternoon. Despite what the findings may show as far as encouragement for improvement in her ventilatory function her neurological status is such that I am concerned that she will not tolerate liberation from the ventilator. I re- iterated this with the and the family today. We will continue to provide supportive care. Plan is for reevaluation for liberation from the ventilator. The family states that the patient does not lift her head at baseline and has decreased motor function of the right arm. 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 I am concerned that she will not survive liberation and the family is aware of this and would advocate for comfort care and no prolonged care. This would be her wish as well. 06.27.19: Patient continues to have improvement. Patient has improved to the point that we will start an SBT. Her neurological status is suppressed enough that I do not feel she is safe for liberation however we will start the process of diaphragmatic muscle mobilization. Patient has significant hypertension which is of dramatic significance given her severe hypotension on admission. She still has reduced ejection fraction. At this point we will start beta-ximena and ELBA inhibitor. Her creatinine function has improved significantly as well. She does have atrial fibrillation which appears to be persistent with a controlled rate. She is on heparin for ventricular thrombus and will continue this in addition for atrial fibrillation. From a neurological standpoint patient has a baseline neurological deficit and is bedridden for 5 to 7 years. She appears to have diminished cognition which was made worsened by her infection. She does have metabolic encephalopathy secondary to toxic results from her sepsis. To that and she appears to have hypoactive delirium. Based on numerous case studies and anecdotal evidence patients such as this responded to Ritalin. We will attempt this in an attempt to determine whether we can improve her neurological status. I had a lengthy talk with her and her son Oliver who are her medical power of attorney general's. They do not want prolonged ventilator care and should she not be able to be weaned they would advocate based on the patient's wishes for comfort care and withdrawal of ventilator support. The care of a critically ill patient is dynamic. This note represents a static time-frame in the admission process. Orders and treatments may be given simultaneously and urgently, and time is not sales service representative of the treatment process. This patient requires Critical Care secondary to life-threatening organ or limb dysfunction. Without the need for Critical Care services, the patient is at risk for increased mortality and morbidity. MPOA: Son: Oliver, : Jose
[2019-06-29] MEDS: HEPARIN SODIUM,PORCINE/D5W 25,000 UNIT/250 ML RTUINJ IV PRN (13:51)
[2019-06-29] MEDS: RIVAROXABAN 10 MG TABLET PO SCH (21:40)
[2019-06-29] MEDS: LISINOPRIL 10 MG TABLET PO SCH (21:45)
[2019-06-30] MEDS: MEROPENEM 1 GM in NORMAL SALINE 50 ML IV SCH ×3 (06:00→21:21)
[2019-06-30 06:48] LABS: ABSOLUTE BASOPHILS # (AUTO) 0.1 10^3/uL (0.0-0.2); ABSOLUTE EOSINOPHILS # (AUTO) 0.1 10^3/uL (0.0-0.6); ABSOLUTE LYMPHOCYTES (AUTO) 0.9 10^3/uL (0.5-4.7); ABSOLUTE MONOCYTES (AUTO) 0.8 10^3/uL (0.1-1.4); ABSOLUTE NEUT (AUTO) 6.6 10^3/uL (1.7-8.2); BASOPHILS % (AUTO) 0.6 % (0-2); EOSINOPHILS % (AUTO) 1.1 % (0-6); HEMATOCRIT 34.3 % (36.0-47.0); HEMOGLOBIN 11.5 g/dL (12.0-15.5); LYMPHOCYTES % (AUTO) 11.1 % (13-45); MEAN CORPUSCULAR HEMOGLOBIN 30.4 pg (27.0-33.4); MEAN CORPUSCULAR HGB CONC 33.4 g/dL (32.0-36.0); MEAN CORPUSCULAR VOLUME 91 fl (80-97); MONOCYTES % (AUTO) 9.7 % (3-13); PLATELET COUNT 138 10^3/uL (150-450); RED BLOOD COUNT 3.77 10^6/uL (3.72-5.28); RED CELL DISTRIBUTION WIDTH 13.5 % (11.5-14.0); SEGMENTED NEUTROPHILS % (AUTO) 77.5 % (42-78); TOTAL CELLS COUNTED % (AUTO) 100 %; WHITE BLOOD COUNT 8.5 10^3/uL (4.0-10.5)
[2019-06-30 07:07] LABS: GLUCOSE 222 mg/dL (75-110)
[2019-06-30 07:40] LABS: ANION GAP 5 (5-19); BLOOD UREA NITROGEN 37 mg/dL (7-20); CALCIUM 8.8 mg/dL (8.4-10.2); CARBON DIOXIDE 27 mmol/L (22-30); CHLORIDE 117 mmol/L (98-107); PHOSPHORUS 2.6 mg/dL (2.5-4.5); POTASSIUM 3.2 mmol/L (3.6-5.0)
--- NOTE | 2019-06-30 09:21 | PDOC PROGRESS REPORT ---
Subjective Progress Note for:: 06/30/19 Subjective:: 06.30.19: Patient was successfully extubated yesterday. Given her baseline negligible neurologic function we were prepared, as well as the family, for demise failure after liberation from ventilator. Patient remained comatose after liberation and family informed us that this is her "normal baseline". Her blood pressures have improved. She was started on NOAK therapy for thrombus formation in left ventricle. Much anecdotal data about the use of NOAC therapy in this situation with successful resolution of thrombus. Has been no noted seizures, tachycardia, hemodynamic instability, seizures or hypoxia. She was restarted on her tube feeds. She has frequent liquid bowel movements from tube feeds. 06.29.19: Patient remains on the ventilator and tolerated pressure support throughout the day yesterday. Blood pressures, which have been elevated are still labile. Placed patient on 0 pressure support and 0 PEEP to determine respiratory muscle fatigability. She quickly became tachypneic. She still minimal response to noxious stimuli. X-ray is improved as well her creatinine. She had some secretions which were thick on suction this morning. 06.28.19: Patient continues to be off all vasopressor therapy. She has actually had extreme elevations in her blood pressure some of which respond to narcotic pain medication and antihypertensive regimens. She was started on her beta- ximena yesterday as well as ELBA inhibitor. Labs are pending at time of this dictation. He has chronic soft stools and this has developed with the initiation of tube feeds. She still remains comatose off sedation. She has limited response to noxious stimuli. She was placed on SBT during rounds this morning. White Count has improved. No bleeding events on heparin. 06.27.19: Patient has continued to improve from a hemodynamic point and is off all vasopressor and inotropic therapy. She is now dealing with higher blood pressures with ranges noted in the 180 systolic range at one point. She appeared to improve with fentanyl. Neurologically she is more responsive and starting to spontaneously move her right side. Notably our micro lab called to notify us that she has E. coli in her blood and urine cultures and Enterobacter species in her sputum. Most are blackwell sensitive. Repeat critical care bedside echo shows slight improvement in ejection fraction and mixed venous gas results have remained stable. 06.26.19: Patient admitted for septic shock. Echocardiogram obtained because the base line critical care ultrasound screen showed reduction in EF. Official formal echocardiogram showed an EF about 15 to 20%. Patient was started on Levophed and milrinone. Patient has improved significantly in the last 12 hours. She is clearing her lactic acid and she does not have a significant acidosis. We had some difficulty in obtaining mixed venous gases however this morning's mixed venous gases are acceptable. She does have some low urine output which has improved. Her creatinine has improved as well. Sedation is being weaned and FiO2 is now down to 30%. PEEP has been reduced. Of significance are gram negatives growing in blood sputum and urine. Notably the echocardiogram also showed a possible thrombus in the left ventricle and she was started on heparin. Reason For Visit: SEPSIS Physical Exam Vital Signs: Temp Pulse Resp BP Pulse Ox 99.1 F 62 16 169/72 H 96 06/29/19 18:00 06/29/19 22:00 06/30/19 06:01 06/30/19 06:00 06/30/19 06:01 Intake & Output 06/29/19 06/30/19 07/01/19 06:59 06:59 06:59 Intake Total 864 661 50 Output Total 1620 1005 Balance -756 -344 50 Weight 57.6 kg 57.4 kg Physical Exam: Chronically and critically ill-appearing 64-year-old female no active distress. Left arm held in chronic flexion contracture left leg and chronic abduction and flexion at the knee. These were present prior to admission General appearance: PRESENT: no acute distress, well-developed, well-nourished Head exam: PRESENT: atraumatic, normocephalic Eye exam: PRESENT: conjunctiva pink, PERRLA. ABSENT: conjunctival injection, nystagmus, scleral icterus Mouth exam: PRESENT: dry mucosa, neck supple Teeth exam: PRESENT: poor dentation Neck exam: PRESENT: JVD, lymphadenopathy, meningismus, thyromegaly. ABSENT: carotid bruit Additional comments: Right IJ central venous catheter clean dry and intact Respiratory exam: PRESENT: clear to auscultation tova. ABSENT: accessory muscle use, unlabored Cardiovascular exam: PRESENT: RRR, +S1, +S2 Vascular exam: PRESENT: normal capillary refill GI/Abdominal exam: PRESENT: normal bowel sounds, soft. ABSENT: ascites, diminished bowel sounds, distended, firm, guarding, mass, Greene's sign, tenderness Additonal comments: PEG tube site is clean, dry, intact Gentrourinary exam: PRESENT: indwelling catheter Extremities exam: ABSENT: joint swelling, pedal edema Musculoskeletal exam: ABSENT: ambulatory Neurological exam: PRESENT: altered, motor sensory deficit. ABSENT: reflexes normal Additional comments: Off ventilator patient has spontaneous yawning. Her left upper arm and left leg are held in chronic flexion contracture as noted in previous exam. She is responsive to noxious stimuli. She does open her eyes to voice. No verbal response. Foot has chronic foot drop. GCS is: 3-1-3 Psychiatric exam: ABSENT: agitated, appropriate affect, unusual affect Focused psych exam: PRESENT: catatonic Skin exam: PRESENT: dry, intact, normal color, petechiae - Patient has had noted petechiae on lower extremities and portion of the upper extremities were present on admission. These appear to be chronic and may be familial., warm. ABSENT: cyanosis, erythema, jaundice, mottled Results Laboratory Results: 06/30/19 06:30 06/30/19 06:30 06/29/19 06/30/19 06/30/19 11:42 06:30 06:30 WBC 8.5 RBC 3.77 Hgb 11.5 L Hct 34.3 L MCV 91 MCH 30.4 MCHC 33.4 RDW 13.5 Plt Count 138 L Seg Neutrophils % 77.5 Carbonic Acid 0.94 L HCO3/H2CO3 Ratio 24:1 ABG pH 7.49 H ABG pCO2 31.2 L ABG pO2 67.3 L ABG HCO3 23.4 ABG O2 Saturation 95.0 ABG Base Excess 0.7 FiO2 21% Sodium 149.0 H Potassium 3.2 L Chloride 117 H Carbon Dioxide 27 Anion Gap 5 BUN 37 H Creatinine 0.61 Est GFR ( Amer) > 60 Glucose 222 H Calcium 8.8 Phosphorus 2.6 Magnesium 2.0 06/25/19 06/25/19 06/25/19 11:50 11:50 19:10 Creatine Kinase 30 CK-MB (CK-2) 0.70 Troponin I 0.066 0.070 06/26/19 06/26/19 06/26/19 03:24 08:12 08:12 Creatine Kinase 59 CK-MB (CK-2) 1.83 Troponin I 0.052 0.047 Impressions: Head CT 06/25/19 11:45 IMPRESSION: MICROVASCULAR ISCHEMIA AND GENERALIZED ATROPHY. 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 NO ACUTE IMAGING FINDINGS IN THE BRAIN. EVIDENCE OF ACUTE STROKE: NO. KUB X-Ray 06/26/19 00:00 IMPRESSION: The gastrostomy tube is positioned in the stomach and is patent. Chest X-Ray 06/29/19 06:00 IMPRESSION: STABLE APPEARANCE OF THE CHEST. SUPPORT DEVICES UNCHANGED. Assessment & Plan - Diagnosis (1) Sepsis due to Gram negative bacteria Is this a current diagnosis for this admission?: Yes Plan: Resolved. Continue antibiotics for 10 days. Today is day 5-02/26 (2) Cardiogenic shock Is this a current diagnosis for this admission?: Yes Plan: Improved. Continue BBlocker and ACEI. Has atrial enlargement on echo. At risk for Atrial fibrillation. Has Atrial fibrillation on ECG and left ventricular thrombus on Echocardiogram (3) ARDS (adult respiratory distress syndrome) Is this a current diagnosis for this admission?: Yes Plan: Resolved (4) Aspiration pneumonia Qualifiers: Aspiration pneumonia type: due to vomit Laterality: bilateral Lung location: unspecified part of lung Qualified Code(s): J69.0 - Pneumonitis due to inhalation of food and vomit Is this a current diagnosis for this admission?: Yes Plan: Resolved (5) Lactic acid acidosis Is this a current diagnosis for this admission?: Yes Plan: Resolved. (6) Sepsis due to Gram-negative organism with septic shock Is this a current diagnosis for this admission?: Yes Plan: Continue meropenem 10 days. Resolved sepsis (7) Hypotension arterial Qualifiers: Hypotension type: other hypotension type Qualified Code(s): I95.89 - Other hypotension Is this a current diagnosis for this admission?: Yes Plan: Resolved (8) Left ventricular thrombus Is this a current diagnosis for this admission?: Yes Plan: Anticoagulation for at least 3 months. Would prefer PANFILO. Repeat TTE in 3 months (9) Aspiration pneumonia Qualifiers: Aspiration pneumonia type: due to regurgitated food Laterality: bilateral Lung location: unspecified part of lung Qualified Code(s): J69.0 - Pneumonitis due to inhalation of food and vomit Is this a current diagnosis for this admission?: Yes (10) E coli bacteremia Is this a current diagnosis for this admission?: Yes Plan: 10 days antibiotics. IDSA guidelines do not recommend repeat culture (11) Enterobacter cloacae pneumonia Is this a current diagnosis for this admission?: Yes Plan: Improved. Blackwell sensitive, however, IDSA does not recommend Third generation cephalosporins secondary to AmpC antigenicity/resistance. Continue Meropenem for 7 days for pneumonia but need additional days for bacteremia (12) Acute metabolic encephalopathy Is this a current diagnosis for this admission?: Yes Plan: Somewhat improved but altered at baseline (13) Escherichia coli urinary tract infection Is this a current diagnosis for this admission?: Yes Plan: Patient does not have chronic indwelling dejesus. Follow supportively (14) Complicated UTI (urinary tract infection) Is this a current diagnosis for this admission?: Yes Plan: Patient has non-obstructing stones. Continue for 10-14 days (15) Diabetes Qualifiers: Diabetes mellitus type: type 2 Diabetes mellitus jail insulin use: without jail use Diabetes mellitus complication status: with other specified complication Qualified Code(s): E11.69 - Type 2 diabetes mellitus with other specified complication Is this a current diagnosis for this admission?: Yes (16) Atrial fibrillation with controlled ventricular rate Is this a current diagnosis for this admission?: Yes Plan: Beta-ximena, control pain. Patient to be started on methyphenidate for hypo- active delirium. No evidence to support worsening Atrial fibrillation. On NOAC therapy - Time Time Spent with patient: 35 or more minutes Total Critical Time (Minutes): 45 Medications reviewed and adjusted accordingly: Yes Anticipated discharge: Home, Home with Homehealth Within: within 24 hours - Inpatient Certification Based on my medical assessment, after consideration of the patient's comorbidities, presenting symptoms, or acuity I expect that the services needed warrant INPATIENT care.: Yes I certify that my determination is in accordance with my understanding of Medicare's requirements for reasonable and necessary INPATIENT services [42 CFR 412.3e].: Yes Medical Necessity: Need Close Monitoring Due to Risk of Patient Decompensation, Need For IV Fluids, Need for IV Antibiotics - Plan Summary Plan Summary: 06.30.19: Patient has improved however she has a significantly altered baseline and we do not expect much more improvement. Each of the above infections various length of antibiotics are noted by infectious disease groups. I far the longest length of time is at least 2 weeks for nonobstructing renal calculi with urinary tract infection. As noted above patient does not have a chronic indwel ling Dejesus. We will plan and try to meet with the family to discuss their options. One option may be home with home antibiotics. Is at her normal baseline with not much ability to recover she is not a candidate for acute rehab. Will ask social work to help us with this. We will also discuss with the family what they would want to continue as far as aggressive treatment (e.g. anticoagulation, lipid medications). We will discontinue the NG tube central venous catheter and art line today. Patient will need replacement of her PEG tube which we will do at bedside as well after discussion with family. 06.29.19: She has baseline diminished motor function and, cognitively, at baseline has minimal interactions. She does occasionally say yes or no. Has been maintained on pressure support however unable to be liberated secondary to marked deconditioning and baseline muscle dysfunction. I had a lengthy discussion again with the family who has elected to pursue liberation from the ventilator and transition to comfort care if she fails. I placed the patient on limited support on the ventilator and she quickly became tachypneic. I anticipate that her liberation from the ventilator will culminate in the need for transition to comfort care. The family is absolutely accepting of this and would prefer this then for the patient to linger in her already baseline altered state. As per government guidelines I did contact the local organ procurement organization ([place] ). And her comorbidities and her recent sepsis she would not be a DCD candidate. Her in agreement with the above and will proceed to liberation from the ventilator. Patient's wishes at baseline were for no prolonged care and given her already altered neurological status she is at risk for failure and would need a tracheostomy. This would be against her wishes and her family's wishes. Assured integrity and respect for her dignity and should she have difficulty with liberation we will treat with comfort care measures. 06.28.19 Patient has had consistent and persistent hypertension and has been placed on beta-ximena and ELBA inhibitor therapy. Added hydralazine to her armamentarium. Patient appears to be tolerating SBT and will order blood gas for this afternoon. Despite what the findings may show as far as encouragement for improvement in her ventilatory function her neurological status is such that I am concerned that she will not tolerate liberation from the ventilator. I re- iterated this with the and the family today. We will continue to provide supportive care. Plan is for reevaluation for liberation from the ventilator. The family states that the patient does not lift her head at baseline and has decreased motor function of the right arm. 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 I am concerned that she will not survive liberation and the family is aware of this and would advocate for comfort care and no prolonged care. This would be her wish as well. 06.27.19: Patient continues to have improvement. Patient has improved to the point that we will start an SBT. Her neurological status is suppressed enough that I do not feel she is safe for liberation however we will start the process of diaphragmatic muscle mobilization. Patient has significant hypertension which is of dramatic significance given her severe hypotension on admission. She still has reduced ejection fraction. At this point we will start beta-ximena and ELBA inhibitor. Her creatinine function has improved significantly as well. She does have atrial fibrillation which appears to be persistent with a controlled rate. She is on heparin for ventricular thrombus and will continue this in addition for atrial fibrillation. From a neurological standpoint patient has a baseline neurological deficit and is bedridden for 5 to 7 years. She appears to have diminished cognition which was made worsened by her infection. She does have metabolic encephalopathy secondary to toxic results from her sepsis. To that and she appears to have hypoactive delirium. Based on numerous case studies and anecdotal evidence patients such as this responded to Ritalin. We will attempt this in an attempt to determine whether we can improve her neurological status. I had a lengthy talk with her and her son Oliver who are her medical power of bankruptcy attorney's. They do not want prolonged ventilator care and should she not be able to be weaned they would advocate based on the patient's wishes for comfort care and withdrawal of ventilator support. The care of a critically ill patient is dynamic. This note represents a static time-frame in the admission process. Orders and treatments may be given simultaneously and urgently, and time is not manufacturer representative of the treatment process. This patient requires Critical Care secondary to life-threatening organ or limb dysfunction. Without the need for Critical Care services, the patient is at risk for increased mortality and morbidity. MPOA: Son: Oliver, : Jose
[2019-06-30] MEDS: POTASSIUM CHLORIDE 20 MEQ/50 ML RTU IV SCH ×2 (10:04→12:00)
[2019-06-30] MEDS: LISINOPRIL 10 MG TABLET PO SCH ×2 (10:04→21:21)
[2019-06-30] MEDS: METOPROLOL TARTRATE 25 MG TABLET PO SCH (10:04)
[2019-06-30] MEDS: HYDRALAZINE HCL INJ/PF 20 MG/1 ML SDV IV PRN (11:15)
[2019-06-30] MEDS: RIVAROXABAN 10 MG TABLET PO SCH (17:15)
[2019-06-30] MEDS ORDERED: METOPROLOL TARTRATE 50 MG TABLET PO SCH (22:00)
[2019-06-30] MEDS ORDERED: METOPROLOL TARTRATE 25 MG TABLET PO SCH (22:00)
[2019-07-01] MEDS: MEROPENEM 1 GM in NORMAL SALINE 50 ML IV SCH (05:26)
[2019-07-01 05:44] LABS: ABSOLUTE EOSINOPHILS # (AUTO) 0.1 10^3/uL (0.0-0.6); ABSOLUTE LYMPHOCYTES (AUTO) 1.2 10^3/uL (0.5-4.7); ABSOLUTE MONOCYTES (AUTO) 0.8 10^3/uL (0.1-1.4); ABSOLUTE NEUT (AUTO) 8.1 10^3/uL (1.7-8.2); BASOPHILS % (AUTO) 0.2 % (0-2); EOSINOPHILS % (AUTO) 0.8 % (0-6); HEMATOCRIT 35.3 % (36.0-47.0); HEMOGLOBIN 11.8 g/dL (12.0-15.5); MEAN CORPUSCULAR HEMOGLOBIN 30.5 pg (27.0-33.4); MEAN CORPUSCULAR HGB CONC 33.4 g/dL (32.0-36.0); MEAN CORPUSCULAR VOLUME 91 fl (80-97); MONOCYTES % (AUTO) 8.1 % (3-13); PLATELET COUNT 163 10^3/uL (150-450); RED BLOOD COUNT 3.86 10^6/uL (3.72-5.28); RED CELL DISTRIBUTION WIDTH 13.9 % (11.5-14.0); SEGMENTED NEUTROPHILS % (AUTO) 78.9 % (42-78); TOTAL CELLS COUNTED % (AUTO) 100 %; WHITE BLOOD COUNT 10.2 10^3/uL (4.0-10.5)
[2019-07-01 06:10] LABS: ANION GAP 5 (5-19); BLOOD UREA NITROGEN 28 mg/dL (7-20); CALCIUM 8.8 mg/dL (8.4-10.2); CARBON DIOXIDE 28 mmol/L (22-30); CHLORIDE 115 mmol/L (98-107); GLUCOSE 294 mg/dL (75-110); POTASSIUM 3.7 mmol/L (3.6-5.0)
[2019-07-01 06:35] LABS: ERYTHROCYTE SEDIMENTATION RATE 73 mm/hr (0-30)
[2019-07-01] MEDS ORDERED: METOPROLOL TARTRATE PF/INJ 5 MG/5 ML SDV IV ONE (07:54)
[2019-07-01 08:55] LABS: ARTERIAL BLOOD BASE EXCESS 1.7 mmol/L; ARTERIAL BLOOD FIO2 2L; ARTERIAL BLOOD H2CO3 0.75 mmol/L (1.05-1.35); ARTERIAL BLOOD HCO3 22.1 mmol/L (20-24); ARTERIAL BLOOD O2 SATURATION 97.7 % (94-98); ARTERIAL BLOOD PCO2 24.8 mmHg (35-45); ARTERIAL BLOOD PH 7.57 (7.35-7.45); ARTERIAL BLOOD PO2 86.1 mmHg (80-100); ARTERIAL BLOOD TOTAL CO2 22.8 mmol/L (21-25)
[2019-07-01] MEDS: LISINOPRIL 10 MG TABLET PO SCH (09:42)
[2019-07-01] MEDS ORDERED: METOPROLOL TARTRATE 50 MG TABLET PO SCH (10:00)
[2019-07-01 10:09] VITALS: BP 113/83
--- NOTE | 2019-07-01 11:25 | PDOC PROGRESS REPORT ---
Subjective Progress Note for:: 07/01/19 Subjective:: 07.01.19: Patient had several episodes of what appears to be aspirate ration of her oral secretions. An attempt to try to suction patient bit down on the suction catheter and would not release. She had loss of her lower front left tooth (questionable #24 or 25). Family was made aware. She has been hypertensive and her blood pressure medications were increased. She developed tachycardia last evening during this aspiration event requiring beta-ximena therapy. Only is inquiring about the possibility of hospice. 06.30.19: Patient was successfully extubated yesterday. Given her baseline negligible neurologic function we were prepared, as well as the family, for demise failure after liberation from ventilator. Patient remained comatose after liberation and family informed us that this is her "normal baseline". Her blood pressures have improved. She was started on NOAK therapy for thrombus formation in left ventricle. Much anecdotal data about the use of NOAC therapy in this situation with successful resolution of thrombus. Has been no noted seizures, tachycardia, hemodynamic instability, seizures or hypoxia. She was restarted on her tube feeds. She has frequent liquid bowel movements from tube feeds. 06.29.19: Patient remains on the ventilator and tolerated pressure support throughout the day yesterday. Blood pressures, which have been elevated are still labile. Placed patient on 0 pressure support and 0 PEEP to determine respiratory muscle fatigability. She quickly became tachypneic. She still minimal response to noxious stimuli. X-ray is improved as well her creatinine. She had some secretions which were thick on suction this morning. 06.28.19: Patient continues to be off all vasopressor therapy. She has actually had extreme elevations in her blood pressure some of which respond to narcotic pain medication and antihypertensive regimens. She was started on her beta- ximena yesterday as well as ELBA inhibitor. Labs are pending at time of this dictation. He has chronic soft stools and this has developed with the initiation of tube feeds. She still remains comatose off sedation. She has limited response to noxious stimuli. She was placed on SBT during rounds this morning. White Count has improved. No bleeding events on heparin. 06.27.19: Patient has continued to improve from a hemodynamic point and is off all vasopressor and inotropic therapy. She is now dealing with higher blood pressures with ranges noted in the 180 systolic range at one point. She appeared to improve with fentanyl. Neurologically she is more responsive and starting to spontaneously move her right side. Notably our micro lab called to notify us that she has E. coli in her blood and urine cultures and Enterobacter species in her sputum. Most are blackwell sensitive. Repeat critical care bedside echo shows slight improvement in ejection fraction and mixed venous gas results have remained stable. 06.26.19: Patient admitted for septic shock. Echocardiogram obtained because the base line critical care ultrasound screen showed reduction in EF. Official formal echocardiogram showed an EF about 15 to 20%. Patient was started on Levophed and milrinone. Patient has improved significantly in the last 12 hours. She is clearing her lactic acid and she does not have a significant acidosis. We had some difficulty in obtaining mixed venous gases however this morning's mixed venous gases are acceptable. She does have some low urine output which has improved. Her creatinine has improved as well. Sedation is being weaned and FiO2 is now down to 30%. PEEP has been reduced. Of significance are gram negatives growing in blood sputum and urine. Notably the echocardiogram also showed a possible thrombus in the left ventricle and she was started on heparin. Reason For Visit: SEPSIS Physical Exam Vital Signs: Temp Pulse Resp BP Pulse Ox 100.4 F 104 H 20 113/83 100 07/01/19 10:00 07/01/19 10:00 07/01/19 10:01 07/01/19 10:01 07/01/19 10:01 Intake & Output 06/30/19 07/01/19 07/02/19 06:59 06:59 06:59 Intake Total 661 2017 727 Output Total 1005 1250 150 Balance -344 767 577 Weight 57.4 kg 57.7 kg Physical Exam: Chronically and critically ill appearing 64-year-old female with eye-opening to voice and noxious stimuli active distress General appearance: PRESENT: no acute distress, well-developed, well-nourished Head exam: PRESENT: atraumatic, normocephalic Eye exam: PRESENT: conjunctiva pink, nystagmus, PERRLA. ABSENT: conjunctival injection, EOMI Mouth exam: PRESENT: dry mucosa, other Teeth exam: PRESENT: dental caries, poor dentation, other Additional comments: Loss of tooth structure front lower left. Multiple caries. Appears to be tooth #24 or #25 Teeth Image: 1 - Loss of teeth Neck exam: ABSENT: carotid bruit, JVD, lymphadenopathy, tenderness, tracheal deviation Respiratory exam: ABSENT: accessory muscle use, clear to auscultation tova, unlabored Cardiovascular exam: PRESENT: irregular rhythm, +S1, +S2 Vascular exam: PRESENT: normal capillary refill GI/Abdominal exam: PRESENT: normal bowel sounds, soft. ABSENT: ascites, diminished bowel sounds, distended, firm, guarding, mass, Greene's sign, rebound, tenderness Additonal comments: G-tube clean dry intact Rectal exam: PRESENT: deferred Gentrourinary exam: PRESENT: indwelling catheter Extremities exam: ABSENT: joint swelling, pedal edema Musculoskeletal exam: PRESENT: deformity Additional comments: Left upper extremity wrist is held in chronic flexion as well as elbow. Left lower extremity in abduction and flexion at the knee were present prior to admission Neurological exam: PRESENT: altered, motor sensory deficit. ABSENT: CN II-XII grossly intact Focused psych exam: PRESENT: catatonic Skin exam: PRESENT: dry, intact, normal color, petechiae - present on admission. ABSENT: cyanosis, erythema, jaundice, mottled, pallor, rash Results Laboratory Results: 07/01/19 05:30 07/01/19 05:30 07/01/19 07/01/19 07/01/19 05:30 05:30 08:08 WBC 10.2 RBC 3.86 Hgb 11.8 L Hct 35.3 L MCV 91 MCH 30.5 MCHC 33.4 RDW 13.9 Plt Count 163 Seg Neutrophils % 78.9 H Carbonic Acid 0.75 L HCO3/H2CO3 Ratio 29:1 ABG pH 7.57 H ABG pCO2 24.8 L ABG pO2 86.1 ABG HCO3 22.1 ABG O2 Saturation 97.7 ABG Base Excess 1.7 FiO2 2L Sodium 147.9 H Potassium 3.7 Chloride 115 H Carbon Dioxide 28 Anion Gap 5 BUN 28 H Creatinine 0.50 L Est GFR ( Amer) > 60 Glucose 294 H Calcium 8.8 Phosphorus 2.0 L Magnesium 1.8 06/26/19 10:37 Blood Blood Culture - Final NO GROWTH IN 5 DAYS 06/26/19 05:35 Blood Blood Culture - Final NO GROWTH IN 5 DAYS 06/25/19 06/25/19 06/25/19 11:50 11:50 19:10 Creatine Kinase 30 CK-MB (CK-2) 0.70 Troponin I 0.066 0.070 06/26/19 06/26/19 06/26/19 03:24 08:12 08:12 Creatine Kinase 59 CK-MB (CK-2) 1.83 Troponin I 0.052 0.047 Impressions: Head CT 06/25/19 11:45 IMPRESSION: MICROVASCULAR ISCHEMIA AND GENERALIZED ATROPHY. 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 NO ACUTE IMAGING FINDINGS IN THE BRAIN. EVIDENCE OF ACUTE STROKE: NO. KUB X-Ray 06/26/19 00:00 IMPRESSION: The gastrostomy tube is positioned in the stomach and is patent. Chest X-Ray 06/29/19 06:00 IMPRESSION: STABLE APPEARANCE OF THE CHEST. SUPPORT DEVICES UNCHANGED. Assessment & Plan - Diagnosis (1) Sepsis due to Gram negative bacteria Is this a current diagnosis for this admission?: Yes (2) Cardiogenic shock Is this a current diagnosis for this admission?: Yes (3) ARDS (adult respiratory distress syndrome) Is this a current diagnosis for this admission?: Yes (4) Aspiration pneumonia Qualifiers: Aspiration pneumonia type: due to vomit Laterality: bilateral Lung location: unspecified part of lung Qualified Code(s): J69.0 - Pneumonitis due to inhalation of food and vomit Is this a current diagnosis for this admission?: Yes (5) Lactic acid acidosis Is this a current diagnosis for this admission?: Yes (6) Sepsis due to Gram-negative organism with septic shock Is this a current diagnosis for this admission?: Yes (7) Hypotension arterial Qualifiers: Hypotension type: other hypotension type Qualified Code(s): I95.89 - Other hypotension Is this a current diagnosis for this admission?: Yes (8) Left ventricular thrombus Is this a current diagnosis for this admission?: Yes (9) Aspiration pneumonia Qualifiers: Aspiration pneumonia type: due to regurgitated food Laterality: bilateral Lung location: unspecified part of lung Qualified Code(s): J69.0 - Pneumonitis due to inhalation of food and vomit Is this a current diagnosis for this admission?: Yes (10) E coli bacteremia Is this a current diagnosis for this admission?: Yes (11) Enterobacter cloacae pneumonia Is this a current diagnosis for this admission?: Yes (12) Acute metabolic encephalopathy Is this a current diagnosis for this admission?: Yes (13) Escherichia coli urinary tract infection Is this a current diagnosis for this admission?: Yes (14) Complicated UTI (urinary tract infection) Is this a current diagnosis for this admission?: Yes (15) Coma scale finding of eye opening to sound Qualifiers: Qualified Code(s): R40.2130 - Coma scale, eyes open, to sound, unspecified time Is this a current diagnosis for this admission?: Yes Plan: Patient has been in this state for a number of years. She is worse than her already altered baseline (16) Diabetes Qualifiers: Diabetes mellitus type: type 2 Diabetes mellitus ferry terminal agent insulin use: without ferry terminal agent use Diabetes mellitus complication status: with other specified complication Qualified Code(s): E11.69 - Type 2 diabetes mellitus with other specified complication Is this a current diagnosis for this admission?: Yes (17) Atrial fibrillation with controlled ventricular rate Is this a current diagnosis for this admission?: Yes (18) Tooth loss Is this a current diagnosis for this admission?: Yes Plan: Hospice - Time Time Spent with patient: 35 or more minutes Total Critical Time (Minutes): 60 Medications reviewed and adjusted accordingly: Yes Anticipated discharge: Hospice Within: within 24 hours - Inpatient Certification Based on my medical assessment, after consideration of the patient's comorbidities, presenting symptoms, or acuity I expect that the services needed warrant INPATIENT care.: Yes I certify that my determination is in accordance with my understanding of Medicare's requirements for reasonable and necessary INPATIENT services [42 CFR 412.3e].: Yes Medical Necessity: Significant Comorbidiites Make Outpatient Treatment Too Risky, Need Close Monitoring Due to Risk of Patient Decompensation, Need for Neurological Checks Post Hospital Care: D/C Core Manager Documentation - Plan Summary Plan Summary: 07.01.19: Patient is unchanged from yesterday's exam. She appeared to have an aspiration event but is breathing more comfortably today. Has had episodes of hypertension during these episodes with tachycardia and A. fib. She has been given beta-blockers to control this. From a hemodynamic standpoint she is less labile since the beta-ximena was given early this morning. She is still minimally responsive. The family has elected to pursue hospice/palliative care treatment. Her long lengthy discussion with multiple family members it was decided and based on her previously documented wishes. Specifically she did not want to be continued in this quality of life. She had declared that she would not want tube feeding. To that end I have contacted our social work department and a hospice company and will proceed. This request by the family is reasonable and in line with the patient's wishes. 06.30.19: Patient has improved however she has a significantly altered baseline and we do not expect much more improvement. Each of the above infections arabella ious length of antibiotics are noted by infectious disease groups. I far the longest length of time is at least 2 weeks for nonobstructing renal calculi with urinary tract infection. As noted above patient does not have a chronic indwelling Sánchez. We will plan and try to meet with the family to discuss their options. One option may be home with home antibiotics. Is at her normal baseline with not much ability to recover she is not a candidate for acute rehab. Will ask social work to help us with this. We will also discuss with the family what they would want to continue as far as aggressive treatment (e.g. anticoagulation, lipid medications). We will discontinue the NG tube central v enous catheter and art line today. Patient will need replacement of her PEG tube which we will do at bedside as well after discussion with family. 06.29.19: She has baseline diminished motor function and, cognitively, at baseline has minimal interactions. She does occasionally say yes or no. Has been maintained on pressure support however unable to be liberated secondary to marked deconditioning and baseline muscle dysfunction. I had a lengthy discussion again with the family who has elected to pursue liberation from the ventilator and transition to comfort care if she fails. I placed the patient on limited support on the ventilator and she quickly became tachypneic. I anticipate that her liberation from the ventilator will culminate in the need for transition to comfort care. The family is absolutely accepting of this and would prefer this then for the patient to linger in her already baseline altered state. As per government guidelines I did contact the local organ procurement organization ([place] ). And her comorbidities and her recent sepsis she would not be a DCD candidate. Her in agreement with the above and will proceed to liberation from the ventilator. Patient's wishes at baseline were for no prolonged care and given her already altered neurological status she is at risk for failure and would need a tracheostomy. This would be against her wishes and her family's wishes. Assured integrity and respect for her dignity and should she have difficulty with liberation we will treat with comfort care measures. 06.28.19 Patient has had consistent and persistent hypertension and has been placed on beta-ximena and ELBA inhibitor therapy. Added hydralazine to her armamentarium. Patient appears to be tolerating SBT and will order blood gas for this afternoon. Despite what the findings may show as far as encouragement for improvement in her ventilatory function her neurological status is such that I am concerned that she will not tolerate liberation from the ventilator. I re- iterated this with the and the family today. We will continue to provide supportive care. Plan is for reevaluation for liberation from the ventilator. The family states that the patient does not lift her head at baseline and has decreased motor function of the right arm. 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 I am concerned that she will not survive liberation and the family is aware of this and would advocate for comfort care and no prolonged care. This would be her wish as well. 06.27.19: Patient continues to have improvement. Patient has improved to the point that we will start an SBT. Her neurological status is suppressed enough that I do not feel she is safe for liberation however we will start the process of diaphragmatic muscle mobilization. Patient has significant hypertension which is of dramatic significance given her severe hypotension on admission. She still has reduced ejection fraction. At this point we will start beta-ximena and ELBA inhibitor. Her creatinine function has improved significantly as well. She does have atrial fibrillation which appears to be persistent with a controlled rate. She is on heparin for ventricular thrombus and will continue this in addition for atrial fibrillation. From a neurological standpoint patient has a baseline neurological deficit and is bedridden for 5 to 7 years. She appears to have diminished cognition which was made worsened by her infection. She does have metabolic encephalopathy secondary to toxic results from her sepsis. To that and she appears to have hypoactive delirium. Based on numerous case studies and anecdotal evidence patients such as this responded to Ritalin. We will attempt this in an attempt to determine whether we can improve her neurological status. I had a lengthy talk with her and her son Oliver who are her medical power of health care attorney's. They do not want prolonged ventilator care and should she not be able to be weaned they would advocate based on the patient's wishes for comfort care and withdrawal of ventilator support. The care of a critically ill patient is dynamic. This note represents a static time-frame in the admission process. Orders and treatments may be given simultaneously and urgently, and time is not inside sales account representative of the treatment process. This patient requires Critical Care secondary to life-threatening organ or limb dysfunction. Without the need for Critical Care services, the patient is at risk for increased mortality and morbidity. MPOA: Son: Oliver, : Jose
--- NOTE | 2019-07-01 14:33 | PDOC CONSULTATION ---
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 She is unable to give a history even at baseline and most of the history is obtained from the son who was present in the emergency room. Son relates that she appeared to have multiple bouts of emesis on Tuesday and he was careful to make sure that she did not aspirate. Noted that her blood sugars were elevated uncharacteristically. He was breathing okay however within 24 hours she became sick again and had an aspiration event. The home health aide noted that she had increased work of breathing and was less responsive than her normal baseline diminished cognition. She was seen by EMS and noted to be in acute respiratory distress with hypoxia with saturations less than 88%. She was intubated with a #7 ET tube. Hypotensive on admission she improved with the 2 and half liters of normal saline she was given in combination from EMS and the emergency room staff. She also received clindamycin and ampicillin. In addition to above she was given rocuronium for the intubation as well as ketamine because of the hypotension. He was also noted to be febrile with a temp of 102. Initial chest x-ray shows bilateral mixed interstitial alveolar pattern. Significant amount of time was spent in the emergency room in evaluation for patient's cause for her condition. Bedside critical care echo showed a reduced ejection fraction with septal dyskinesis left bundle branch block changes and EF of approximately 20%. A formal echo shows possible left thrombus. She became hypotensive while in the ICU requiring vasopressor therapy. With a reduced ejection fraction she was started on milrinone. Central line and arterial catheters were placed. On vascular ultrasound for critical care procedures it was noted that she had significant calcifications of her arteries and a right radial was unable to be placed resulting in placing a left femoral arterial catheter under ultrasound guidance. A long lengthy discussion was carried out with the son regarding the patient's condition. She had previously declared herself DNR and the son in conjunction with the patient's has agreed. They elected for the intubation hoping for a rapid improvement. We discussed the patient's hypoxia and possible need for higher level of care. At this point the son would not want the [facility] or [facility] ECMO and would want a limited time trial on the ventilator. If she continues to decline he would request comfort measures only. 07/01/2019-medical consult was called for ICU downgrade. Patient is admitted for septic shock and having several episodes of aspiration of oral secretions. Hypotension secondary to sepsis resolved. She is tachycardic receiving beta- ximena therapy in ICU. Family made her DNR/DNI and requested for hospice referral. Patient was successfully extubated on 06/30/2019. Hospice is going to come in talk to the family and assist the patient about recommending comfort care measures. most Of her medications are discontinued. Patient is comfortably in the bed on oxygen via nasal cannula unable to communicate. Past Medical History Cardiac Medical History: Reports: Coronary Artery Disease, Hyperlipidema, Hypertension Denies: Atrial Fibrillation, Congestive Heart Failure, Myocardial Infarction Pulmonary Medical History: Denies: Asthma, Bronchitis, Chronic Obstructive Pulmonary Disease (COPD), Pn eumonia EENT Medical History: Denies: None, Cataracts, Eyes, Ears, Nose, Throat, Other Neurological Medical History: Reports: Ischemic CVA Denies: Hemorrhagic CVA, Seizures Endocrine Medical History: Reports: Diabetes Mellitus Type 1, Diabetes Mellitus Type 2 Renal/ Medical History: Denies: Chronic Kidney Disease, End Stage Renal Disease Malignancy Medical History: Denies: None GI Medical History: Reports: Other Denies: Cirrhosis, Crohn's Disease, Diverticulitis, Gastroesophageal Reflux Disease, Hepatitis, Hiatal Hernia, Peptic Ulcer Disease, Ulcerative Colitis Musculoskeltal Medical History: Denies: Arthritis Skin Medical History: Reports: None Psychiatric Medical History: Reports: None Traumatic Medical History: Reports: None Hematology: Reports: None Denies: Anemia, Other Infectious Medical History: Reports: None Past Surgical History Past Surgical History: Reports: Other - Placement of PEG tube secondary to dysphasia with multiple replacements. Social History Lives with: Family Smoking Status: Unknown if Ever Smoked Last Time Smoked: Many years ago Frequency of Alcohol Use: None Hx Recreational Drug Use: No Drugs: None Hx Prescription Drug Abuse: No - Advance Directive Resuscitation Status: Do Not Resuscitate Family History Family History: Reviewed & Not Pertinent Parental Family History Reviewed: Yes - Hypertension and heart disease. Children Family History Reviewed: Yes Sibling(s) Family History Reviewed.: Yes Medication/Allergy Home Medications: Amlodipine Besylate [Norvasc 5 mg Tablet] 5 mg PO DAILY 06/25/19 Atorvastatin Calcium [Lipitor 80 mg Tablet] 80 mg PO QHS 06/25/19 Clopidogrel Bisulfate [Plavix 75 mg Tablet] 75 mg PO DAILY 06/25/19 Fluoxetine HCl [Prozac 20 mg Capsule] 20 mg PO DAILY 06/25/19 Allergies/Adverse Reactions: No Known Allergies Allergy (Verified 12/01/17 12:42) Review of Systems ROS unobtainable: Due to mental status Physical Exam Vital Signs: Temp Pulse Resp BP Pulse Ox 100.4 F 104 H 20 113/83 100 07/01/19 10:00 07/01/19 10:00 07/01/19 10:01 07/01/19 10:01 07/01/19 10:01 Intake & Output 06/30/19 07/01/19 07/02/19 06:59 06:59 06:59 Intake Total 661 2017 983 Output Total 1005 1250 180 Balance -344 767 803 Weight 57.4 kg 57.7 kg General appearance: PRESENT: no acute distress, disheveled, thin, other - Patient is unable to communicate. Head exam: PRESENT: atraumatic Eye exam: PRESENT: PERRLA Ear exam: PRESENT: normal external ear exam Mouth exam: PRESENT: neck supple Teeth exam: PRESENT: poor dentation Neck exam: ABSENT: carotid bruit, JVD, lymphadenopathy, thyromegaly Respiratory exam: PRESENT: clear to auscultation tova. ABSENT: rales, rhonchi, wheezes Pulses: PRESENT: normal dorsalis pedis pul GI/Abdominal exam: PRESENT: normal bowel sounds, soft. ABSENT: distended, guarding, mass, organolmegaly, rebound, tenderness Rectal exam: PRESENT: deferred Neurological exam: PRESENT: alert, awake, oriented to person, oriented to place, oriented to time, oriented to situation, CN II-XII grossly intact. ABSENT: motor sensory deficit Psychiatric exam: PRESENT: appropriate affect, normal mood. ABSENT: homicidal ideation, suicidal ideation Skin exam: PRESENT: dry, intact, warm. ABSENT: cyanosis, rash Results Laboratory Results: 07/01/19 05:30 07/01/19 05:30 07/01/19 07/01/19 07/01/19 05:30 05:30 08:08 WBC 10.2 RBC 3.86 Hgb 11.8 L Hct 35.3 L MCV 91 MCH 30.5 MCHC 33.4 RDW 13.9 Plt Count 163 Seg Neutrophils % 78.9 H Carbonic Acid 0.75 L HCO3/H2CO3 Ratio 29:1 ABG pH 7.57 H ABG pCO2 24.8 L ABG pO2 86.1 ABG HCO3 22.1 ABG O2 Saturation 97.7 ABG Base Excess 1.7 FiO2 2L Sodium 147.9 H Potassium 3.7 Chloride 115 H Carbon Dioxide 28 Anion Gap 5 BUN 28 H Creatinine 0.50 L Est GFR ( Amer) > 60 Glucose 294 H Calcium 8.8 Phosphorus 2.0 L Magnesium 1.8 06/26/19 10:37 Blood Blood Culture - Final NO GROWTH IN 5 DAYS 06/26/19 05:35 Blood Blood Culture - Final NO GROWTH IN 5 DAYS 06/25/19 06/25/19 06/25/19 11:50 11:50 19:10 Creatine Kinase 30 CK-MB (CK-2) 0.70 Troponin I 0.066 0.070 06/26/19 06/26/19 06/26/19 03:24 08:12 08:12 Creatine Kinase 59 CK-MB (CK-2) 1.83 Troponin I 0.052 0.047 Impressions: Head CT 06/25/19 11:45 IMPRESSION: MICROVASCULAR ISCHEMIA AND GENERALIZED ATROPHY. 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 NO ACUTE IMAGING FINDINGS IN THE BRAIN. EVIDENCE OF ACUTE STROKE: NO. KUB X-Ray 06/26/19 00:00 IMPRESSION: The gastrostomy tube is positioned in the stomach and is patent. Chest X-Ray 06/29/19 06:00 IMPRESSION: STABLE APPEARANCE OF THE CHEST. SUPPORT DEVICES UNCHANGED. Assessment and Plan - Plan Summary Summary: 07/01/2019-medical consult was called for ICU downgrade. Patient CODE STATUS is DNR/DNI. Family agreed for hospice referral and hospice is going to come and evaluate her for comfort care measures only. Family is aware of the overall poor prognosis critical condition. Needs to start her on IV morphine for pain management and IV Ativan along with scopolamine patch. freezer worker consult was requested. 07.01.19: Patient is unchanged from yesterday's exam. She appeared to have an aspiration event but is breathing more comfortably today. Has had episodes of hypertension during these episodes with tachycardia and A. fib. She has been given beta-blockers to control this. From a hemodynamic standpoint she is less labile since the beta-ximena was given early this morning. She is still minimally responsive. The family has elected to pursue hospice/palliative care treatment. Her long lengthy discussion with multiple family members it was decided and based on her previously documented wishes. Specifically she did not want to be continued in this quality of life. She had declared that she would not want tube feeding. To that end I have contacted our social work department and a hospice company and will proceed. This request by the family is reasonable and in line with the patient's wishes. 06.30.19: Patient has improved however she has a significantly altered baseline and we do not expect much more improvement. Each of the above infections various length of antibiotics are noted by infectious disease groups. I far the longest length of time is at least 2 weeks for nonobstructing renal calculi with urinary tract infection. As noted above patient does not have a chronic indwelling Sánchez. We will plan and try to meet with the family to discuss their options. One option may be home with home antibiotics. Is at her normal baseline with not much ability to recover she is not a candidate for acute rehab. Will ask social work to help us with this. We will also discuss with the family what they would want to continue as far as aggressive treatment (e.g. anticoagulation, lipid medications). We will discontinue the NG tube central venous catheter and art line today. Patient will need replacement of her PEG tube which we will do at bedside as well after discussion with family. 06.29.19: She has baseline diminished motor function and, cognitively, at baseline has minimal interactions. She does occasionally say yes or no. Has been maintained on pressure support however unable to be liberated secondary to marked deconditioning and baseline muscle dysfunction. I had a lengthy discussion again with the family who has elected to pursue liberation from the ventilator and transition to comfort care if she fails. I placed the patient on limited support on the ventilator and she quickly became tachypneic. I anticipate that her liberation from the ventilator will culminate in the need for transition to comfort care. The family is absolutely accepting of this and would prefer this then for the patient to linger in her already baseline altered state. As per government guidelines I did contact the local organ procurement organization ([employer] ). And her comorbidities and her recent sepsis she would not be a DCD candidate. Her in agreement with the above and will proceed to liberation from the ventilator. Patient's wishes at baseline were for no prolonged care and given her already altered neurological status she is at risk for failure and would need a tracheostomy. This would be against her wishes and her family's wishes. Assured integrity and respect for her dignity and should she have difficulty with liberation we will treat with comfort care measures. 06.28.19 Patient has had consistent and persistent hypertension and has been placed on beta-ximena and ELBA inhibitor therapy. Added hydralazine to her armamentarium. Patient appears to be tolerating SBT and will order blood gas for this afternoon. Despite what the findings may show as far as encouragement for improvement in her ventilatory function her neurological status is such that I am concerned that she will not tolerate liberation from the ventilator. I re- iterated this with the and the family today. We will continue to provide supportive care. Plan is for reevaluation for liberation from the ventilator. The family states that the patient does not lift her head at baseline and has decreased motor function of the right arm. 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 I am concerned that she will not survive liberation and the family is aware of this and would advocate for comfort care and no prolonged care. This would be her wish as well. 06.27.19: Patient continues to have improvement. Patient has improved to the point that we will start an SBT. Her neurological status is suppressed enough that I do not feel she is safe for liberation however we will start the process of diaphragmatic muscle mobilization. Patient has significant hypertension which is of dramatic significance given her severe hypotension on admission. She still has reduced ejection fraction. At this point we will start beta-ximena and ELBA inhibitor. Her creatinine function has improved significantly as well. She does have atrial fibrillation which appears to be persistent with a controlled rate. She is on heparin for ventricular thrombus and will continue this in addition for atrial fibrillation. From a neurological standpoint patient has a baseline neurological deficit and is bedridden for 5 to 7 years. She appears to have diminished cognition which was made worsened by her infection. She does have metabolic encephalopathy secondary to toxic results from her sepsis. To that and she appears to have hypoactive delirium. Based on numerous case studies and anecdotal evidence patients such as this responded to Ritalin. We will attempt this in an attempt to determine whether we can improve her neurological status. I had a lengthy talk with her and her son Oliver who are her medical power of real estate attorney's. They do not want prolonged ventilator care and should she not be able to be weaned they would advocate based on the patient's wishes for comfort care and withdrawal of ventilator support. The care of a critically ill patient is dynamic. This note represents a static time-frame in the admission process. Orders and treatments may be given simultaneously and urgently, and time is not marketing development representative of the treatment process. This patient requires Critical Care secondary to life-threatening organ or limb dysfunction. Without the need for Critical Care services, the patient is at risk for increased mortality and morbidity. MPOA: Son: Oliver, : Jose - Time Time Spent with patient: 25-34 minutes Medications reviewed and adjusted accordingly: Yes Anticipated discharge: Hospice
--- NOTE | 2019-07-02 08:51 | PDOC DISCHARGE SUMMARY ---
Impression - Admit/DC Date/PCP Admission Date/Primary Care Provider: 06/25/19 14:52 RIANNA CASE PA-C Discharge Date: 07/02/19 - Assessment Summary: 07/02/2019-patient is on comfort care measures go home with home when needed hospice care. 07/01/2019-medical consult was called for ICU downgrade. Patient CODE STATUS is DNR/DNI. Family agreed for hospice referral and hospice is going to come and evaluate her for comfort care measures only. Family is aware of the overall poor prognosis critical condition. Needs to start her on IV morphine for pain management and IV Ativan along with scopolamine patch. criminal justice social worker consult was requested. 07.01.19: Patient is unchanged from yesterday's exam. She appeared to have an aspiration event but is breathing more comfortably today. Has had episodes of hypertension during these episodes with tachycardia and A. fib. She has been given beta-blockers to control this. From a hemodynamic standpoint she is less labile since the beta-ximena was given early this morning. She is still minimally responsive. The family has elected to pursue hospice/palliative care treatment. Her long lengthy discussion with multiple family members it was decided and based on her previously documented wishes. Specifically she did not want to be continued in this quality of life. She had declared that she would not want tube feeding. To that end I have contacted our social work department and a hospice company and will proceed. This request by the family is reasonable and in line with the patient's wishes. 06.30.19: Patient has improved however she has a significantly altered baseline and we do not expect much more improvement. Each of the above infections various length of antibiotics are noted by infectious disease groups. I far the longest length of time is at least 2 weeks for nonobstructing renal calculi with urinary tract infection. As noted above patient does not have a chronic indwelling Sánchez. We will plan and try to meet with the family to discuss their options. One option may be home with home antibiotics. Is at her normal baseline with not much ability to recover she is not a candidate for acute rehab. Will ask social work to help us with this. We will also discuss with the family what they would want to continue as far as aggressive treatment (e.g. anticoagulation, lipid medications). We will discontinue the NG tube central venous catheter and art line today. Patient will need replacement of her PEG tube which we will do at bedside as well after discussion with family. 06.29.19: She has baseline diminished motor function and, cognitively, at baseline has minimal interactions. She does occasionally say yes or no. Has b een maintained on pressure support however unable to be liberated secondary to marked deconditioning and baseline muscle dysfunction. I had a lengthy discussion again with the family who has elected to pursue liberation from the ventilator and transition to comfort care if she fails. I placed the patient on limited support on the ventilator and she quickly became tachypneic. I anticipate that her liberation from the ventilator will culminate in the need for transition to comfort care. The family is absolutely accepting of this and would prefer this then for the patient to linger in her already baseline altered state. As per government guidelines I did contact the local organ procurement organization ([employer] ). And her comorbidities and her recent sepsis she would not be a DCD candidate. Her in agreement with the above and will proceed to liberation from the ventilator. Patient's wishes at baseline were for no prolonged care and given her already altered neurological status she is at risk for failure and would need a tracheostomy. This would be against her wishes and her family's wishes. Assured integrity and respect for her dignity and should she have difficulty with liberation we will treat with comfort care measures. 06.28.19 Patient has had consistent and persistent hypertension and has been placed on beta-ximena and ELBA inhibitor therapy. Added hydralazine to her armamentarium. Patient appears to be tolerating SBT and will order blood gas for this afternoon. Despite what the findings may show as far as encouragement for improvement in her ventilatory function her neurological status is such that I am concerned that she will not tolerate liberation from the ventilator. I re- iterated this with the and the family today. We will continue to provide supportive care. Plan is for reevaluation for liberation from the ventilator. The family states that the patient does not lift her head at baseline and has decreased motor f unction of the right arm. 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 I am concerned that she will not survive liberation and the family is aware of this and would advocate for comfort care and no prolonged care. This would be her wish as well. 06.27.19: Patient continues to have improvement. Patient has improved to the point that we will start an SBT. Her neurological status is suppressed enough that I do not feel she is safe for liberation however we will start the process of diaphragmatic muscle mobilization. Patient has significant hypertension which is of dramatic significance given her severe hypotension on admission. She still has reduced ejection fraction. At this point we will start beta-ximena and ELBA inhibitor. Her creatinine function has improved significantly as well. She does have atrial fibrillation which appears to be persistent with a controlled rate. She is on heparin for ventricular thrombus and will continue this in addition for atrial fibrillation. From a neurological standpoint patient has a baseline neurological deficit and is bedridden for 5 to 7 years. She appears to have diminished cognition which was made worsened by her infection. She does have metabolic encephalopathy secondary to toxic results from her sepsis. To that and she appears to have hypoactive delirium. Based on numerous case studies and anecdotal evidence patients such as this responded to Ritalin. We will attempt this in an attempt to determine whether we can improve her neurological status. I had a lengthy talk with her and her son Oliver who are her medical power of sales and marketing specialist's. They do not want prolonged ventilator care and should she not be able to be weaned they would advocate based on the patient's wishes for comfort care and withdrawal of ventilator support. The care of a critically ill patient is dynamic. This note represents a static time-frame in the admission process. Orders and treatments may be given simultaneously and urgently, and time is not merchandiser retail representative of the treatment process. This patient requires Critical Care secondary to life-threatening organ or limb dysfunction. Without the need for Critical Care services, the patient is at risk for increased mortality and morbidity. 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 She is unable to give a history even at baseline and most of the history is obtained from the son who was present in the emergency room. Son relates that she appeared to have multiple bouts of emesis on Tuesday and he was careful to make sure that she did not aspirate. Noted that her blood sugars were elevated uncharacteristically. He was breathing okay however within 24 hours she became sick again and had an aspiration event. The home health aide noted that she had increased work of breathing and was less responsive than her normal baseline diminished cognition. She was seen by EMS and noted to be in acute respiratory distress with hypoxia with saturations less than 88%. She was intubated with a #7 ET tube. Hypotensive on admission she improved with the 2 and half liters of normal saline she was given in combination from EMS and the emergency room staff. She also received clindamycin and ampicillin. In addition to above she was given rocuronium for the intubation as well as ketamine because of the hypotension. He was also noted to be febrile with a temp of 102. Initial chest x-ray shows bilateral mixed interstitial alveolar pattern. Significant amount of time was spent in the emergency room in evaluation for patient's cause for her condition. Bedside critical care echo showed a reduced ejection fraction with septal dyskinesis left bundle branch block changes and EF of approximately 20%. A formal echo shows possible left thrombus. She became hypotensive while in the ICU requiring vasopressor thera py. With a reduced ejection fraction she was started on milrinone. Central line and arterial catheters were placed. On vascular ultrasound for critical care procedures it was noted that she had significant calcifications of her arteries and a right radial was unable to be placed resulting in placing a left femoral arterial catheter under ultrasound guidance. A long lengthy discussion was carried out with the son regarding the patient's condition. She had previously declared herself DNR and the son in conjunction with the patient's has agreed. They elected for the intubation hoping for a rapid improvement. We discussed the patient's hypoxia and possible need for higher level of care. At this point the son would not want the VA or VV ECMO and would want a limited time trial on the ventilator. If she continues to decline he would request comfort measures only. 07/01/2019-medical consult was called for ICU downgrade. Patient is admitted for septic shock and having several episodes of aspiration of oral secretions. Hypotension secondary to sepsis resolved. She is tachycardic receiving beta- ximena therapy in ICU. Family made her DNR/DNI and requested for hospice r eferral. Patient was successfully extubated on 06/30/2019. Hospice is going to come in talk to the family and assist the patient about recommending comfort care measures. most Of her medications are discontinued. Patient is comfortably in the bed on oxygen via nasal cannula unable to communicate. Hospital Course Hospital Course: 64 year old female 64-year-old white female with a story of chronic bedridden state secondary to multiple strokes. She is unable to give a history even at baseline and most of the history is obtained from the son who was present in the emergency room. Son relates that she appeared to have multiple bouts of emesis on Tuesday and he was careful to make sure that she did not aspirate. Noted that her blood sugars were elevated uncharacteristically. He was breathing okay however within 24 hours she became sick again and had an aspiration event. The home health aide noted that she had increased work of breathing and was less responsive than her normal baseline diminished cognition. She was seen by EMS and noted to be in acute respiratory distress with hypoxia with saturations less than 88%. She was intubated with a #7 ET tube. Hypotensive on admission she improved with the 2 and half liters of normal saline she was given in combination from EMS and the emergency room staff. She also received clindamycin and ampicillin. In addition to above she was given rocuronium for the intubation as well as ketamine because of the hypotension. He was also noted to be febrile with a temp of 102. Initial chest x-ray shows bilateral mixed interstitial alveolar pattern. Significant amount of time was spent in the emergency room in evaluation for patient's cause for her condition. Bedside critical care echo showed a reduced ejection fraction with septal dyskinesis left bundle branch block changes and EF of approximately 20%. A formal echo shows possible left thrombus. She became hypotensive while in the ICU requiring vasopressor therapy. With a reduced ejection fraction she was started on milrinone. Central line and arterial catheters were placed. On vascular ultrasound for critical care procedures it was noted that she had significant calcifications of her arteries and a right radial was unable to be placed resulting in placing a left femoral arterial catheter under ultrasound guidance. A long lengthy discussion was carried out with the son regarding the patient's condition. She had previously declared herself DNR and the son in conjunction with the patient's has agreed. They elected for the intubation hoping for a rapid improvement. We discussed the patient's hypoxia and possible need for higher level of care. At this point the son would not want the VA or VV ECMO and would want a limited time trial on the ventilator. If she continues to decline he would request comfort measures only. 07/01/2019-medical consult was called for ICU downgrade. Patient is admitted for septic shock and having several episodes of aspiration of oral secretions. Hypotension secondary to sepsis resolved. She is tachycardic receiving beta- ximean therapy in ICU. Family made her DNR/DNI and requested for hospice referral. Patient was successfully extubated on 06/30/2019. Hospice is going to come in talk to the family and assist the patient about recommending comfort care measures. most Of her medications are discontinued. Patient is comfortably in the bed on oxygen via nasal cannula unable to communicate. 07/02/2019-patient is going home with [facility]. She is on comfort care measures. Physical Exam Vital Signs: Temp Pulse Resp BP Pulse Ox 100.4 F 104 H 20 113/83 100 07/01/19 10:00 07/01/19 10:00 07/01/19 10:01 07/01/19 10:01 07/01/19 10:01 Intake & Output 07/01/19 07/02/19 07/03/19 06:59 06:59 06:59 Intake Total 2067 983 Output Total 1250 680 Balance 817 303 Weight 57.7 kg 57.6 kg General appearance: PRESENT: mild distress, other - Patient is unresponsive. Head exam: PRESENT: atraumatic Eye exam: PRESENT: other - Constricted but reactive. Mouth exam: PRESENT: dry mucosa Teeth exam: PRESENT: poor dentation Respiratory exam: PRESENT: decreased breath sounds Cardiovascular exam: PRESENT: tachycardia GI/Abdominal exam: PRESENT: normal bowel sounds, soft. ABSENT: distended, guarding, mass, organolmegaly, rebound, tenderness Rectal exam: PRESENT: deferred Neurological exam: PRESENT: altered, other Results Laboratory Results: WBC 10.2 10^3/uL (4.0-10.5) 07/01/19 05:30 RBC 3.86 10^6/uL (3.72-5.28) 07/01/19 05:30 Hgb 11.8 g/dL (12.0-15.5) L 07/01/19 05:30 Hct 35.3 % (36.0-47.0) L 07/01/19 05:30 MCV 91 fl (80-97) 07/01/19 05:30 MCH 30.5 pg (27.0-33.4) 07/01/19 05:30 MCHC 33.4 g/dL (32.0-36.0) 07/01/19 05:30 RDW 13.9 % (11.5-14.0) 07/01/19 05:30 Plt Count 163 10^3/uL (150-450) 07/01/19 05:30 Lymph % (Auto) 12.0 % (13-45) L 07/01/19 05:30 Bryan % (Auto) 8.1 % (3-13) 07/01/19 05:30 Eos % (Auto) 0.8 % (0-6) 07/01/19 05:30 Baso % (Auto) 0.2 % (0-2) 07/01/19 05:30 Absolute Neuts (auto) 8.1 10^3/uL (1.7-8.2) 07/01/19 05:30 Absolute Lymphs (auto) 1.2 10^3/uL (0.5-4.7) 07/01/19 05:30 Absolute Monos (auto) 0.8 10^3/uL (0.1-1.4) 07/01/19 05:30 Absolute Eos (auto) 0.1 10^3/uL (0.0-0.6) 07/01/19 05:30 Absolute Basos (auto) 0.0 10^3/uL (0.0-0.2) 07/01/19 05:30 Total Counted 100 06/27/19 03:55 Seg Neutrophils % 78.9 % (42-78) H 07/01/19 05:30 Seg Neuts % (Manual) 76 % (42-78) 06/27/19 03:55 Band Neutrophils % 5 % (3-5) 06/27/19 03:55 Lymphocytes % (Manual) 17 % (13-45) 06/27/19 03:55 Monocytes % (Manual) 2 % (3-13) L 06/27/19 03:55 Eosinophils % (Manual) 0 % (0-6) 06/27/19 03:55 Basophils % (Manual) 0 % (0-2) 06/27/19 03:55 Metamyelocytes % 1 % (0) H 06/26/19 05:37 Abs Neuts (Manual) 6.4 10^3/uL (1.7-8.2) 06/27/19 03:55 Abs Lymphs (Manual) 1.3 10^3/uL (0.5-4.7) 06/27/19 03:55 Abs Monocytes (Manual) 0.2 10^3/uL (0.1-1.4) 06/27/19 03:55 Absolute Eos (Manual) 0.0 10^3/uL (0.0-0.6) 06/27/19 03:55 Abs Basophils (Manual) 0.0 10^3/uL (0.0-0.2) 06/27/19 03:55 Toxic Vacuolation PRESENT 06/27/19 03:55 Platelet Comment DECREASED 06/27/19 03:55 Polychromasia SLIGHT 06/25/19 11:50 Hypochromasia 2+ 06/27/19 03:55 RBC Morph Comment NORMO-CYTIC/CHROMIC 06/26/19 05:37 ESR 73 mm/hr (0-30) H 07/01/19 05:30 PT 17.0 SEC (11.4-15.4) H 06/27/19 03:55 INR 1.37 06/27/19 03:55 APTT 38.1 SEC (23.5-35.8) H 06/30/19 06:30 Carbonic Acid 0.75 mmol/L (1.05-1.35) L 07/01/19 08:08 HCO3/H2CO3 Ratio 29:1 07/01/19 08:08 ABG pH 7.57 (7.35-7.45) H 07/01/19 08:08 ABG pCO2 24.8 mmHg (35-45) L 07/01/19 08:08 ABG pO2 86.1 mmHg (80-100) 07/01/19 08:08 ABG HCO3 22.1 mmol/L (20-24) 07/01/19 08:08 ABG Total CO2 22.8 mmol/L (21-25) 07/01/19 08:08 ABG O2 Saturation 97.7 % (94-98) 07/01/19 08:08 ABG Base Excess 1.7 mmol/L 07/01/19 08:08 VBG pH Cancelled 06/26/19 16:40 VBG pCO2 Cancelled 06/26/19 16:40 VBG HCO3 Cancelled 06/26/19 16:40 VBG Base Excess Cancelled 06/26/19 16:40 FiO2 2L 07/01/19 08:08 Sodium 147.9 mmol/L (137-145) H 07/01/19 05:30 Potassium 3.7 mmol/L (3.6-5.0) 07/01/19 05:30 Chloride 115 mmol/L (98-107) H 07/01/19 05:30 Carbon Dioxide 28 mmol/L (22-30) 07/01/19 05:30 Anion Gap 5 (5-19) 07/01/19 05:30 BUN 28 mg/dL (7-20) H 07/01/19 05:30 Creatinine 0.50 mg/dL (0.52-1.25) L 07/01/19 05:30 Est GFR ( Amer) > 60 (>60) 07/01/19 05:30 Est GFR (Non-Af Amer) Cancelled 06/29/19 06:45 Est GFR (MDRD) Non-Af > 60 (>60) 07/01/19 05:30 Glucose 294 mg/dL (75-110) H 07/01/19 05:30 POC Glucose 277 mg/dL (70-110) H 06/30/19 18:37 Hemoglobin A1c % 6.2 % (4.7-6.0) H 06/26/19 05:37 Lactic Acid 1.4 mmol/L (0.7-2.1) 06/26/19 16:37 Calcium 8.8 mg/dL (8.4-10.2) 07/01/19 05:30 Phosphorus 2.0 mg/dL (2.5-4.5) L 07/01/19 05:30 Magnesium 1.8 mg/dL (1.6-2.3) 07/01/19 05:30 Total Bilirubin 0.7 mg/dL (0.2-1.3) 06/27/19 03:55 Direct Bilirubin 0.3 mg/dL (0.0-0.4) 06/27/19 03:55 Neonat Total Bilirubin Not Reportable 06/27/19 03:55 Neonat Direct Bilirubin Not Reportable 06/27/19 03:55 Neonat Indirect Bili Not Reportable 06/27/19 03:55 AST 32 U/L (14-36) 06/27/19 03:55 ALT 22 U/L (<35) 06/27/19 03:55 Alkaline Phosphatase 77 U/L (38-126) 06/27/19 03:55 Ammonia < 8.7 umol/L (9-33) L 06/29/19 05:27 Creatine Kinase 59 U/L (30-135) 06/26/19 08:12 CK-MB (CK-2) 1.83 ng/mL (<4.55) 06/26/19 08:12 Troponin I 0.047 ng/mL 06/26/19 08:12 Total Protein 5.1 g/dL (6.3-8.2) L 06/27/19 03:55 Albumin 2.4 g/dL (3.5-5.0) L 06/27/19 03:55 EGFR Cancelled 06/29/19 06:45 TSH 1.13 uIU/mL (0.47-4.68) 06/25/19 11:50 Free T4 1.33 ng/dL (0.78-2.19) 06/25/19 11:50 Random Cortisol 111.00 ug/dL (None Established) 06/25/19 19:10 Urine Color KENDALL 06/27/19 04:34 Urine Appearance TURBID 06/27/19 04:34 Urine pH 5.0 (5.0-9.0) 06/27/19 04:34 Ur Specific [place] 1.025 06/27/19 04:34 Urine Protein NEGATIVE mg/dL (NEGATIVE) 06/27/19 04:34 Urine Glucose (UA) NEGATIVE mg/dL (NEGATIVE) 06/27/19 04:34 Urine Ketones TRACE mg/dL (NEGATIVE) H 06/27/19 04:34 Urine Blood NEGATIVE (NEGATIVE) 06/27/19 04:34 Urine Nitrite NEGATIVE (NEGATIVE) 06/27/19 04:34 Urine Bilirubin NEGATIVE (NEGATIVE) 06/27/19 04:34 Urine Urobilinogen NEGATIVE mg/dL (<2.0) 06/27/19 04:34 Ur Leukocyte Esterase SMALL (NEGATIVE) H 06/27/19 04:34 Urine WBC (Auto) 4 /HPF 06/27/19 04:34 Urine RBC (Auto) 1 /HPF 06/27/19 04:34 U Hyaline Cast (Auto) Cancelled 06/25/19 12:08 Urine Bacteria (Auto) Cancelled 06/25/19 12:08 Urine Red Cell Clumps Cancelled 06/25/19 12:08 Urine WBC Clumps MANY /HPF 06/25/19 21:20 Squamous Epi Cells Auto 1 /HPF 06/27/19 04:34 U Non-Squamous Epis Auto 1 /HPF 06/25/19 21:20 Calcium Carbonate Cryst Cancelled 06/25/19 12:08 Calcium Phosphate Cryst Cancelled 06/25/19 12:08 Calcium Oxalate Cr Auto Cancelled 06/25/19 12:08 Leucine Crystals Cancelled 06/25/19 12:08 Cystine Crystals Cancelled 06/25/19 12:08 Uric Acid Cryst (Auto) Cancelled 06/25/19 12:08 Triple Phos Cryst (Auto) Cancelled 06/25/19 12:08 Tyrosine Crystals Cancelled 06/25/19 12:08 Amorphous Sediment Auto Cancelled 06/25/19 12:08 Cellular Casts Cancelled 06/25/19 12:08 Epithelial Casts (Auto) Cancelled 06/25/19 12:08 Fatty Casts Cancelled 06/25/19 12:08 Granular Casts (Auto) Cancelled 06/25/19 12:08 Waxy Casts (Auto) Cancelled 06/25/19 12:08 Broad Casts Cancelled 06/25/19 12:08 RBC Casts (Auto) Cancelled 06/25/19 12:08 WBC Casts (Auto) Cancelled 06/25/19 12:08 Urine Mucus (Auto) RARE /LPF 06/27/19 04:34 U Trichomonas (Auto) Cancelled 06/25/19 12:08 Ur Yeast w Hyphae Cancelled 06/25/19 12:08 Urine Yeast (Budding) Cancelled 06/25/19 12:08 Urine Ascorbic Acid 40 (NEGATIVE) H 06/27/19 04:34 Influenza A (Rapid) NEGATIVE (NEGATIVE) 06/25/19 23:25 Influenza B (Rapid) NEGATIVE (NEGATIVE) 06/25/19 23:25 06/25/19 06/25/19 06/26/19 11:50 19:10 03:24 CK-MB (CK-2) 0.70 Troponin I 0.066 0.070 0.052 06/26/19 08:12 CK-MB (CK-2) 1.83 Troponin I 0.047 Impressions: Chest X-Ray 06/25/19 00:00 IMPRESSION: Interval placement of right IJ approach central venous catheter with its tip located in the upper SVC. Patchy bilateral mid to lower lung zone airspace disease, new from the previous exam. Consider atelectasis, pneumonia, or edema. copyright 2010 [employer]- All Rights Reserved KUB X-Ray 06/25/19 00:00 IMPRESSION: Enteric drainage tube tip is located within the gastric body. copyright 2010 [employer]- All Rights Reserved Chest X-Ray 06/25/19 11:45 IMPRESSION: 1. Bilateral perihilar airspace disease, more extensive on the right, considerations for these findings include infiltrates. 2. Endotracheal and nasogastric tubes. Head CT 06/25/19 11:45 IMPRESSION: MICROVASCULAR ISCHEMIA AND GENERALIZED ATROPHY. 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 NO ACUTE IMAGING FINDINGS IN THE BRAIN. EVIDENCE OF ACUTE STROKE: NO. KUB X-Ray 06/26/19 00:00 IMPRESSION: The gastrostomy tube is positioned in the stomach and is patent. Chest X-Ray 06/26/19 14:45 IMPRESSION: Multicentric pneumonia. Chest X-Ray 06/27/19 14:45 IMPRESSION: Mildly improved but persistent patchy left mid and lower lobe airspace disease. Stable lines and tubes as above. Chest X-Ray 06/28/19 06:00 IMPRESSION: Persistent left retrocardiac consolidation Tubes and lines in good positioning. Chest X-Ray 06/29/19 06:00 IMPRESSION: STABLE APPEARANCE OF THE CHEST. SUPPORT DEVICES UNCHANGED. Plan Goals: Patient is [facility] home with [facility]. Time Spent: Less than 30 Minutes Stroke Is this a Stroke Patient?: No Acute Heart Failure - Is this a Heart Failure Patient?: No
== END 2019-07-02 17:34 | disposition hospice, home (50) | DRG 870 ==
LOC: ER 11:37 → EH 14:52 → ICU 16:30 → 5 07-01 14:27
PROVIDERS: ADMIT Internal Medicine Critical Care Medicine; ATTEND Internal Medicine Critical Care Medicine
PROC: 5A1955Z Respiratory Ventilation, Greater than 96 Consecutive Hours (ICD-10-PCS; principal; 2019-06-25)
PROC: 02HV33Z Insertion of Infusion Device into Superior Vena Cava, Percutaneous Approach (ICD-10-PCS; 2019-06-25)
PROC: B548ZZA Ultrasonography of Superior Vena Cava, Guidance (ICD-10-PCS; 2019-06-25)
PROC: 04HL33Z Insertion of Infusion Device into Left Femoral Artery, Percutaneous Approach (ICD-10-PCS; 2019-06-25)
DX: A41.51 Sepsis due to Escherichia coli [E. coli] (principal); R57.0 Cardiogenic shock; J69.0 Pneumonitis due to inhalation of food and vomit; J80 Acute respiratory distress syndrome; R65.21 Severe sepsis with septic shock; G93.41 Metabolic encephalopathy; I24.0 Acute coronary thrombosis not resulting in myocardial infarction; N39.0 Urinary tract infection, site not specified; I69.354 Hemiplegia and hemiparesis following cerebral infarction affecting left non-dominant side; E87.2 Acidosis; I10 Essential (primary) hypertension; I48.91 Unspecified atrial fibrillation; E11.69 Type 2 diabetes mellitus with other specified complication; M62.49 Contracture of muscle, multiple sites; K02.9 Dental caries, unspecified; I95.89 Other hypotension; Z74.01 Bed confinement status; Z93.1 Gastrostomy status; Z79.01 Long term (current) use of anticoagulants; Z79.899 Other long term (current) drug therapy
CPT/HCPCS: 36415; 36600; 51702; 70450; 71045; 74018; 80048; 80053; 81001; 82140; 82533; 82550; 82553; 82803; 82962; 83036; 83605; 83735; 84100; 84439; 84443; 84484; 85025; 85610; 85652; 85730; 87040; 87070; 87077; 87086; 87088; 87186; 87205; 87804; 93005; 93010; 93306; 94002; 94003; 96361; 96365; 96367; 99291; C1751; J0295; J0360; J0696; J1120; J1644; J1940; J2185; J2260; J2270; J2704; J3010; J3480; J3490; J7030; J7060; P9041